=== PATIENT | female | born 1990 | race African-American/Black ===

== ENCOUNTER 2017-12-21 20:50 | Inpatient (IN) | payer OTHER ==
[~2017-12-21] VITALS: Ht 160 cm; Wt 80.7 kg
[~2017-12-21 20:50] MED LIST: AMITRIPTYLINE H50 MG PO; AMITRIPTYLINE50 MG PO; AUGMENTIN 875875 MG PO; AVONEX PEN30 MCG/0.5 IM; BUPROPION HCL150 M4 PO; CIPRO HC OTIC S10 ML NASB; CIPROFLOXACIN500 MG PO; COPAXONE40 MG/ML SC; ELIQUIS2.5 M1 PO; FERROUS SULFAT325 M1 PO; LIDOCAINE1 EACH TOP; LOVENOX 10100 MG/1 M SC; LOVENOX 3030 MG/0.1 SC; LUNESTA3 MG PO; METHOCARBAMOL750 MG PO; MOTRIN 400MG (400 MG PO; NEOMYCIN-POLYMY10 ML OTIC; OCREVUS300 MG/10 IV; OXYBUTYNIN CHLOR5 M2 PO; OXYBUTYNIN5 MG PO; PANTOPRAZOLE SO40 M1 PO; PREDNISONE10 MG PO; PREVACID 30MG30 MG PO; PROTONIX 40MG T40 MG PO; PROVERA5 M1 PO; RIVA15T PO; SOLU MEDROL; SOLU-MEDROL1000 MG IV; TECFIDERA240 MG PO; TIZANIDINE HCL2 M1 PO; TIZANIDINE HCL2 MG PO; TOPIRAMATE25 M1 PO; TOPIRAMATE50 M1 PO; TRAMADOL HCL50 M1 PO; TRAMADOL HCL50 MG PO; VERAPAMIL ER180 MG PO; VITAMIN B11000 MCG/M IM; VITAMIN D2000 UNI1 PO; VITAMIN D250000 UNIT PO; VITAMIN D50000 IU PO; XARELTO15 MG PO; XARELTO20 MG PO
--- NOTE | 2017-12-21 21:03 | ED GENERAL ADULT ---
History of Present Illness General Chief Complaint: General Adult Stated Complaint: HEADACHE AND SHOULDER PAIN Source: patient, old records Exam Limitations: no limitations Vital Signs & Intake/Output Vital Signs & Intake/Output Vital Signs Date Time Temp Pulse Resp B/P B/P Pulse O2 O2 Flow FiO2 Mean Ox Delivery Rate 12/21 2105 98.6 102 20 115/66 99 Room Air Allergies Coded Allergies: NO KNOWN ALLERGIES (09/18/15) Reconcile Medications Apixaban (Eliquis) 2.5 MG TABLET 1 TAB PO BID BLOOD THINNER (Reported) Bupropion HCl (Bupropion HCl Sr) 150 MG TABLET.ER 1 TAB PO DAILY MENTAL HEALTH (Reported) Cholecalciferol (Vitamin D3) (Vitamin D) 2,000 UNIT TABLET 1 TAB PO DAILY supplement Ciprofloxacin/Hydrocortisone (Cipro Hc Otic Suspension) 0.2 %-1 % DROPS.SUSP 2 SPRAY NASB AD PRN NASAL CONGESTION (Reported) Ergocalciferol (Vitamin D2) (Vitamin D2) 50,000 UNIT CAPSULE 1 CAP PO QSUN SUPPLEMENT (Reported) Lidocaine 5 % ADH..PATCH 1 PAT TOP AD PRN PAIN (Reported) Medroxyprogesterone Acetate (Provera) 5 MG TABLET 1 TAB PO AD PRN MESNTRUAL CYCLE (Reported) Methylprednisolone Sod Succ (Solu-Medrol) 1,000 MG VIAL 1,000 MG IV DAILY MS EXACERBATION Neomycin/Polymyxin B Sulf/Hc (Panfmamd-Anyflsmfc-Gj Ear Soln) 3.5 MG/ML-10,000 UNIT/ML-1 % SOLUTION 2-3 DROP OTIC AD PRN ITCHING (Reported) Ocrelizumab (Ocrevus) 300 MG/10 ML VIAL 300 MG IV Q6M MS (Reported) Oxybutynin Chloride 5 MG TABLET 2 TAB PO BID BLADDER (Reported) Pantoprazole Sodium 40 MG TABLET.DR 1 TAB PO DAILY GI (Reported) Tizanidine HCl 2 MG TABLET 1-2 TAB PO BID PRN MUSCLE SPASMS (Reported) Topiramate 50 MG TABLET 1 TAB PO DAILY MIGRAINES (Reported) Tramadol HCl 50 MG TABLET 2 TAB PO TID PAIN (Reported) Verapamil HCl (Verapamil ER) 180 MG CAP24H.PEL 1 CAP PO DAILY BP (Reported) Triage Note: PT BIBA FROM HOME WITH C/O HEADACHE, SHOULDER PAIN AND GENERAL MALAISE x 4 DAYS. EMS REPORTS THAT PT HAS RECENTLY STARTED A NEW COURSE OF STEROID TX FOR HER MS, AND WITH TX, PT HAS EXPERIENCED AN INCREASE IN OVERALL BODY PAIN. Triage Nurses Notes Reviewed? yes Onset: Abrupt Duration: week(s): (1), constant Timing: recent history Injury Environment: home Severity: moderate Severity Numbers: 10 No Modifying Factors: none Associated Symptoms: denies HPI: 27-year-old female with past medical history of multiple sclerosis followed by dr shafer, urinary incontinence, DVT/pulmonary embolism on elliquis, GERD, migraines, hypertension presents with family brought in by ambulance complaining of bilateral shoulder pain and generalized malaise weakness near falls and headache for the past 4 days. She just finished a course of home infusions of Solu-Medrol for her MS however she states this normally helps she states his most recent episode actually made her symptoms worse. She denies fever chills cough abdominal pain nausea vomiting diarrhea chest pain. (Jason Carmona) Past History Medical History Any Pertinent Medical History? 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 No (Jason Carmona) Review of Systems Review of Systems Constitutional: Reports: see HPI. Comments Review of systems: See HPI, All other systems negative. Constitutional, no chills no fever HEENT: no sore throat no congestion Cardiovascular: No chest pain , no palpitation Skin: no rashes, no change in skin Respiratory: No dyspnea no cough no sputum GI: No nausea no vomiting, no diarrhea : No dysuria No hematuria, no frequency Muscle skeletal: No joint pain, no back pain Neurologic: , no headache Heme/endocrine: No bruising Immunology: No lymphadenopathy (Jason Carmona) Physical Exam Physical Exam General Appearance: well developed/nourished, alert, awake Comments: Well-developed well-nourished person in no acute distress HEENT: Normal EENT exam; PERRL, EOMI, HEAD is atraumatic. moist mucous membranes. Neck: Supple, no lymphadenopathy, normal range of motion Back: Nontender, no CVA tenderness. Full range of motion Cardiovascular: Regular rate and rhythms no murmurs r Respiratory: Chest nontender.There were no bony deformities, no asymmetry. No respiratory distress. Patient speaking in full complete sentences. Breath sounds clear to auscultation bilaterally: NO W/R/R Abdomen: Soft, nontender nondistended, no appreciable organomegaly. Normal bowel sounds. No rebound/guarding, Extremity: No edema, full range of motion of extremities, normal and equal pulses bilaterally, 5 out of 5 strength noted to bilateral upper and lower extremities Neuro: Alert oriented x3, motor sensory normal, cranial nerves II through XII grossly intact. There were no obvious focal neurologic abnormalities. Skin: No appreciable rash on exposed skin, skin is warm and dry. Psych: Mood and affect is normal, memory and judgment is normal. Core Measures ACS in differential dx? No CVA/TIA Diagnosis: No Sepsis Present: No Sepsis Focused Exam Completed? No (Christiane RIGGINS,Jason) Progress Differential Diagnoses I considered the following diagnoses in my evaluation of the patient: [ms exacerbation, electrolyte abnormality, dehydration Plan of Care: Orders Procedure Date/time Status Regular Diet 12/22 B Active CBC WITHOUT DIFFERENTIAL 12/22 599 Active BASIC ELECTROLYTES PLUS BUN&CR 12/22 599 Active PT Evaluate & Treat 12/21 2341 Active Pathway - chart 12/21 2341 Active House Staff 12/21 234 Active Patient Data 12/21 224 Active OXYGEN SETUP (GEN) 12/21 2238 Active Saline Lock 12/21 2238 Active Admit to inpatient 12/21 2238 Active Vital Signs 12/21 2238 Active Activity/Ambulation 12/21 2238 Active Code Status 12/21 2238 Active URINALYSIS 12/21 2112 Complete COMPREHENSIVE METABOLIC PANEL 12/21 2112 Complete CBC WITHOUT DIFFERENTIAL 12/21 2112 Complete VTE Mechanical Prophylaxis 12/21 UNK Active Vital Signs 12/21 UNK Active Laboratory Tests 12/21/17 2202: Anion Gap 13, Estimated GFR > 60, BUN/Creatinine Ratio 15.0, Glucose 77, Calcium 9.1, Total Bilirubin 0.6, AST 6 L, ALT 30, Alkaline Phosphatase 37, Total Protein 6.3, Albumin 3.4 L, Globulin 2.9, Albumin/Globulin Ratio 1.2, CBC w Diff NO MAN DIFF REQ, RBC 4.20, MCV 80.6 L, MCH 25.9 L, MCHC 32.2 L, RDW 16.7 H, MPV 9.6, Gran % 78.1 H, Lymphocytes % 18.0 L, Monocytes % 3.1, Eosinophils % 0.7, Basophils % 0.1, Absolute Granulocytes 6.7 H, Absolute Lymphocytes 1.5, Absolute Monocytes 0.3, Absolute Eosinophils 0.1, Absolute Basophils 0 12/21/172124: Urine Color YEL, Urine Clarity CLEAR, Urine pH 6.0, Ur Specific [place] 1.020, Urine Protein NEG, Urine Ketones NEG, Urine Nitrite NEG, Urine Bilirubin NEG, Urine Urobilinogen 1.0, Ur Leukocyte Esterase NEG, Ur Microscopic EXAM NOT REQUIRED, Urine Hemoglobin NEG, Urine Glucose NEG Labs ordered old work. Patient medicated morphine IV fluids I spoke with over the phone he advised to hold the Solu-Medrol he will see the patient in the morning to get her pain under control fluids and admitted to medicine case d/w dr curtis agrees with plan Case discussed with Dr. goodwin - will admit 10 mEq potassium IV 40 mg potassium by mouth ordered 2319 on repeat evaluation patient resting in no acute distress she reports improvement in symptoms with morphine. Discussed with the patient and her family at length her results and admission plan which they're in agreement with Initial ED EKG: none (Jason Carmona) Departure Departure Time of Disposition: 2235 Disposition: STILL A PATIENT Condition: Stable Clinical Impression Primary Impression: Exacerbation of multiple sclerosis Referrals: Aldo Chery MD (PCP/Family) Departure Forms: Customer Survey General Discharge Information Admission Note Spoke With: Kai Goodwin MD Documentation of Exam: Documentation of any treatments & extenuating circumstances including Concerns Regarding Discharge (functional status, medication knowledge or non-compliance, living conditions, etc.) that warrant an admission rather than observation: Neurology consult TREND labs IV pain control IV fluids try to electrolytes premature discharge and he medically harmful she is a fall risk (Jason Carmona) PA/RADIO TESTER Co-Sign Statement Statement: ED Attending supervision documentation- x I saw and evaluated the patient. I have also reviewed all the pertinent lab results and diagnostic results. I agree with the findings and the plan of care as documented in the PA's/RADIO TESTER's documentation. Worsening MS symptoms and pain despite home solumedrol infusion [] I have reviewed the ED Record and agree with the PA's/RADIO TESTER's documentation. [] Additions or exceptions (if any) to the PAs/RADIO TESTER's note and plan are summarized below: [] (Pauline RODRIGUEZ,Ramin) Critical Care Note Critical Care Note Critical Care Time: non-applicable (Christiane RIGGINS,Jsaon)
[2017-12-21 22:08] LABS: ABSOLUTE BASOPHIL COUNT 0 /CUMM (0.0-0.2); ABSOLUTE EOSINOPHIL COUNT 0.1 /CUMM (0.0-0.7); ABSOLUTE GRANULOCYTE CT 6.7 /CUMM (1.4-6.5); ABSOLUTE LYMPH COUNT 1.5 /CUMM (1.2-3.4); ABSOLUTE MONOCYTE COUNT 0.3 /CUMM (0.10-0.60); BASOPHIL % 0.1 % (0.0-2.0); EOSINOPHIL % 0.7 % (0-5); GRANULOCYTE % 78.1 % (42.2-75.2); HEMATOCRIT 33.9 % (37-47); MEAN CORPUSCULAR HGB 25.9 PG (27.0-31.0); MEAN CORPUSCULAR HGB CONC 32.2 G/DL (33.0-37.0); MEAN CORPUSCULAR VOLUME 80.6 FL (81.0-99.0); MEAN PLATELET VOLUME 9.6 FL (7.4-10.4); PLATELET COUNT 255 /CUMM (130-400); RBC DISTRIBUTION WIDTH 16.7 % (11.5-14.5); WHITE BLOOD CELL COUNT 8.6 /CUMM (4.8-10.8)
--- NOTE | 2017-12-21 23:07 | History & Physical ---
Shakeel Briceno MD 12/21/17 8909: General Information and HPI MD Statement: I have seen and personally examined INNOCENTJUDY and documented this H&P. The patient is a 27 year old F who presented with a patient stated chief complaint of [recent MS exacerbation with presistent symptoms]. Source of Information: patient, old records Exam Limitations: no limitations History of Present Illness: Patient is a 25 patient is a 27-year-old female with a PMH significant for progressive MS, DVT/PE, migraines, hypertension, muscle spasms, GERD, urinary incontinence who was recently treated outpatient for MS exacerbation from with IV steroids injections, who presents to [facility] complaining of persistent bilateral shoulder pain, bilateral knee pain, back pain, she denies any eye pain, visual changes, lower extremity weakness. Patient reports that her MS exacerbations usually present with joint pain and weakness. She reports no improvement of her symptoms with the IV steroids, and over the past 2 days since her last infusion her symptoms have been getting worse. Secondary to her her lower extremity weakness she suffered a fall 2 days prior to admission she denied any associated dizziness, lightheadedness, chest pain, shortness of breath or loss of consciousness with this fall. Since the onset of her most recent exacerbation on 12/14/17 she has had poor by mouth intake and reported an episode of nausea and vomiting with her first food intake in the ED. She also complained of some chest tightness and a burning sensation of her substernal chest associated with food intake. Prior to this exacerbation she reported being able to walk with a walker however now she has been essentially bed bound due to lower extremity weakness. She endorses a mild frontal headache. She has urinary incontinence at baseline, however today she also experienced fecal incontinence for the first time. She denies any visual changes, eye pain, numbness or tingling. Patient follows closely with Dr. Tillman for MS. Allergies/Medications Allergies: Coded Allergies: NO KNOWN ALLERGIES (09/18/15) Home Med list Apixaban (Eliquis) 2.5 MG TABLET 1 TAB PO BID BLOOD THINNER (Reported) Bupropion HCl (Bupropion HCl Sr) 150 MG TABLET.ER 1 TAB PO DAILY MENTAL HEALTH (Reported) Cholecalciferol (Vitamin D3) (Vitamin D) 2,000 UNIT TABLET 1 TAB PO DAILY supplement Ciprofloxacin/Hydrocortisone (Cipro Hc Otic Suspension) 0.2 %-1 % DROPS.SUSP 2 SPRAY NASB AD PRN NASAL CONGESTION (Reported) Ergocalciferol (Vitamin D2) (Vitamin D2) 50,000 UNIT CAPSULE 1 CAP PO QSUN SUPPLEMENT (Reported) Lidocaine 5 % ADH..PATCH 1 PAT TOP AD PRN PAIN (Reported) Medroxyprogesterone Acetate (Provera) 5 MG TABLET 1 TAB PO AD PRN MESNTRUAL CYCLE (Reported) Methylprednisolone Sod Succ (Solu-Medrol) 1,000 MG VIAL 1,000 MG IV DAILY MS EXACERBATION Neomycin/Polymyxin B Sulf/Hc (Tygousrf-Nxibkdjcg-Lk Ear Soln) 3.5 MG/ML-10,000 UNIT/ML-1 % SOLUTION 2-3 DROP OTIC AD PRN ITCHING (Reported) Ocrelizumab (Ocrevus) 300 MG/10 ML VIAL 300 MG IV Q6M MS (Reported) Oxybutynin Chloride 5 MG TABLET 2 TAB PO BID BLADDER (Reported) Pantoprazole Sodium 40 MG TABLET.DR 1 TAB PO DAILY GI (Reported) Tizanidine HCl 2 MG TABLET 1-2 TAB PO BID PRN MUSCLE SPASMS (Reported) Topiramate 50 MG TABLET 1 TAB PO DAILY MIGRAINES (Reported) Tramadol HCl 50 MG TABLET 2 TAB PO TID PAIN (Reported) Verapamil HCl (Verapamil ER) 180 MG CAP24H.PEL 1 CAP PO DAILY BP (Reported) Past History Medical History Neurological: migraine, multiple sclerosis Cardiovascular: hypertension Respiratory: pulmonary embolism Gastrointestinal: GERD Hepatic: NONE Renal: urinary incontinence Musculoskeletal: muscle spasms Psychiatric: NONE Endocrine: NONE Blood Disorders: PE Cancer(s): NONE CONTINUING EDUCATION SPECIALIST/Reproductive: NONE History of MRSA: No History of VRE: No History of CDIFF: No Influenza Vaccine: 05/28/17 Surgical History Surgical History: appendectomy Past Family/Social History Family History Relations & Conditions if any Relation not specified for: FH: hypertension FH: lung cancer FHx: diabetes mellitus Psychosocial History Who Do You Live With? parent Services at Home: None Primary Language: Citizen Of [place] Smoking Status: Never Smoked ETOH Use: occasional use Illicit Drug Use: denies illicit drug use Functional Ability ADLs Independent: eating, toileting, bathing. Needs Assist: dressing. Ambulation: walker IADLs Needs Assist: transportation. Review of Systems Review of Systems Constitutional: Reports: no symptoms. EENTM: Reports: no symptoms. Cardiovascular: Reports: see HPI, chest pain (burning pain). Respiratory: Reports: no symptoms. GI: Reports: bowel incontinence, nausea, vomiting. Denies: melena, bloody stool. Genitourinary: Reports: see HPI (incontinence). Musculoskeletal: Reports: see HPI, back pain, joint pain (shoulders and knees). Skin: Reports: no symptoms. Neurological/Psychological: Reports: headache. Denies: numbness, paresthesia, tingling. Exam & Diagnostic Data Last 24 Hrs of Vital Signs/I&O Vital Signs Date Time Temp Pulse Resp B/P B/P Pulse O2 O2 Flow FiO2 Mean Ox Delivery Rate 12/22 0220 98.8 94 20 104/58 97 Room Air 12/22 0028 98.1 103 20 143/82 100 Room Air 12/21 2340 97 Room Air Room Air 12/21 2105 98.6 102 20 115/66 99 Room Air Intake & Output 12/22 0800 12/22 0000 12/21 1600 Intake Total 1240 Output Total 200 Balance 1040 Intake, IV 1000 Intake, Oral 240 Output, Urine 200 Patient 178 lb Weight Physical Exam General Appearance Alert, Oriented X3, Cooperative, No Acute Distress Skin acanthosis nigricans of the neck Skin Temp/Moisture Exam: Warm/Dry Sepsis Skin Exam (color): Normal for Ethnicity HEENT Atraumatic, PERRLA, EOMI, dry mucous membranes Cardiovascular Regular Rate, Normal S1, Normal S2, portacath in place of the L chest Lungs Clear to Auscultation, Normal Air Movement Abdomen Normal Bowel Sounds, Soft, No Tenderness Neurological Normal Speech, Normal Tone, Sensation Intact, Strength RLE 2/5, LLE 1/5, dysmetria of the L hand on finger to nose test Extremities No Clubbing, No Cyanosis, No Edema Vascular Normal Pulses, Pulses Symmetrical Last 24 Hrs of Labs/Dani: Laboratory Tests 12/21/17 2202: Anion Gap 13, Estimated GFR > 60, BUN/Creatinine Ratio 15.0, Glucose 77, Calcium 9.1, Total Bilirubin 0.6, AST 6 L, ALT 30, Alkaline Phosphatase 37, Total Protein 6.3, Albumin 3.4 L, Globulin 2.9, Albumin/Globulin Ratio 1.2, CBC w Diff NO MAN DIFF REQ, RBC 4.20, MCV 80.6 L, MCH 25.9 L, MCHC 32.2 L, RDW 16.7 H, MPV 9.6, Gran % 78.1 H, Lymphocytes % 18.0 L, Monocytes % 3.1, Eosinophils % 0.7, Basophils % 0.1, Absolute Granulocytes 6.7 H, Absolute Lymphocytes 1.5, Absolute Monocytes 0.3, Absolute Eosinophils 0.1, Absolute Basophils 0 12/21/175: Urine Color YEL, Urine Clarity CLEAR, Urine pH 6.0, Ur Specific [place] 1.020, Urine Protein NEG, Urine Ketones NEG, Urine Nitrite NEG, Urine Bilirubin NEG, Urine Urobilinogen 1.0, Ur Leukocyte Esterase NEG, Ur Microscopic EXAM NOT REQUIRED, Urine Hemoglobin NEG, Urine Glucose NEG Assessment/Plan Assessment: Patient is a 25 patient is a 27-year-old female with a PMH significant for progressive MS, DVT/PE, migraines, hypertension, muscle spasms, GERD, urinary incontinence who was recently treated outpatient for MS exacerbation from with IV steroids injections, who presents to [facility] complaining of persistent bilateral shoulder pain, bilateral knee pain, back pain, she denies any eye pain, visual changes, lower extremity weakness. Vital signs on admission: T 98.6, pulse 102, RR 20, BP 115/66, pulse ox 99% on room air Labs: WBC 8.6, H/H 10.9/33.9, sodium 143, potassium 3.0, chloride 110, CO2 20, UA unremarkable. Problem list #Recent MS exacerbation with persistent neurologic symptoms #Hypokalemia #Chronic medical problems Plan -Admit to general medicine -Blood cultures to Workup for possible infection as cause for prolongation of symptoms of MS exacerbation -Hypokalemia, repleted orally and intravenously in ED, continue to monitor electrolytes, replete as needed - Dr. Tillman informed by ED, place formal consult in a.m. -adequate pain control -Continue home medications -Serial neuro checks -IV hydration with NS Diet: Heart healthy DVT prophylaxis: Arianne Camarena CODE STATUS: Full code As Ranked By This Provider Problem List: 1. Lower extremity weakness 2. Joint pain Core Measures/Misc (06/04) Acute Coronary Syndrome ACS Diagnosis: No Congestive Heart Failure Congestive Heart Failure Diagnosis No Cerebrovascular Accident CVA/TIA Diagnosis: No VTE (View Protocol) VTE Risk Factors VTE (Previous) No Mechanical VTE Prophylaxis d/t N/A MechProphylax Ordered No VTE Pharm Prophylaxis d/t NA PharmProphylax ordered Sepsis (View protocol) Sepsis Present: No Harjinder Reyes 12/22/17 0244: Resident Review Statement Resident Statement: examined this patient, discussed with biology internship, agreed with biology internship, reviewed images Other Findings: 27-year-old woman with past medical history of progressive multiple sclerosis, urinary incontinence, DVT/pulmonary embolism on eliquis, GERD, migraines, hypertension and muscle spasm came to [facility] for evaluation of worsening bilateral shoulder and knee pain and worsening left lower extremity weakness. States she saw Ronan Tillman MD about a week ago for these symptoms and was treated with a 5 day course of IV steroids. She noticed no improvement with the treatment continue to experience bilateral shoulder, knee and mid back pain. Her weakness worsened to a point where 2 days ago she fell down on her right knee, denies loss of consciousness headache, dizziness. Endorses some mild nausea, and 2 episodes of vomiting which contain and digested food. Has had decreased by mouth intake these past few days, and some chills. Yesterday she also had bowel incontinence which was new for her. On interview she also had some chest tightness which describes as burning nonradiating and mid epigastric and after she had a sandwich. Denies fevers, rash, numbness, tingling, neck stiffness, dysuria, abdominal pain or worsening severe headache. Vitals temperature 96.6, heart rate 102, blood pressure 1:15/66, 99% on room air Examination as above Labs significant for microcytic anemia and hypokalemia rest of labs and UA unremarkable Assessment and plan: MS exacerbation possible triggered by possible underlying infection given her chills,malaise Dr. Tillman informed by ED will come and see the patient tomorrow She apparently had an MRI done about 2 months ago. f/up blood cultures Continue tizanidine, tramadol and lidoderm patch for pain control with when necessary morphine for severe pain. Hold for sedation Continue oxybutinin for urinary incontinence. PT/OT Gentle IV fluids Hypokalemic repleted, follow up labs in am could contribute to her weakness H/o DVT/PE. continue eliquis Migraine headaches. Continue topamax HTN. Continue verapamil. DVT ppx eliquis regular diet when able Full code. Kai Goodwin 12/22/17 0603: Attending MD Review Statement Attending Statement Attending MD Statement: examined this patient, discuss w/resident/PA/LANDSCAPE NURSERYMAN, agreed w/resident/PA/LANDSCAPE NURSERYMAN, reviewed EMR data (avail), reviewed images, amended to note Attending Assessment/Plan: CC: Shoulder pain, headache, lethargy PMH: MS, DVT/PE, migraine, HTN, urinary incontinence Patient came to ER for several complaints. She states that since last 8-10 days she has been feeling malaise, neurological weakness mostly in lower extremities, lethargy, bilateral shoulder pain, leg pain, mid back pain, chills, decreased by mouth intake, nausea and dry heaving, one episode of bowel incontinence for all this complaints she called her neurologist considering MS exacerbation, was prescribed five-day course of IV methylprednisolone infusion. She usually feels better after such treatment but this time was not improving so she was suggested to go to ER. Patient says that she has bilateral lower extremity weakness itches chronic to her, usually walks with walker. She fell down 2 days back when left leg gave out on her. She denies any double vision, blurry vision, swallowing difficulty, sensitivity deficits. LMP was December 12. She has a Port-A-Cath on right side. Denies any urinary burning, irritation, pelvic pain, vaginal discharge, vomiting, diarrhea, skin lesions or inflammation, syncope. Vitals: Afebrile, pulse 102, RR 20, blood pressure 115/66, saturating 97% on room air On exam: A O 3, cooperative, no acute distress, neck supple, JVD normal, no lymphadenopathy, mucosa moist, no dependent edema, no obvious skin rashes or inflammation CVS: S1-S2, RRR. RS: Clear to auscultate bilaterally. Abdomen: Soft , NT, ND, bowel sounds present. PERRLA, EOMI, no nystagmus, no APD, right upper extremity strength 5/5, left up for extremity strength 4/5, right lower extremity strength 4/5, left lower extremity strength 5/5, increased tone, reflexes could not be elicited, cerebellar signs sign normal. Peripheral perfusion and pulses normal Assessment and plan 27 year old female with history of multiple sclerosis presented in ER for worsening of symptoms with shoulder pain, knee pain, malaise, weakness, lethargy , lower extremity neurological weakness. Patient completed 5 day course of IV methylprednisolone at home for suspected MS exacerbation. Patient has decreased strength on left upper and lower extremity as compared to right side more so on lower extremity but patient states that that is chronic for her, she walks with walker. According to previous notes, she gets worsening of lower extremity weakness with MS exacerbation. As she has already completed 5 day IV methylprednisolone short course, neurologist was called from ER who suggested to continue pain control, IV hydration and he will reassess in a.m. for high-dose steroids. Any infection source can worsen symptoms of existing MS so we will rule out any such causes. + Suspected MS exacerbation + History of DVT/PE, migraine, HTN, urinary incontinence - Admit to general medicine - Serial neuro checks - Adequate pain control - Blood culture, urine culture - Neuro consult - Continue gentle hydration - Continue all her home medications - Continue Eliquis for DVT prophylaxis - Replete potassium, repeat labs in a.m. - Check urine test - Consider checking sickle cell trait patient has pain symptoms and chronic anemia
[2017-12-22 02:20] VITALS: BP 104/58
--- NOTE | 2017-12-22 06:05 | Admission Certification ---
Admission Certification Certification Statement - As attending physician, I certify that at the time of - admission, based on clinical presentation, severity of - symptoms, need for further diagnostic testing and - therapeutic interventions, and risk of adverse outcomes - without in-hospital treatment, in my clinical assessment, - this patient requires an acute hospital stay for a minimum - of two nights or longer. I have also considered psychsocial - factors such as support system, advanced age, financial - issues, cognitive issues, and failed out-patient treatments, - past re-admission history, safety of patient, and lack of - compliance as applicable. Specific rationale supporting this admission is: Suspected MS exacerbation
[2017-12-22 07:02] VITALS: BP 106/60
--- NOTE | 2017-12-22 07:40 | PN- Housestaff ---
Viral Valle 12/22/17 0740: Subjective Follow-up For: MS exacerbation Subjective: Patient reports diffused joint and substernal pain 8/10 in severity, nonreproducible. She also reports LLE weakness and unable to ambulate. Father at bedside reports her pain has not been this severe. Review of Systems Constitutional: Reports: see HPI. Objective Last 24 Hrs of Vital Signs/I&O Vital Signs Date Time Temp Pulse Resp B/P B/P Pulse O2 O2 Flow FiO2 Mean Ox Delivery Rate 12/22 0702 98.5 94 20 106/60 96 Room Air 12/22 0220 98.8 94 20 104/58 97 Room Air 12/22 0028 98.1 103 20 143/82 100 Room Air 12/21 2340 97 Room Air Room Air 12/21 2105 98.6 102 20 115/66 99 Room Air Intake & Output 12/22 1600 12/22 0800 12/22 0000 Intake Total 1880 Output Total 500 Balance 1380 Intake, IV 1400 Intake, Oral 480 Output, Urine 500 Patient 178 lb Weight Physical Exam General Appearance: Oriented X3, Lethargic Skin: R chest cath port Cardiovascular: Regular Rate, Normal S1, Normal S2 Lungs: Clear to Auscultation, Normal Air Movement Abdomen: Normal Bowel Sounds, Soft, No Tenderness Extremities: Able to raise RLE against gravity. Unable to raise LLE due to decreased motor strength Current Medications: Current Medications Sig/Angélica Start time Last Medication Dose Route Stop Time Status Admin Apixaban 2.5 MG BID 12/22 1000 AC PO Bupropion HCl 150 MG DAILY 12/22 1000 AC PO Cholecalciferol 2,000 IU DAILY 12/22 1000 AC PO Lidocaine 1 PAT DAILY PRN 12/22 0315 AC EXT Melatonin 5 MG ONCE ONE 12/22 0300 DC 12/22 PO 12/22 0301 0310 Morphine Sulfate 4 MG Q6P PRN 12/22 0230 AC 12/22 IV 0311 Morphine Sulfate 0 .STK-MED ONE 12/22 2127 DC .ROUTE Morphine Sulfate 4 MG ONCE ONE 12/21 2114 DC 12/21 IV 12/21 Omeprazole 40 MG DAILY AC 12/22 0700 AC PO Oxybutynin Chloride 10 MG BID 12/22 1000 AC PO Potassium Chloride 40 MEQ ONCE ONE 12/22 09 DC PO 04/06 0901 Potassium Chloride 0 .STK-MED ONE 12/21 2325 DC PO Potassium Chloride 10 MEQ ONCE ONE 12/21 2244 DC 12/21 IV 12/21 Potassium Chloride 40 MEQ ONCE ONE 12/21 2244 DC 12/21 PO 12/21 Sodium Chloride 1,000 ML Q10H 12/22 0230 AC 12/22 IV 12/22 2228 031 Sodium Chloride 1,000 ML BOLUS ONE 12/21 2114 DC 12/21 IV 12/21 221 214 Tizanidine HCl 4 MG BID PRN 12/22 0415 AC PO Tizanidine HCl 4 MG BID PRN 12/22 0315 DC PO Topiramate 50 MG DAILY 12/22 1000 AC PO Tramadol HCl 100 MG TID 12/22 1000 AC PO Verapamil HCl 180 MG DAILY 12/22 1000 AC PO Last 24 Hrs of Lab/Dani Results Last 24 Hrs of Labs/Mics: Laboratory Tests 12/22/17 0655: Anion Gap 9, Estimated GFR > 60, BUN/Creatinine Ratio 13.3, Total Beta HCG NEGATIVE, CBC w Diff NO MAN DIFF REQ, RBC 3.69 L, MCV 80.2 L, MCH 26.7 L, MCHC 33.3, RDW 17.0 H, MPV 10.2, Gran % 72.7, Lymphocytes % 18.6 L, Monocytes % 7.5, Eosinophils % 1.0, Basophils % 0.2, Absolute Granulocytes 6.2, Absolute Lymphocytes 1.6, Absolute Monocytes 0.6, Absolute Eosinophils 0.1, Absolute Basophils 0 12/22/17 0632: Urine Test NEGATIVE 12/22/17 0600: Total Beta HCG Cancelled 12/21/17 2202: Anion Gap 13, Estimated GFR > 60, BUN/Creatinine Ratio 15.0, Glucose 77, Calcium 9.1, Total Bilirubin 0.6, AST 6 L, ALT 30, Alkaline Phosphatase 37, Total Protein 6.3, Albumin 3.4 L, Globulin 2.9, Albumin/Globulin Ratio 1.2, CBC w Diff NO MAN DIFF REQ, RBC 4.20, MCV 80.6 L, MCH 25.9 L, MCHC 32.2 L, RDW 16.7 H, MPV 9.6, Gran % 78.1 H, Lymphocytes % 18.0 L, Monocytes % 3.1, Eosinophils % 0.7, Basophils % 0.1, Absolute Granulocytes 6.7 H, Absolute Lymphocytes 1.5, Absolute Monocytes 0.3, Absolute Eosinophils 0.1, Absolute Basophils 0 12/21/175: Urine Color YEL, Urine Clarity CLEAR, Urine pH 6.0, Ur Specific [place] 1.020, Urine Protein NEG, Urine Ketones NEG, Urine Nitrite NEG, Urine Bilirubin NEG, Urine Urobilinogen 1.0, Ur Leukocyte Esterase NEG, Ur Microscopic EXAM NOT REQUIRED, Urine Hemoglobin NEG, Urine Glucose NEG Microbiology 12/22 0755 BLOOD: Blood Culture - RECD 12/22 07 BLOOD: Blood Culture - RECD Assessment/Plan Assessment: Ms. Smith is a 27-year-old female with a PMH significant for progressive MS, DVT/PE, migraines, hypertension, muscle spasms, GERD, urinary incontinence who was recently treated outpatient for MS exacerbation from with IV steroids injections, who presents LLE weakness and diffused joint pain. At baseline patient walks with a walker. She has a cath port for plasmapheresis Problem list: MS exacerbation Plan: Nystatin suspension for esophageal discomfort for possible Candidiasis Start Fioricet for migraines Random cortisol Neurology recommendations-Dr. Tillman appreciated Endo consult Diet: Heart healthy DVT ppx: Code: Full Problem List: 1. Multiple sclerosis exacerbation Pain Ratin Pain Location: Diffused Pain Goal: Pain 7 or less Pain Plan: Tramadol, Morphine Tomorrow's Labs & Rationales: CBC, BEP Felisa RODRIGUEZ,Dino 12/22/17 1423: Attending MD Review Statement Attending Statement Attending MD Statement: examined this patient, discuss w/resident/PA/QUALITY HEAD, agreed w/resident/PA/QUALITY HEAD, reviewed EMR data (avail), discussed with nursing, discussed with case mgmt, amended to note Attending Assessment/Plan: Patient seen and examined. Records reviewed. Lying in bed complaining of lethargy. Denies any focal weakness. Complains of diffuse pain in the upper chest bilaterally neck and knees. Admits to chronic left shoulder pain for which she is on tramadol at home. On examination pain is not reproducible in the chest wall. She has normal range of motion of the shoulders. She does complain of pain with passive movement of the lower extremities. She moves her lower extremities and upper extremities very weakly to command. She reports that at baseline she is able to ambulate with a walker. Random cortisol level was checked and was found to be markedly low. She received steroid therapy for her MS exacerbation. Last night she received steroids was about a week ago. Prior to that was about 4 months ago. Patient also complains of burning sensation when swallowing. On examination she has no evidence of oral candidiasis. She reports migraine symptoms. She states that she gets this frequently. She reports no relief on current therapy. Problems: 1. Physical deconditioning 2. Adrenal insufficiency 3. Odynophagia Plan: -Patient's deconditioning is likely secondary to adrenal insufficiency. Begin patient on stress dose of hydrocortisone. Obtain endocrinology consult. Check TSH level per -Physical therapy consultation. -Her odynophagia is likely secondary to esophagitis. Probably due to Camelia due to her chronic steroid use and immunosuppressed status from therapy for her multiple sclerosis. Begin patient on lidocaine oral solution. Will begin empiric therapy with fluconazole 400 mg 1 today and then 200 mg daily. If no improvement in 72 hours recommend GI consultation for possible EGD. -Begin patient on Fioricet for her migraines.
[2017-12-22 08:08] LABS: ABSOLUTE BASOPHIL COUNT 0 /CUMM (0.0-0.2); ABSOLUTE EOSINOPHIL COUNT 0.1 /CUMM (0.0-0.7); ABSOLUTE GRANULOCYTE CT 6.2 /CUMM (1.4-6.5); ABSOLUTE LYMPH COUNT 1.6 /CUMM (1.2-3.4); ABSOLUTE MONOCYTE COUNT 0.6 /CUMM (0.10-0.60); BASOPHIL % 0.2 % (0.0-2.0); GRANULOCYTE % 72.7 % (42.2-75.2); HEMATOCRIT 29.6 % (37-47); MEAN CORPUSCULAR HGB 26.7 PG (27.0-31.0); MEAN CORPUSCULAR HGB CONC 33.3 G/DL (33.0-37.0); MEAN CORPUSCULAR VOLUME 80.2 FL (81.0-99.0); MEAN PLATELET VOLUME 10.2 FL (7.4-10.4); PLATELET COUNT 222 /CUMM (130-400); RED BLOOD CELL CT 3.69 /CUMM (4.20-5.40); WHITE BLOOD CELL COUNT 8.5 /CUMM (4.8-10.8)
[2017-12-22 14:35] VITALS: BP 110/72
--- NOTE | 2017-12-22 17:57 | Cons- Endocrinology ---
General Information and HPI Consulting Request Date of Consult: 12/22/17 Requested By: Dr Roberto Reason for Consult: hypocortisolism Source of Information: patient, old records Exam Limitations: no limitations History of Present Illness: This 27-year-old woman came to the emergency room because of generalized weakness and difficulty eating. She had received a 5 day course of high-dose steroid therapy for treatment of her MS. She felt she was having an MS exacerbation prior to getting the steroid therapy. However the steroids seem to make her feel worse rather than better. When she presented to the ER she was found to have hypokalemia. In addition the patient complains of burning in her esophagus when she tries to swallow food. Since coming to the hospital she has been hydrated with IV fluids and been given some potassium supplementation. The patient states her MS is treated with plasma exchange at [place] once a month. She is also on muscle relaxants. She takes tramadol for pain but is not using on narcotic pain medication. She has incontinence of urine. Allergies/Medications Allergies: Coded Allergies: NO KNOWN ALLERGIES (09/18/15) Home Med List: Apixaban (Eliquis) 2.5 MG TABLET 1 TAB PO BID BLOOD THINNER (Reported) Bupropion HCl (Bupropion HCl Sr) 150 MG TABLET.ER 1 TAB PO DAILY MENTAL HEALTH (Reported) Cholecalciferol (Vitamin D3) (Vitamin D) 2,000 UNIT TABLET 1 TAB PO DAILY supplement Ciprofloxacin/Hydrocortisone (Cipro Hc Otic Suspension) 0.2 %-1 % DROPS.SUSP 2 SPRAY NASB AD PRN NASAL CONGESTION (Reported) Ergocalciferol (Vitamin D2) (Vitamin D2) 50,000 UNIT CAPSULE 1 CAP PO QSUN SUPPLEMENT (Reported) Lidocaine 5 % ADH..PATCH 1 PAT TOP AD PRN PAIN (Reported) Medroxyprogesterone Acetate (Provera) 5 MG TABLET 1 TAB PO AD PRN MESNTRUAL CYCLE (Reported) Methylprednisolone Sod Succ (Solu-Medrol) 1,000 MG VIAL 1,000 MG IV DAILY MS EXACERBATION Neomycin/Polymyxin B Sulf/Hc (Ecxbducd-Fwxgszlwz-Em Ear Soln) 3.5 MG/ML-10,000 UNIT/ML-1 % SOLUTION 2-3 DROP OTIC AD PRN ITCHING (Reported) Ocrelizumab (Ocrevus) 300 MG/10 ML VIAL 300 MG IV Q6M MS (Reported) Oxybutynin Chloride 5 MG TABLET 2 TAB PO BID BLADDER (Reported) Pantoprazole Sodium 40 MG TABLET.DR 1 TAB PO DAILY GI (Reported) Tizanidine HCl 2 MG TABLET 1-2 TAB PO BID PRN MUSCLE SPASMS (Reported) Topiramate 50 MG TABLET 1 TAB PO DAILY MIGRAINES (Reported) Tramadol HCl 50 MG TABLET 2 TAB PO TID PAIN (Reported) Verapamil HCl (Verapamil ER) 180 MG CAP24H.PEL 1 CAP PO DAILY BP (Reported) Current Medications: Current Medications Sig/Angélica Start time Last Medication Dose Route Stop Time Status Admin Acetaminophen/ 1 TAB Q4P PRN 12/22 1045 AC 12/22 Butalbital/Caffeine PO 1251 Apixaban 2.5 MG BID 12/22 1000 AC 12/22 PO 1002 Bupropion HCl 150 MG DAILY 12/22 1000 AC 12/22 PO 1002 Cholecalciferol 2,000 IU DAILY 12/22 1000 AC 12/22 PO 1002 Fluconazole 200 MG DAILY 12/23 1000 AC PO Fluconazole 400 MG ONCE ONE 12/22 1515 DC PO 12/22 1516 Hydrocortisone 100 MG ONCE ONE 12/22 1630 UNVr PO 12/22 1631 Lidocaine 15 ML BID 12/22 1514 AC PO Lidocaine 1 PAT DAILY PRN 12/22 0315 AC EXT Melatonin 5 MG ONCE ONE 12/22 0300 DC 12/22 PO 12/22 0301 0310 Morphine Sulfate 1 MG Q4 HRS NEEDED PRN 12/22 1045 AC 12/22 IV 1157 Morphine Sulfate 4 MG Q6P PRN 12/22 0230 AC 12/22 IV 0311 Morphine Sulfate 0 .STK-MED ONE 12/218 DC .ROUTE Morphine Sulfate 4 MG ONCE ONE 12/21 2114 DC 12/21 IV 12/22 2115 2145 Nystatin 5 ML 4 TIMES/DAY 12/22 1035 DC 12/22 PO 1251 Omeprazole 40 MG DAILY AC 12/22 0700 AC 12/22 PO 1003 Oxybutynin Chloride 10 MG BID 12/22 1000 AC 12/22 PO 1002 Patient Medication 1 ED ONE ONE 12/22 1330 DC Teaching ED 12/22 1331 Potassium Chloride 40 MEQ ONCE ONE 12/22 0900 DC 12/22 PO 12/22 0901 1002 Potassium Chloride 0 .STK-MED ONE 12/21 2326 DC PO Potassium Chloride 10 MEQ ONCE ONE 12/21 2244 DC / IV 12/21 2245 232 Potassium Chloride 40 MEQ ONCE ONE 12/21 2244 DC / PO 12/21 2245 232 Sodium Chloride 1,000 ML Q10H 12/22 0230 AC / IV 12/22 2229 1250 Sodium Chloride 1,000 ML BOLUS ONE 12/21 2114 DC / IV 12/21 2214 2145 Tizanidine HCl 4 MG BID PRN 12/22 0415 AC PO Tizanidine HCl 4 MG BID PRN 12/22 0315 DC PO Topiramate 50 MG DAILY 12/22 1000 AC 12/22 PO 1002 Tramadol HCl 100 MG TID 12/22 1000 AC 12/22 PO 1548 Verapamil HCl 180 MG DAILY 12/22 1000 AC 12/22 PO 1003 Review of Systems Review of Systems Constitutional: Denies: chills, fever. Cardiovascular: Denies: chest pain. Respiratory: Denies: short of breath. Skin: Reports: dryness. Neurological/Psychological: Reports: paresthesia, tingling, weakness. Past History Travel History Traveled to [place] past 21 day No Medical History Blood Transfusion Hx: No Neurological: migraine, multiple sclerosis Cardiovascular: hypertension Respiratory: pulmonary embolism Gastrointestinal: GERD Hepatic: NONE Renal: urinary incontinence Musculoskeletal: muscle spasms Psychiatric: NONE Endocrine: NONE Blood Disorders: PE Cancer(s): NONE INTAKE COORDINATOR/Reproductive: NONE Surgical History Surgical History: appendectomy Family History Relations & Conditions If Any: Relation not specified for: FH: hypertension FH: lung cancer FHx: diabetes mellitus Psychosocial History Who Do You Live With? parent Services at Home: None Primary Language: Palestinian Smoking Status: Never Smoked ETOH Use: occasional use Illicit Drug Use: denies illicit drug use Functional Ability ADLs Independent: eating, toileting, bathing. Needs Assist: dressing. Ambulation: walker IADLs Needs Assist: transportation. Exam & Diagnostic Data Last 24 Hrs of Vital Signs/I&O Vital Signs Date Time Temp Pulse Resp B/P B/P Pulse O2 O2 Flow FiO2 Mean Ox Delivery Rate 12/22 1435 98.9 107 18 110/72 91 Room Air 12/22 1003 118/80 12/22 0702 98.5 94 20 106/60 96 Room Air 12/22 0220 98.8 94 20 104/58 97 Room Air 12/22 0028 98.1 103 20 143/82 100 Room Air / 2340 97 Room Air Room Air / 2105 98.6 102 20 115/66 99 Room Air Intake & Output 12/22 1600 12/22 0800 04/ 0000 Intake Total 1550 1880 Output Total 250 500 Balance 1300 1380 Intake, IV 800 1400 Intake, Oral 750 480 Output, Urine 250 500 Patient 178 lb Weight Vital Signs Date Time Temp Pulse Resp B/P B/P Pulse O2 O2 Flow FiO2 Mean Ox Delivery Rate 12/22 143 98.9 107 18 110/72 91 Room Air 12/22 1003 118/80 12/22 0702 98.5 94 20 106/60 96 Room Air 12/22 0220 98.8 94 20 104/58 97 Room Air 12/22 0028 98.1 103 20 143/82 100 Room Air 12/21 2340 97 Room Air Room Air 12/21 2105 98.6 102 20 115/66 99 Room Air Intake & Output 12/22 1600 12/22 0800 04/ 0000 Intake Total 1550 1880 Output Total 250 500 Balance 1300 1380 Intake, IV 800 1400 Intake, Oral 750 480 Output, Urine 250 500 Patient 178 lb Weight Physical Exam General Appearance: alert, awake, comfortable Head: normal appearance Eyes: Bilateral: normal appearance. Neck: normal inspection Respiratory: normal breath sounds Cardiovascular: tachycardia Gastrointestinal: normal bowel sounds, soft Extremities: normal inspection Skin: warm/dry Labs/Dani Results: Laboratory Tests 12/22 12/22 04/ 0655 0632 0600 Chemistry Sodium (137 - 145 mmol/L) 144 Potassium (3.5 - 5.1 mmol/L) 3.2 L Chloride (98 - 107 mmol/L) 113 H Carbon Dioxide (22 - 30 mmol/L) 21 L Anion Gap (5 - 16) 9 BUN (7 - 17 mg/dL) 12 Creatinine (0.5 - 1.0 mg/dL) 0.9 Estimated GFR (>60 ml/min) > 60 BUN/Creatinine Ratio (7 - 25 %) 13.3 TSH (0.270 - 4.200 uIU/mL) 1.500 Thyroxine (T4) (4.5 - 10.9 ug/dL) 8.8 Total Beta HCG (NEGATIVE) NEGATIVE Cancelled Cortisol AM Sample (4.46 - 22.7 ug/dL) 2.8 L Hematology CBC w Diff NO MAN DIFF REQ WBC (4.8 - 10.8 /CUMM) 8.5 RBC (4.20 - 5.40 /CUMM) 3.69 L Hgb (12.0 - 16.0 G/DL) 9.9 L Hct (37 - 47 %) 29.6 L MCV (81.0 - 99.0 FL) 80.2 L MCH (27.0 - 31.0 PG) 26.7 L MCHC (33.0 - 37.0 G/DL) 33.3 RDW (11.5 - 14.5 %) 17.0 H Plt Count (130 - 400 /CUMM) 222 MPV (7.4 - 10.4 FL) 10.2 Gran % (42.2 - 75.2 %) 72.7 Lymphocytes % (20.5 - 51.1 %) 18.6 L Monocytes % (1.7 - 9.3 %) 7.5 Eosinophils % (0 - 5 %) 1.0 Basophils % (0.0 - 2.0 %) 0.2 Absolute Granulocytes (1.4 - 6.5 /CUMM) 6.2 Absolute Lymphocytes (1.2 - 3.4 /CUMM) 1.6 Absolute Monocytes (0.10 - 0.60 /CUMM) 0.6 Absolute Eosinophils (0.0 - 0.7 /CUMM) 0.1 Absolute Basophils (0.0 - 0.2 /CUMM) 0 Urines Urine Test NEGATIVE 12/21 12/21 2202 2125 Chemistry Sodium (137 - 145 mmol/L) 143 Potassium (3.5 - 5.1 mmol/L) 3.0 L Chloride (98 - 107 mmol/L) 110 H Carbon Dioxide (22 - 30 mmol/L) 20 L Anion Gap (5 - 16) 13 BUN (7 - 17 mg/dL) 15 Creatinine (0.5 - 1.0 mg/dL) 1.0 Estimated GFR (>60 ml/min) > 60 BUN/Creatinine Ratio (7 - 25 %) 15.0 Glucose (65 - 99 mg/dL) 77 Calcium (8.4 - 10.2 mg/dL) 9.1 Total Bilirubin (0.2 - 1.3 mg/dL) 0.6 AST (14 - 36 U/L) 6 L ALT (9 - 52 U/L) 30 Alkaline Phosphatase (<127 U/L) 37 Total Protein (6.3 - 8.2 g/dL) 6.3 Albumin (3.5 - 5.0 g/dL) 3.4 L Globulin (1.9 - 4.2 gm/dL) 2.9 Albumin/Globulin Ratio (1.1 - 2.2 %) 1.2 Hematology CBC w Diff NO MAN DIFF REQ WBC (4.8 - 10.8 /CUMM) 8.6 RBC (4.20 - 5.40 /CUMM) 4.20 Hgb (12.0 - 16.0 G/DL) 10.9 L Hct (37 - 47 %) 33.9 L MCV (81.0 - 99.0 FL) 80.6 L MCH (27.0 - 31.0 PG) 25.9 L MCHC (33.0 - 37.0 G/DL) 32.2 L RDW (11.5 - 14.5 %) 16.7 H Plt Count (130 - 400 /CUMM) 255 MPV (7.4 - 10.4 FL) 9.6 Gran % (42.2 - 75.2 %) 78.1 H Lymphocytes % (20.5 - 51.1 %) 18.0 L Monocytes % (1.7 - 9.3 %) 3.1 Eosinophils % (0 - 5 %) 0.7 Basophils % (0.0 - 2.0 %) 0.1 Absolute Granulocytes (1.4 - 6.5 /CUMM) 6.7 H Absolute Lymphocytes (1.2 - 3.4 /CUMM) 1.5 Absolute Monocytes (0.10 - 0.60 /CUMM) 0.3 Absolute Eosinophils (0.0 - 0.7 /CUMM) 0.1 Absolute Basophils (0.0 - 0.2 /CUMM) 0 Urines Urine Color (YEL,AMB,STR) YEL Urine Clarity (CLEAR) CLEAR Urine pH (5.0 - 8.0) 6.0 Ur Specific [place] (1.001 - 1.035) 1.020 Urine Protein (NEG,<30 MG/DL) NEG Urine Ketones (NEG) NEG Urine Nitrite (NEG) NEG Urine Bilirubin (NEG) NEG Urine Urobilinogen (0.1 - 1.0 EU/dl) 1.0 Ur Leukocyte Esterase (NEG) NEG Ur Microscopic EXAM NOT REQUIRED Urine Hemoglobin (NEG) NEG Urine Glucose (N MG/DL) NEG Assessment/Plan Assessment/Plan This 27-year-old woman with a history of MS treated with high-dose steroids for 5 days with her last dose on on 12/18/2017 which is a few days prior to admission. A cortisol level done in the morning has returned at 2.8. The low cortisol could be the result of high-dose steroids suppressing the pituitary adrenal axis. The patient's thyroid tests are normal. In addition, the patient presents with hypokalemia also probably due to high-dose steroids. The hypokalemia could be contributing to her generalized weakness and her feeling even more poorly prior to admission than she did before the steroids. Her blood pressure at this time is normal. I would not give the patient hydrocortisone at this point. We could give the patient dexamethasone 1 mg daily starting this evening. Tomorrow a.m. we should do a Cortrosyn stimulation test. We should give 1 amp of Cortrosyn IV bolus and flush it in. One hour later we should draw a cortisol level. In addition I would obtain an aldosterone level tomorrow a.m.. Along with BUN/creatinine electrolytes. We need to continue to replete her potassium. The patient also has symptoms of dysphagia. She could be placed on a proton pump inhibitor. If her symptoms do not resolve a GI consult should be done and panendoscopy considered. Consult Acknowledgment - Thank you for your consult request.
[2017-12-22 22:31] VITALS: BP 110/80
[2017-12-23 06:59] VITALS: BP 134/82
[2017-12-23 08:56] LABS: ABSOLUTE BASOPHIL COUNT 0 /CUMM (0.0-0.2); ABSOLUTE EOSINOPHIL COUNT 0.1 /CUMM (0.0-0.7); ABSOLUTE GRANULOCYTE CT 7.7 /CUMM (1.4-6.5); ABSOLUTE LYMPH COUNT 0.9 /CUMM (1.2-3.4); ABSOLUTE MONOCYTE COUNT 0.4 /CUMM (0.10-0.60); BASOPHIL % 0.1 % (0.0-2.0); EOSINOPHIL % 1.6 % (0-5); GRANULOCYTE % 84.7 % (42.2-75.2); HEMATOCRIT 30.5 % (37-47); MEAN CORPUSCULAR HGB 26.4 PG (27.0-31.0); MEAN CORPUSCULAR HGB CONC 32.9 G/DL (33.0-37.0); MEAN CORPUSCULAR VOLUME 80.4 FL (81.0-99.0); MEAN PLATELET VOLUME 10.5 FL (7.4-10.4); PLATELET COUNT 238 /CUMM (130-400); RBC DISTRIBUTION WIDTH 17.3 % (11.5-14.5); RED BLOOD CELL CT 3.79 /CUMM (4.20-5.40); WHITE BLOOD CELL COUNT 9.1 /CUMM (4.8-10.8)
--- NOTE | 2017-12-23 10:08 | PN- Housestaff ---
See Addendum Subjective Follow-up For: MS exacerbation Subjective: Patient seen and examined. Reported diarrhea and diffuse joint pain. Especially in the back. Continues to complain of left lower extremity weakness and is unable to ambulate. States feeling better than yesterday Review of Systems Constitutional: Reports: see HPI. Objective Last 24 Hrs of Vital Signs/I&O Vital Signs Date Time Temp Pulse Resp B/P B/P Pulse O2 O2 Flow FiO2 Mean Ox Delivery Rate 12/23 1448 98.9 102 20 118/72 98 12/23 0917 80 128/80 12/23 0659 98.1 78 18 134/82 99 Room Air 12/23 0000 98 Room Air 12/22 2231 98.7 90 20 110/80 98 Intake & Output 12/23 1600 12/23 0800 12/23 0000 Intake Total 400 1600 Output Total 450 Balance -50 1600 Intake, IV 0 800 Intake, Oral 400 800 Number 0 Bowel Movements Output, Urine 450 Physical Exam General Appearance: Alert, Oriented X3, Cooperative Other Physical Findings: Skin: R chest cath port Cardiovascular: Regular Rate, Normal S1, Normal S2 Lungs: Clear to Auscultation, Normal Air Movement Abdomen: Normal Bowel Sounds, Soft, No Tenderness Extremities: Able to raise RLE against gravity. Unable to raise LLE due to decreased motor Current Medications: Current Medications Sig/Angélica Start time Last Medication Dose Route Stop Time Status Admin Acetaminophen/ 1 TAB Q4P PRN 12/22 1045 AC 12/23 Butalbital/Caffeine PO 1116 Al Hydroxide/Mg 30 ML Q4-6 PRN PRN 12/23 0415 AC Hydroxide PO Apixaban 2.5 MG BID 12/22 1000 AC 12/23 PO 0920 Bupropion HCl 150 MG DAILY 12/22 1000 AC 12/23 PO 0917 Cholecalciferol 2,000 IU DAILY 12/22 1000 AC 12/23 PO 0920 Cosyntropin 0.25 MG ONCE ONE 12/23 0800 DC 12/23 IV 12/23 0801 0856 Dexamethasone 1 MG DAILY 12/22 1845 AC 12/23 PO 0925 Fluconazole 200 MG DAILY 12/23 1000 AC 12/23 PO 0919 Fluconazole 400 MG ONCE ONE 12/22 1515 DC 04 PO 12/22 1516 1905 Hydrocortisone 15 MG DAILY 12/24 1000 AC PO Hydrocortisone 5 MG 1600 12/23 1600 AC PO Hydrocortisone 100 MG ONCE ONE 12/22 1630 CAN PO 12/22 1631 Lidocaine 15 ML BID 12/22 1514 AC 12/22 PO 2155 Lidocaine 1 PAT DAILY PRN 12/22 0315 AC 12/23 EXT 0608 Morphine Sulfate 1 MG Q4 HRS NEEDED PRN 12/22 1045 AC 12/23 IV 0607 Morphine Sulfate 4 MG Q6P PRN 12/22 0230 AC 12/23 IV 1131 Nystatin 5 ML 4 TIMES/DAY 12/22 1035 DC 12/22 PO 1251 Omeprazole 40 MG DAILY AC 12/22 0700 AC 12/23 PO 0608 Oxybutynin Chloride 10 MG BID 12/22 1000 AC 12/23 PO 0918 Sodium Chloride 1,000 ML Q10H 12/22 0230 DC 12/22 IV 12/22 2229 1250 Tizanidine HCl 4 MG BID PRN 12/22 0415 AC PO Topiramate 50 MG DAILY 12/22 1000 AC 12/23 PO 0917 Tramadol HCl 100 MG TID 12/22 1000 AC 12/23 PO 1457 Verapamil HCl 180 MG DAILY 12/22 1000 AC 12/23 PO 0917 Last 24 Hrs of Lab/Dani Results Last 24 Hrs of Labs/Mics: Laboratory Tests 12/23/17 1010: Cortisol AM Sample 17.8 12/23/17 0900: Cortisol AM Sample Cancelled 12/23/17 0625: Anion Gap 9, Estimated GFR > 60, BUN/Creatinine Ratio 11.3, Cortisol AM Sample 1.8 L 12/23/17 0625: Aldosterone Pending, CBC w Diff NO MAN DIFF REQ, RBC 3.79 L, MCV 80.4 L, MCH 26.4 L, MCHC 32.9 L, RDW 17.3 H, MPV 10.5 H, Gran % 84.7 H, Lymphocytes % 9.5 L, Monocytes % 4.1, Eosinophils % 1.6, Basophils % 0.1, Absolute Granulocytes 7.7 H, Absolute Lymphocytes 0.9 L, Absolute Monocytes 0.4, Absolute Eosinophils 0.1, Absolute Basophils 0 Assessment/Plan Assessment: Ms. Smith is a 27-year-old female with a PMH significant for progressive MS, DVT/PE, migraines, hypertension, muscle spasms, GERD, urinary incontinence who was recently treated outpatient for MS exacerbation from with IV steroids injections, who presents LLE weakness and diffused joint pain. At baseline patient walks with a walker. She has a cath port for plasmapheresis Problem list: -MS exacerbation -Low cortisol / high-dose steroids Plan: -Nystatin suspension for esophageal discomfort for possible Candidiasis -Start Fioricet for migraines -Adequate analgesia -Random cortisol was low likely secondary to suppression of posterior cruciate adrenal access due to high dose of steroids. -Cortrosyn stimulation test was done, poststimulation cortisol level is 17.8 at this point I believe he should hold the hydrocortisone supplementation. Neurology recommendations-Dr. Tillman appreciated Endo recommendations appreciated Diet: Heart healthy DVT ppx: Code: Full Problem List: 1. MULTIPLE SCLEROSIS Pain Ratin Pain Location: diffuse Pain Goal: Pain 4 or less Pain Plan: prn Tomorrow's Labs & Rationales: am cortisol
--- NOTE | 2017-12-23 10:10 | PN- Endocrinology ---
Assessment/Plan Endoscopy Assessment: The patient feels a little better this morning. She still has some back pain however. Her potassium has been repleted. She did receive 1 ampule of cortrosyn at 9 AM and we plan to draw a cortisol at 10 AM to further check her adrenal function. The patient did receive dexamethasone 1 mg last night and has been hydrated. Her blood pressure seems improved. Plan: Suggest await the results of the Cortrosyn stimulation test. If the poststimulation cortisol is above 18 that would be considered a normal test. If it is not we could begin hydrocortisone 15 mg in the a.m. and 5 mg at 4 PM. Subjective Subjective: Still has back pain Review of Systems Constitutional: Denies: chills, fever. Cardiovascular: Denies: chest pain. Respiratory: Denies: cough, short of breath. Musculoskeletal: Reports: back pain. Objective Last 24 Hrs of Vital Signs/I&O Vital Signs Date Time Temp Pulse Resp B/P B/P Pulse O2 O2 Flow FiO2 Mean Ox Delivery Rate 12/23 916 80 128/80 12/23 0559 98.1 78 18 134/82 99 Room Air 12/23 0000 98 Room Air 12/22 2231 98.7 90 20 110/80 98 / 1435 98.9 107 18 110/72 91 Room Air Intake & Output 12/23 1600 12/23 0000 Intake Total 400 1600 Output Total 450 Balance -50 1600 Intake, IV 0 800 Intake, Oral 400 800 Number 0 Bowel Movements Output, Urine 450 Vital Signs Date Time Temp Pulse Resp B/P B/P Pulse O2 O2 Flow FiO2 Mean Ox Delivery Rate 12/23 916 80 128/80 12/23 0559 98.1 78 18 134/82 99 Room Air 04 0000 98 Room Air 12/22 2231 98.7 90 20 110/80 98 04/06 1435 98.9 107 18 110/72 91 Room Air Intake & Output 12/23 1600 12/23 0800 04 0000 Intake Total 400 1600 Output Total 450 Balance -50 1600 Intake, IV 0 800 Intake, Oral 400 800 Number 0 Bowel Movements Output, Urine 450 Physical Exam General Appearance: alert, awake, anxious Head: normal appearance Neck: normal inspection Cardiovascular: regular rate/rhythm Abdomen: normal bowel sounds Extremities: normal inspection Current Medications: Current Medications Sig/Angélica Start time Last Medication Dose Route Stop Time Status Admin Acetaminophen/ 1 TAB Q4P PRN 12/22 1045 AC 12/23 Butalbital/Caffeine PO 0149 Al Hydroxide/Mg 30 ML Q4-6 PRN PRN 12/23 0415 AC Hydroxide PO Apixaban 2.5 MG BID 12/22 1000 AC 12/23 PO 0920 Bupropion HCl 150 MG DAILY 12/22 1000 AC 12/23 PO 0917 Cholecalciferol 2,000 IU DAILY 12/22 1000 AC 12/23 PO 0920 Cosyntropin 0.25 MG ONCE ONE 12/23 0800 DC 12/23 IV 12/23 0801 0856 Dexamethasone 1 MG DAILY 12/22 1845 AC 12/23 PO 0925 Fluconazole 200 MG DAILY 12/23 1000 AC 12/23 PO 0919 Fluconazole 400 MG ONCE ONE 12/22 1515 DC 12/22 PO 12/22 1516 1905 Hydrocortisone 100 MG ONCE ONE 12/22 1630 CAN PO 12/22 1631 Lidocaine 15 ML BID 12/22 1514 AC 12/22 PO 2155 Lidocaine 1 PAT DAILY PRN 12/22 0315 AC 12/23 EXT 0608 Morphine Sulfate 1 MG Q4 HRS NEEDED PRN 12/22 1045 AC 12/23 IV 0607 Morphine Sulfate 4 MG Q6P PRN 12/22 0230 AC 12/23 IV 0150 Nystatin 5 ML 4 TIMES/DAY 12/22 1035 DC 12/22 PO 1251 Omeprazole 40 MG DAILY AC 12/22 0700 AC 12/23 PO 0608 Oxybutynin Chloride 10 MG BID 12/22 1000 AC 12/23 PO 0918 Patient Medication 1 ED ONE ONE 12/22 1330 DC 12/23 Teaching ED 12/22 1331 0150 Sodium Chloride 1,000 ML Q10H 12/22 0230 DC 04 IV 12/22 2229 1250 Tizanidine HCl 4 MG BID PRN 12/22 0415 AC PO Topiramate 50 MG DAILY 12/22 1000 AC 12/23 PO 0917 Tramadol HCl 100 MG TID 12/22 1000 AC 12/23 PO 0911 Verapamil HCl 180 MG DAILY 12/22 1000 AC 12/23 PO 0917 Results Pertinent Lab/Dani Results: Laboratory Tests 12/23 12/23 12/23 0900 0625 0625 Chemistry Sodium (137 - 145 mmol/L) 140 Potassium (3.5 - 5.1 mmol/L) 3.8 Chloride (98 - 107 mmol/L) 109 H Carbon Dioxide (22 - 30 mmol/L) 22 Anion Gap (5 - 16) 9 BUN (7 - 17 mg/dL) 9 Creatinine (0.5 - 1.0 mg/dL) 0.8 Estimated GFR (>60 ml/min) > 60 BUN/Creatinine Ratio (7 - 25 %) 11.3 Aldosterone Pending Cortisol AM Sample (4.46 - 22.7 ug/dL) Cancelled 1.8 L Hematology CBC w Diff Pending WBC Pending RBC Pending Hgb Pending Hct Pending MCV Pending MCH Pending MCHC Pending RDW Pending Plt Count Pending MPV Pending 12/22 12/22 12/22 0655 0632 0600 Chemistry Sodium (137 - 145 mmol/L) 144 Potassium (3.5 - 5.1 mmol/L) 3.2 L Chloride (98 - 107 mmol/L) 113 H Carbon Dioxide (22 - 30 mmol/L) 21 L Anion Gap (5 - 16) 9 BUN (7 - 17 mg/dL) 12 Creatinine (0.5 - 1.0 mg/dL) 0.9 Estimated GFR (>60 ml/min) > 60 BUN/Creatinine Ratio (7 - 25 %) 13.3 TSH (0.270 - 4.200 uIU/mL) 1.500 Thyroxine (T4) (4.5 - 10.9 ug/dL) 8.8 Total Beta HCG (NEGATIVE) NEGATIVE Cancelled Cortisol AM Sample (4.46 - 22.7 ug/dL) 2.8 L Hematology CBC w Diff NO MAN DIFF REQ WBC (4.8 - 10.8 /CUMM) 8.5 RBC (4.20 - 5.40 /CUMM) 3.69 L Hgb (12.0 - 16.0 G/DL) 9.9 L Hct (37 - 47 %) 29.6 L MCV (81.0 - 99.0 FL) 80.2 L MCH (27.0 - 31.0 PG) 26.7 L MCHC (33.0 - 37.0 G/DL) 33.3 RDW (11.5 - 14.5 %) 17.0 H Plt Count (130 - 400 /CUMM) 222 MPV (7.4 - 10.4 FL) 10.2 Gran % (42.2 - 75.2 %) 72.7 Lymphocytes % (20.5 - 51.1 %) 18.6 L Monocytes % (1.7 - 9.3 %) 7.5 Eosinophils % (0 - 5 %) 1.0 Basophils % (0.0 - 2.0 %) 0.2 Absolute Granulocytes (1.4 - 6.5 /CUMM) 6.2 Absolute Lymphocytes (1.2 - 3.4 /CUMM) 1.6 Absolute Monocytes (0.10 - 0.60 /CUMM) 0.6 Absolute Eosinophils (0.0 - 0.7 /CUMM) 0.1 Absolute Basophils (0.0 - 0.2 /CUMM) 0 Urines Urine Test NEGATIVE 12/21 Chemistry Sodium (137 - 145 mmol/L) 143 Potassium (3.5 - 5.1 mmol/L) 3.0 L Chloride (98 - 107 mmol/L) 110 H Carbon Dioxide (22 - 30 mmol/L) 20 L Anion Gap (5 - 16) 13 BUN (7 - 17 mg/dL) 15 Creatinine (0.5 - 1.0 mg/dL) 1.0 Estimated GFR (>60 ml/min) > 60 BUN/Creatinine Ratio (7 - 25 %) 15.0 Glucose (65 - 99 mg/dL) 77 Calcium (8.4 - 10.2 mg/dL) 9.1 Total Bilirubin (0.2 - 1.3 mg/dL) 0.6 AST (14 - 36 U/L) 6 L ALT (9 - 52 U/L) 30 Alkaline Phosphatase (<127 U/L) 37 Total Protein (6.3 - 8.2 g/dL) 6.3 Albumin (3.5 - 5.0 g/dL) 3.4 L Globulin (1.9 - 4.2 gm/dL) 2.9 Albumin/Globulin Ratio (1.1 - 2.2 %) 1.2 Hematology CBC w Diff NO MAN DIFF REQ WBC (4.8 - 10.8 /CUMM) 8.6 RBC (4.20 - 5.40 /CUMM) 4.20 Hgb (12.0 - 16.0 G/DL) 10.9 L Hct (37 - 47 %) 33.9 L MCV (81.0 - 99.0 FL) 80.6 L MCH (27.0 - 31.0 PG) 25.9 L MCHC (33.0 - 37.0 G/DL) 32.2 L RDW (11.5 - 14.5 %) 16.7 H Plt Count (130 - 400 /CUMM) 255 MPV (7.4 - 10.4 FL) 9.6 Gran % (42.2 - 75.2 %) 78.1 H Lymphocytes % (20.5 - 51.1 %) 18.0 L Monocytes % (1.7 - 9.3 %) 3.1 Eosinophils % (0 - 5 %) 0.7 Basophils % (0.0 - 2.0 %) 0.1 Absolute Granulocytes (1.4 - 6.5 /CUMM) 6.7 H Absolute Lymphocytes (1.2 - 3.4 /CUMM) 1.5 Absolute Monocytes (0.10 - 0.60 /CUMM) 0.3 Absolute Eosinophils (0.0 - 0.7 /CUMM) 0.1 Absolute Basophils (0.0 - 0.2 /CUMM) 0 Urines Urine Color (YEL,AMB,STR) YEL Urine Clarity (CLEAR) CLEAR Urine pH (5.0 - 8.0) 6.0 Ur Specific Moore (1.001 - 1.035) 1.020 Urine Protein (NEG,<30 MG/DL) NEG Urine Ketones (NEG) NEG Urine Nitrite (NEG) NEG Urine Bilirubin (NEG) NEG Urine Urobilinogen (0.1 - 1.0 EU/dl) 1.0 Ur Leukocyte Esterase (NEG) NEG Ur Microscopic EXAM NOT REQUIRED Urine Hemoglobin (NEG) NEG Urine Glucose (N MG/DL) NEG
[2017-12-23 14:48] VITALS: BP 118/72
[2017-12-23 22:11] VITALS: BP 120/80
[2017-12-24 06:33] VITALS: BP 120/80
[2017-12-24 08:26] LABS: ABSOLUTE BASOPHIL COUNT 0 /CUMM (0.0-0.2); ABSOLUTE EOSINOPHIL COUNT 0.1 /CUMM (0.0-0.7); ABSOLUTE GRANULOCYTE CT 8.4 /CUMM (1.4-6.5); ABSOLUTE LYMPH COUNT 1.2 /CUMM (1.2-3.4); ABSOLUTE MONOCYTE COUNT 0.6 /CUMM (0.10-0.60); BASOPHIL % 0.1 % (0.0-2.0); EOSINOPHIL % 0.8 % (0-5); GRANULOCYTE % 82.1 % (42.2-75.2); MEAN CORPUSCULAR HGB 26.6 PG (27.0-31.0); MEAN CORPUSCULAR HGB CONC 32.8 G/DL (33.0-37.0); MEAN CORPUSCULAR VOLUME 81.1 FL (81.0-99.0); MEAN PLATELET VOLUME 10.8 FL (7.4-10.4); PLATELET COUNT 240 /CUMM (130-400); RBC DISTRIBUTION WIDTH 17.3 % (11.5-14.5); WHITE BLOOD CELL COUNT 10.3 /CUMM (4.8-10.8)
--- NOTE | 2017-12-24 08:31 | PN- Housestaff ---
See Addendum Subjective Follow-up For: MS exacerbation Subjective: Patient seen and examined. Sitting in chair having breakfast. Reports of having extreme pain in the back and migraine requesting a lidocaine patch. Review of Systems Constitutional: Reports: see HPI. Objective Last 24 Hrs of Vital Signs/I&O Vital Signs Date Time Temp Pulse Resp B/P B/P Pulse O2 O2 Flow FiO2 Mean Ox Delivery Rate 12/25 919 104 116/70 12/24 0633 98.2 78 16 120/80 97 12/23 2211 100.4 71 20 120/80 98 Room Air 12/23 1448 98.9 102 20 118/72 98 Intake & Output 12/24 1600 12/24 0800 12/24 0000 Intake Total 300 300 Output Total 400 200 Balance -100 100 Intake, Oral 300 300 Output, Urine 400 200 Physical Exam General Appearance: Alert, Oriented X3, Cooperative Cardiovascular: Normal S1, Normal S2 Lungs: Clear to Auscultation Abdomen: Soft Neurological: Normal Speech Current Medications: Current Medications Sig/Angélica Start time Last Medication Dose Route Stop Time Status Admin Acetaminophen/ 1 TAB Q4P PRN 12/22 1045 AC 12/23 Butalbital/Caffeine PO 1116 Al Hydroxide/Mg 30 ML Q4-6 PRN PRN 12/23 0415 AC Hydroxide PO Apixaban 2.5 MG BID 12/22 1000 AC 12/24 PO 0923 Bupropion HCl 150 MG DAILY 12/22 1000 AC 12/24 PO 0924 Cholecalciferol 2,000 IU DAILY 12/22 1000 AC 12/24 PO 0924 Dexamethasone 1 MG DAILY 12/22 1845 AC 12/24 PO 0922 Fluconazole 200 MG DAILY 12/23 1000 AC 12/24 PO 0923 Hydrocortisone 15 MG DAILY 12/24 1000 CAN PO Hydrocortisone 5 MG 1600 12/23 1600 DC PO Lidocaine 15 ML BID 12/22 1514 AC 12/24 PO 0924 Lidocaine 1 PAT DAILY PRN 12/22 0315 AC 12/24 EXT 0929 Morphine Sulfate 1 MG Q4 HRS NEEDED PRN 12/22 1045 AC 12/23 IV 0607 Morphine Sulfate 4 MG Q6P PRN 12/22 0230 AC 12/24 IV 0545 Omeprazole 40 MG DAILY AC 12/22 0700 AC 12/24 PO 0528 Oxybutynin Chloride 10 MG BID 12/22 1000 AC 12/24 PO 0923 Tizanidine HCl 4 MG BID PRN 12/22 0415 AC PO Topiramate 50 MG DAILY 12/22 1000 AC 12/24 PO 09 Tramadol HCl 100 MG TID 12/22 1000 AC 12/24 PO 0925 Verapamil HCl 180 MG DAILY 12/22 999 AC 12/24 PO 0920 Last 24 Hrs of Lab/Dani Results Last 24 Hrs of Labs/Mics: Laboratory Tests 12/24/17 0550: Anion Gap 13, Estimated GFR > 60, BUN/Creatinine Ratio 12.5, Cortisol AM Sample 1.6 L, CBC w Diff NO MAN DIFF REQ, RBC 3.70 L, MCV 81.1, MCH 26.6 L, MCHC 32.8 L, RDW 17.3 H, MPV 10.8 H, Gran % 82.1 H, Lymphocytes % 11.4 L, Monocytes % 5.6, Eosinophils % 0.8, Basophils % 0.1, Absolute Granulocytes 8.4 H, Absolute Lymphocytes 1.2, Absolute Monocytes 0.6, Absolute Eosinophils 0.1, Absolute Basophils 0 12/23/17 1010: Cortisol AM Sample 17.8 Assessment/Plan Assessment: Ms. Smith is a 27-year-old female with a PMH significant for progressive MS, DVT/PE, migraines, hypertension, muscle spasms, GERD, urinary incontinence who was recently treated outpatient for MS exacerbation from with IV steroids injections, who presents LLE weakness and diffused joint pain. At baseline patient walks with a walker. She has a cath port for plasmapheresis Problem list: -MS exacerbation -Low cortisol 10/20 high-dose steroids Plan: -Nystatin suspension for esophageal discomfort for possible Candidiasis -Fioricet for migraines -Adequate analgesia -Random cortisol was low likely secondary to suppression of pituatary axis due to high dose of steroids. -Cortrosyn stimulation test was done, poststimulation cortisol level is 17.8 we held the hydrocortisone supplementation. -A.m. cortisol is 1.6 patient received dexamethasone 1 mg yesterday and today morning, discussed with Dr. Felix we are going to discontinue all steroids and repeat AM cortisol tomorrow and the day after , expect cortisol level to low tomorrow as well. should be ok on monday am -Neurology recommendations-Dr. Tillman appreciated -Endo recommendations appreciated -All labs are stable, with only order Cortisol level for tomorrow Diet: Heart healthy/DVT ppx:/Code: Full Problem List: 1. MULTIPLE SCLEROSIS Pain Ratin Pain Location: back Pain Goal: Pain 4 or less Pain Plan: prn Tomorrow's Labs & Rationales: cbc
--- NOTE | 2017-12-24 10:09 | PN- Endocrinology ---
Assessment/Plan Endoscopy Assessment: The patient still has pain all over. She feels very tired. Her cortisol level was only 1.6 this morning. However it turns out that she did get a dose of dexamethasone yesterday morning and also this morning. Thus this is a suppressed cortisol due to exogenous steroid therapy. Plan: Suggest stop dexamethasone. Keep the patient off all steroid therapy for now. We will check her cortisol level tomorrow but it we expect that the be suppressed due to the dexamethasone she had today which lasted at least 24 hours. I would repeat her cortisol in the a.m. on a daily basis. By Monday is should be in the normal range. Subjective Subjective: Has pain all over and feels tired Review of Systems Constitutional: Denies: chills, fever. Cardiovascular: Denies: chest pain. Respiratory: Denies: cough, short of breath. Gastrointestinal: Denies: abdominal pain, nausea, vomiting. Objective Last 24 Hrs of Vital Signs/I&O Vital Signs Date Time Temp Pulse Resp B/P B/P Pulse O2 O2 Flow FiO2 Mean Ox Delivery Rate 12/25 919 104 /12/2433 98.2 78 16 120/80 97 12/23 2211 100.4 71 20 120/80 98 Room Air 12/23 1448 98.9 102 20 118/72 98 Intake & Output 12/24 1600 12/24 0000 Intake Total 300 300 Output Total 400 200 Balance -100 100 Intake, Oral 300 300 Output, Urine 400 200 Vital Signs Date Time Temp Pulse Resp B/P B/P Pulse O2 O2 Flow FiO2 Mean Ox Delivery Rate 12/25 919 104 116/70 12/24 0533 98.2 78 16 120/80 97 12/23 2211 100.4 71 20 120/80 98 Room Air 12/23 1448 98.9 102 20 118/72 98 Intake & Output 12/24 1600 12/24 0000 Intake Total 300 300 Output Total 400 200 Balance -100 100 Intake, Oral 300 300 Output, Urine 400 200 Physical Exam General Appearance: alert, awake, anxious Head: normal appearance Neck: normal inspection Respiratory: normal breath sounds Cardiovascular: regular rate/rhythm Abdomen: normal bowel sounds Current Medications: Current Medications Sig/Angélica Start time Last Medication Dose Route Stop Time Status Admin Acetaminophen/ 1 TAB Q4P PRN 12/22 1045 AC 12/23 Butalbital/Caffeine PO 1116 Al Hydroxide/Mg 30 ML Q4-6 PRN PRN 12/23 0415 AC Hydroxide PO Apixaban 2.5 MG BID 12/22 1000 AC 12/24 PO 0923 Bupropion HCl 150 MG DAILY 12/22 1000 AC 12/24 PO 0924 Cholecalciferol 2,000 IU DAILY 12/22 1000 AC 12/24 PO 0924 Dexamethasone 1 MG DAILY 12/22 1845 DC 12/24 PO 0922 Fluconazole 200 MG DAILY 12/23 1000 AC 12/24 PO 0923 Hydrocortisone 15 MG DAILY 12/24 1000 CAN PO Hydrocortisone 5 MG 1600 12/23 1600 DC PO Lidocaine 15 ML BID 12/22 1514 AC 12/24 PO 0924 Lidocaine 1 PAT DAILY PRN 12/22 0315 AC 12/24 EXT 0929 Morphine Sulfate 1 MG Q4 HRS NEEDED PRN 12/22 1045 AC 12/23 IV 0607 Morphine Sulfate 4 MG Q6P PRN 12/22 0230 AC 12/24 IV 0545 Omeprazole 40 MG DAILY AC 12/22 0700 AC 12/24 PO 0528 Oxybutynin Chloride 10 MG BID 12/22 1000 AC 12/24 PO 0923 Tizanidine HCl 4 MG BID PRN 12/22 0415 AC PO Topiramate 50 MG DAILY 12/22 1000 AC 12/24 PO 0923 Tramadol HCl 100 MG TID 12/22 1000 AC 12/24 PO 0925 Verapamil HCl 180 MG DAILY 12/22 1000 AC 12/24 PO 0920 Results Pertinent Lab/Dani Results: Laboratory Tests 12/24 12/23 04 0550 1010 0900 Chemistry Sodium (137 - 145 mmol/L) 141 Potassium (3.5 - 5.1 mmol/L) 3.9 Chloride (98 - 107 mmol/L) 107 Carbon Dioxide (22 - 30 mmol/L) 21 L Anion Gap (5 - 16) 13 BUN (7 - 17 mg/dL) 10 Creatinine (0.5 - 1.0 mg/dL) 0.8 Estimated GFR (>60 ml/min) > 60 BUN/Creatinine Ratio (7 - 25 %) 12.5 Cortisol AM Sample (4.46 - 22.7 ug/dL) 1.6 L 17.8 Cancelled Hematology CBC w Diff NO MAN DIFF REQ WBC (4.8 - 10.8 /CUMM) 10.3 RBC (4.20 - 5.40 /CUMM) 3.70 L Hgb (12.0 - 16.0 G/DL) 9.8 L Hct (37 - 47 %) 30.0 L MCV (81.0 - 99.0 FL) 81.1 MCH (27.0 - 31.0 PG) 26.6 L MCHC (33.0 - 37.0 G/DL) 32.8 L RDW (11.5 - 14.5 %) 17.3 H Plt Count (130 - 400 /CUMM) 240 MPV (7.4 - 10.4 FL) 10.8 H Gran % (42.2 - 75.2 %) 82.1 H Lymphocytes % (20.5 - 51.1 %) 11.4 L Monocytes % (1.7 - 9.3 %) 5.6 Eosinophils % (0 - 5 %) 0.8 Basophils % (0.0 - 2.0 %) 0.1 Absolute Granulocytes (1.4 - 6.5 /CUMM) 8.4 H Absolute Lymphocytes (1.2 - 3.4 /CUMM) 1.2 Absolute Monocytes (0.10 - 0.60 /CUMM) 0.6 Absolute Eosinophils (0.0 - 0.7 /CUMM) 0.1 Absolute Basophils (0.0 - 0.2 /CUMM) 0 /03 21/ 0625 0625 Chemistry Sodium (137 - 145 mmol/L) 140 Potassium (3.5 - 5.1 mmol/L) 3.8 Chloride (98 - 107 mmol/L) 109 H Carbon Dioxide (22 - 30 mmol/L) 22 Anion Gap (5 - 16) 9 BUN (7 - 17 mg/dL) 9 Creatinine (0.5 - 1.0 mg/dL) 0.8 Estimated GFR (>60 ml/min) > 60 BUN/Creatinine Ratio (7 - 25 %) 11.3 Aldosterone Pending Cortisol AM Sample (4.46 - 22.7 ug/dL) 1.8 L Hematology CBC w Diff NO MAN DIFF REQ WBC (4.8 - 10.8 /CUMM) 9.1 RBC (4.20 - 5.40 /CUMM) 3.79 L Hgb (12.0 - 16.0 G/DL) 10.0 L Hct (37 - 47 %) 30.5 L MCV (81.0 - 99.0 FL) 80.4 L MCH (27.0 - 31.0 PG) 26.4 L MCHC (33.0 - 37.0 G/DL) 32.9 L RDW (11.5 - 14.5 %) 17.3 H Plt Count (130 - 400 /CUMM) 238 MPV (7.4 - 10.4 FL) 10.5 H Gran % (42.2 - 75.2 %) 84.7 H Lymphocytes % (20.5 - 51.1 %) 9.5 L Monocytes % (1.7 - 9.3 %) 4.1 Eosinophils % (0 - 5 %) 1.6 Basophils % (0.0 - 2.0 %) 0.1 Absolute Granulocytes (1.4 - 6.5 /CUMM) 7.7 H Absolute Lymphocytes (1.2 - 3.4 /CUMM) 0.9 L Absolute Monocytes (0.10 - 0.60 /CUMM) 0.4 Absolute Eosinophils (0.0 - 0.7 /CUMM) 0.1 Absolute Basophils (0.0 - 0.2 /CUMM) 0
[2017-12-24 13:59] VITALS: BP 122/68
[2017-12-24 22:29] VITALS: BP 112/80
[2017-12-25 05:53] VITALS: BP 110/60
--- NOTE | 2017-12-25 07:17 | PN- Housestaff ---
Viral Valle 12/25/17 0717: Subjective Follow-up For: MS exacerbation Odynophagia Hypocortisolism Subjective: Patient reports energy and pain improving, her odynophagia has resolved and well controlled with current regimen. She still reports persistent shoulder pain. She also reports she worked with PT today and was able to climb stairs Review of Systems Constitutional: Reports: no symptoms, see HPI. Objective Last 24 Hrs of Vital Signs/I&O Vital Signs Date Time Temp Pulse Resp B/P B/P Pulse O2 O2 Flow FiO2 Mean Ox Delivery Rate 12/26 0730 98.0 85 20 110/60 12/25 0553 98.0 85 20 110/60 98 Room Air 12/24 2229 98.8 90 20 112/80 98 Room Air 12/24 1359 98.1 110 20 122/68 98 Intake & Output 12/25 1600 12/25 0800 12/25 0000 Intake Total 280 Output Total 100 Balance 280 -100 Intake, IV 40 Intake, Oral 240 Output, Urine 100 Patient 178 lb Weight Physical Exam General Appearance: Alert, Oriented X3, Cooperative, No Acute Distress Skin: R cath port Cardiovascular: Normal S1, Normal S2, No Murmurs Lungs: Clear to Auscultation, Normal Air Movement Abdomen: Normal Bowel Sounds, Soft, No Tenderness Current Medications: Current Medications Sig/Angélica Start time Last Medication Dose Route Stop Time Status Admin Acetaminophen/ 1 TAB Q4P PRN 12/22 1045 AC 12/25 Butalbital/Caffeine PO 0833 Al Hydroxide/Mg 30 ML Q4-6 PRN PRN 12/23 0415 AC Hydroxide PO Apixaban 2.5 MG BID 12/22 1000 AC 12/25 PO 0831 Bupropion HCl 150 MG DAILY 12/22 1000 AC 12/25 PO 0832 Cholecalciferol 2,000 IU DAILY 12/22 1000 AC 12/25 PO 0832 Fluconazole 200 MG DAILY 12/23 1000 AC 12/25 PO 0831 Lidocaine 15 ML BID 12/22 1514 AC 12/25 PO 0833 Lidocaine 1 PAT DAILY PRN 12/22 0315 AC 12/25 EXT 1056 Morphine Sulfate 1 MG Q4 HRS NEEDED PRN 12/22 1045 DC 12/23 IV 0607 Morphine Sulfate 4 MG Q6P PRN 12/22 0230 DC 12/25 IV 0436 Omeprazole 40 MG DAILY AC 12/22 0700 AC 12/25 PO 0631 Oxybutynin Chloride 10 MG BID 12/22 1000 AC 12/25 PO 0831 Oxycodone HCl 5 MG Q8P PRN 12/25 1045 AC 12/25 PO 1058 Tizanidine HCl 4 MG BID PRN 12/22 0415 AC 12/24 PO 2350 Topiramate 50 MG DAILY 12/22 1000 AC 12/25 PO 0832 Tramadol HCl 100 MG TID 12/22 1000 AC 12/25 PO 0836 Verapamil HCl 180 MG DAILY 12/22 1000 AC 12/25 PO 0830 Last 24 Hrs of Lab/Dani Results Last 24 Hrs of Labs/Mics: Laboratory Tests 12/25/17 0630: Cortisol AM Sample 1.1 L Assessment/Plan Assessment: Ms. Smith is a 27-year-old female with a PMH significant for progressive MS, DVT/PE, migraines, hypertension, muscle spasms, GERD, urinary incontinence who was recently treated outpatient for MS exacerbation from with IV steroids injections, who presents LLE weakness and diffused joint pain. At baseline patient walks with a walker. She has a cath port for plasmapheresis Problem list: MS exacerbation Hypocortisolism Odynophagia Plan: Continu Nystatin suspension for esophageal discomfort for possible Candidiasis Continue Fioricet for migraines Start Oxycodone Discontinue IV Morphine Continue Tramadol Neurology recommendations-Dr. Tillman appreciated Endo recommendations appreciated Keep off steroids as per Endo AM cortisol to recheck if cortisol suppressed due to endogenous steroids or if central adrenal insufficiency Diet: Heart healthy DVT ppx: Code: Full Problem List: 1. Lower extremity weakness 2. Exacerbation of multiple sclerosis 3. Left shoulder pain 4. Migraine Pain Ratin Pain Location: Shoulder Pain Goal: Pain 7 or less Pain Plan: Oxycodone, Tramadol Tomorrow's Labs & Rationales: am cortisol Dino Roberto MD 12/25/17 1429: Attending MD Review Statement Attending Statement Attending Statement: examined this patient, discuss w/resident/PA/YARD JACKER, agreed w/resident/PA/YARD JACKER, reviewed EMR data (avail), discussed with nursing, discussed with case mgmt, amended to note Attending Assessment/Plan: Patient seen and examined. Resting comfortably. She reports improvement in her strength. She is ambulating with the physical therapy service. She continues to complain of diffuse body pain. She reports some improvement with use of tramadol. She has been requiring morphine on and off for breakthrough pain. Recommend addition of oxycodone for breakthrough pain. We will follow-up cortisol level tomorrow as recommended by the endocrinology service and anticipate discharging patient after evaluating the results.No need to repeat her laboratory data tomorrow other than cortisol level
--- NOTE | 2017-12-25 08:12 | PN- Endocrinology ---
Assessment/Plan Endoscopy Assessment: The patient feels better this morning. She states she does have a headache however. Her pain in her back and in the rest of her body seems to be less. She is presently off all steroids. Plan: Suggest continue to keep off all steroids. We should check her a.m. cortisol on a daily basis. Tomorrow will be the first time that we can get an accurate assessment of what her cortisol level is in the morning without interference from exogenous steroids. Objective Last 24 Hrs of Vital Signs/I&O Vital Signs Date Time Temp Pulse Resp B/P B/P Pulse O2 O2 Flow FiO2 Mean Ox Delivery Rate 12/25 0453 98.0 85 20 110/60 98 Room Air 12/24 2228 98.8 90 20 112/80 98 Room Air 12/24 1359 98.1 110 20 122/68 98 12/24 0920 104 116/70 Intake & Output 12/25 1600 12/25 0000 Intake Total 280 Output Total 100 Balance 280 -100 Intake, IV 40 Intake, Oral 240 Output, Urine 100 Vital Signs Date Time Temp Pulse Resp B/P B/P Pulse O2 O2 Flow FiO2 Mean Ox Delivery Rate 12/25 0453 98.0 85 20 110/60 98 Room Air 12/249 98.8 90 20 112/80 98 Room Air 12/24 1359 98.1 110 20 122/68 98 12/24 0920 104 116/70 Intake & Output 12/25 1600 12/25 0000 Intake Total 280 Output Total 100 Balance 280 -100 Intake, IV 40 Intake, Oral 240 Output, Urine 100 Physical Exam General Appearance: alert, awake, comfortable Head: normal appearance Neck: normal inspection Respiratory: normal breath sounds Abdomen: normal bowel sounds Current Medications: Current Medications Sig/Angélica Start time Last Medication Dose Route Stop Time Status Admin Acetaminophen/ 1 TAB Q4P PRN 12/22 1045 AC 12/24 Butalbital/Caffeine PO 220 Al Hydroxide/Mg 30 ML Q4-6 PRN PRN 12/23 0415 AC Hydroxide PO Apixaban 2.5 MG BID 12/22 1000 AC 12/24 PO 220 Bupropion HCl 150 MG DAILY 12/22 1000 AC 12/24 PO 923 Cholecalciferol 2,000 IU DAILY 12/22 1000 AC 12/24 PO 923 Dexamethasone 1 MG DAILY 12/22 1845 DC 12/24 PO 0922 Fluconazole 200 MG DAILY 12/23 1000 AC 12/24 PO 0923 Lidocaine 15 ML BID 12/22 1514 AC 12/24 PO 2205 Lidocaine 1 PAT DAILY PRN 12/22 0315 AC 12/24 EXT 0929 Morphine Sulfate 1 MG Q4 HRS NEEDED PRN 12/22 1045 AC 12/23 IV 0607 Morphine Sulfate 4 MG Q6P PRN 12/22 0230 AC 12/25 IV 0436 Omeprazole 40 MG DAILY AC 12/22 0700 AC 12/25 PO 0631 Oxybutynin Chloride 10 MG BID 12/22 1000 AC 12/24 PO 2206 Tizanidine HCl 4 MG BID PRN 12/22 0415 AC 12/24 PO 2350 Topiramate 50 MG DAILY 12/22 1000 AC 12/24 PO 0923 Tramadol HCl 100 MG TID 12/22 1000 AC 12/24 PO 2204 Verapamil HCl 180 MG DAILY 12/22 1000 AC 12/24 PO 0920 Results Pertinent Lab/Dani Results: Laboratory Tests 12/25/17 0630: Cortisol AM Sample Pending
[2017-12-25 14:56] VITALS: BP 118/68
[2017-12-25 22:31] VITALS: BP 100/60
[2017-12-26 06:38] VITALS: BP 118/62
--- NOTE | 2017-12-26 07:01 | PN- Housestaff ---
Tamanna Betancourt MD,[facility] 12/26/17 0701: Subjective Follow-up For: MS exacerbation Rule out adrenal insufficiency Subjective: Patient visited today, was lying in bed comfortably in no acute distress, was alert and oriented. reported improve overall weakness, improve odynophagia No fever or chills, no shortness of breathing, no chest pain, no other events. Had conversation with Dr Villafana regarding continuation of fluconazole. reviewed case with attending and decided to complete a 7 day course of fluconazole. Review of Systems Constitutional: Reports: see HPI. Objective Last 24 Hrs of Vital Signs/I&O Vital Signs Date Time Temp Pulse Resp B/P B/P Pulse O2 O2 Flow FiO2 Mean Ox Delivery Rate 12/27 0648 98.0 99 20 110/76 97 Room Air 12/26 2147 98.0 102 20 110/80 97 Room Air 12/26 1455 98.0 102 20 110/68 99 Room Air 12/26 1054 98.2 86 18 118/62 Intake & Output 12/27 0800 12/27 0000 12/26 1600 Intake Total 320 Output Total 200 500 Balance -200 320 -500 Intake, IV 40 Intake, Oral 280 Output, Urine 200 500 Physical Exam General Appearance: Alert, Oriented X3, Cooperative, No Acute Distress Skin Temp/Moisture Exam: Warm/Dry Sepsis Skin Exam (color): Normal for Ethnicity HEENT: Atraumatic, EOMI, Mucous Membr. moist/pink Cardiovascular: Regular Rate, Normal S1, Normal S2 Lungs: Clear to Auscultation Abdomen: Soft, No Tenderness Neurological: grossly no change compared to yesterday Extremities: No Edema Current Medications: Current Medications Sig/Angélica Start time Last Medication Dose Route Stop Time Status Admin Acetaminophen/ 1 TAB Q4P PRN 12/22 1045 AC 12/26 Butalbital/Caffeine PO 2133 Al Hydroxide/Mg 30 ML Q4-6 PRN PRN 12/23 0415 AC Hydroxide PO Apixaban 2.5 MG BID 12/22 1000 AC 12/26 PO 2133 Bupropion HCl 150 MG DAILY 12/22 1000 AC 12/26 PO 1052 Cholecalciferol 2,000 IU DAILY 12/22 1000 AC 12/26 PO 1051 Fluconazole 200 MG DAILY 12/23 1000 AC 12/26 PO 1052 Lidocaine 15 ML BID 12/22 1514 AC 12/26 PO 1053 Lidocaine 1 PAT DAILY PRN 12/22 0315 AC 12/26 EXT 1552 Omeprazole 40 MG DAILY AC 12/22 0700 AC 12/26 PO 0531 Oxybutynin Chloride 10 MG BID 12/22 1000 AC 12/26 PO 2133 Oxycodone HCl 10 MG Q4P PRN 12/26 1009 AC 12/27 PO 0415 Oxycodone HCl 5 MG Q8P PRN 12/25 1045 DC 12/26 PO 0531 Patient Medication 1 ED ONE ONE 12/26 1415 DC Teaching ED 12/26 1416 Tizanidine HCl 4 MG BID PRN 12/22 0415 AC 12/24 PO 2350 Topiramate 50 MG DAILY 12/22 1000 AC 12/26 PO 1052 Tramadol HCl 100 MG TID 12/22 1000 AC 12/26 PO 2134 Verapamil HCl 180 MG DAILY 12/22 1000 AC 12/26 PO 1054 Assessment/Plan Assessment: 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 She has a cath port for plasmapheresis PMH: progressive MS, DVT/PE, migraines, hypertension, muscle spasms, GERD, urinary incontinence who was recently treated outpatient for MS exacerbation from with IV steroids injections, who . Problem list: MS exacerbation r/o Hypocortisolism Odynophagia Plan: Continu fluconazole for possible Candidiasis Continue Fioricet for migraines Continue Oxycodone Continue Tramadol Neurology recommendations-Dr. Tillman Follow Endo recommendations Keep off steroids as per Endo Diet: Heart healthy DVT ppx:ALPS and on Eliquise Code: Full Problem List: 1. MULTIPLE SCLEROSIS Pain Ratin Pain Location: Tramadol, Oxy Pain Goal: Pain 4 or less Pain Plan: Continue current plan pain management referral Tomorrow's Labs & Rationales: none Dino Roberto MD 12/26/17 1616: Attending MD Review Statement Attending Statement Attending MD Statement: examined this patient, discuss w/resident/PA/SHEET ROLLER OPERATOR, agreed w/resident/PA/SHEET ROLLER OPERATOR, reviewed EMR data (avail), discussed with nursing, discussed with case mgmt, amended to note Attending Assessment/Plan: Patient seen and examined. She continues to walk with physical therapy service. Patient feels very uncomfortable being discharged home but she continues to require assistance. She will be discharged to care home facility for short-term rehabilitation. She will continue to work with physical therapy here in the hospital while awaiting the bed. She continues to complain of ongoing pain. Symptoms of weakness requiring assistance to have been aggravated more by her worsening generalized pain. She reports her current regimen of Ultram and oxycodone is suboptimal in controlling her pain adequately. Will increase the dose of her Oxycodone to 10 mg orally every 4 hours for breakthrough pain. We will continue Ultram. If pain is adequately controlled tomorrow and a bed is available she will be discharged to care home facility for short-term rehabilitation.
--- NOTE | 2017-12-26 09:52 | PN- Endocrinology ---
Assessment/Plan Endoscopy Assessment: Patient complains of pain in her back. Her blood pressure has been in a good range. Now that she is no longer on steroids for serum cortisol this morning is 7.5 which is adequate. Plan: Suggest that the patient does not need to be on replacement therapy for her adrenal. Her hypocortisolism was most likely due to exogenous steroids and her pituitary adrenal axis seems to be returning to normal function. Subjective Subjective: Complains of back pain Review of Systems Constitutional: Reports: malaise. Cardiovascular: Denies: chest pain. Respiratory: Denies: cough, short of breath. Gastrointestinal: Denies: abdominal pain. Skin: Reports: no symptoms. Objective Last 24 Hrs of Vital Signs/I&O Vital Signs Date Time Temp Pulse Resp B/P B/P Pulse O2 O2 Flow FiO2 Mean Ox Delivery Rate 12/26 0538 98.2 86 18 118/62 100 12/25 2231 98.0 90 20 100/60 93 12/25 1456 98.8 98 20 118 99 Intake & Output 12/26 1600 12/26 0812/26 0000 Intake Total 400 300 Output Total 100 300 Balance 300 0 Intake, Oral 400 300 Output, Urine 100 300 Vital Signs Date Time Temp Pulse Resp B/P B/P Pulse O2 O2 Flow FiO2 Mean Ox Delivery Rate 12/26 0538 98.2 86 18 118/62 100 12/25 2231 98.0 90 20 100/60 93 12/25 1456 98.8 98 20 118/68 99 Intake & Output 12/26 1600 12/26 0800 12/26 0000 Intake Total 400 300 Output Total 100 300 Balance 300 0 Intake, Oral 400 300 Output, Urine 100 300 Physical Exam General Appearance: alert, awake Neck: normal inspection Cardiovascular: regular rate/rhythm Abdomen: normal bowel sounds, soft Current Medications: Current Medications Sig/Angélica Start time Last Medication Dose Route Stop Time Status Admin Acetaminophen/ 1 TAB Q4P PRN 12/22 1045 AC 12/26 Butalbital/Caffeine PO 0534 Al Hydroxide/Mg 30 ML Q4-6 PRN PRN 12/23 0415 AC Hydroxide PO Apixaban 2.5 MG BID 12/22 1000 AC 12/25 PO 2118 Bupropion HCl 150 MG DAILY 12/22 1000 AC 12/25 PO 0832 Cholecalciferol 2,000 IU DAILY 12/22 1000 AC 12/25 PO 0832 Fluconazole 200 MG DAILY 12/23 1000 AC 12/25 PO 0831 Lidocaine 15 ML BID 12/22 1514 AC 12/25 PO 0833 Lidocaine 1 PAT DAILY PRN 12/22 0315 AC 12/25 EXT 1056 Morphine Sulfate 1 MG Q4 HRS NEEDED PRN 12/22 1045 DC 12/23 IV 0607 Morphine Sulfate 4 MG Q6P PRN 12/22 0230 DC 12/25 IV 0436 Omeprazole 40 MG DAILY AC 12/22 0700 AC 12/26 PO 0531 Oxybutynin Chloride 10 MG BID 12/22 1000 AC 12/25 PO 2121 Oxycodone HCl 5 MG ONCE ONE 12/25 1515 DC 12/25 PO 12/25 1516 1521 Oxycodone HCl 5 MG Q8P PRN 12/25 1045 AC 12/26 PO 0531 Tizanidine HCl 4 MG BID PRN 12/22 0415 AC 12/24 PO 2350 Topiramate 50 MG DAILY 12/22 1000 AC 12/25 PO 0832 Tramadol HCl 100 MG TID 12/22 1000 AC 12/25 PO 2120 Verapamil HCl 180 MG DAILY 12/22 1000 AC 12/25 PO 0830 Results Pertinent Lab/Dani Results: Laboratory Tests 12/26 0539 Chemistry Cortisol AM Sample (4.46 - 22.7 ug/dL) 7.5
[2017-12-26] MEDS ORDERED: DIFLUCAN100 M1 PO (13:12)
[2017-12-26] MEDS ORDERED: OXYCODONE HCL10 M2 PO (13:12)
--- NOTE | 2017-12-26 13:23 | Patient Discharge Instructions ---
Discharge Instructions General Discharge Information You were seen/treated for: Multiple sclerosis Rule out adrenal insufficiency Oropharyngeal thrush Watch for these problems: Severe weakness, shortness of breathing, chest pain, dizziness, nausea vomiting, worsening of any other symptoms Special Instructions: Please follow with your neurologist within 1 week of discharge. Please follow with powder coat painter within 1 week of discharge. Please follow with toll testboard worker within 1-2 weeks of discharge. Diet Continue normal diet: No Recommended Diet: Heart Healthy Activity Full Activity/No Limits: No (as tolerated) Activity Self Limited: Yes Acute Coronary Syndrome Inclusion Criteria At DC or during hospital stay patient has or had the following: ACS DIAGNOSIS No Discharge Core Measures Meds if any: Prescribed or Continued at Discharge Meds if any: NOT Prescribed or Continued at Discharge Congestive Heart Failure Inclusion Criteria At DC or during hospital stay patient has or had the following: CHF DIAGNOSIS No Discharge Core Measures Meds if any: Prescribed or Continued at Discharge Meds if any: NOT Prescribed or Continued at Discharge Cerebrovascular accident Inclusion Criteria At DC or during hospital stay patient has or had the following: CVA/TIA Diagnosis No Discharge Core Measures Meds if any: Prescribed or Continued at Discharge Meds if any: NOT Prescribed or Continued at Discharge Venous thromboembolism Inclusion Criteria VTE Diagnosis No VTE Type NONE VTE Confirmed by (Test) NONE Discharge Core Measures - Per Current guidelines, there needs to be overlap - treatment for the first 5 days of Warfarin therapy. - If discharged on Warfarin prior to 5 days of - overlap therapy, the patient will need to be - assessed for post discharge needs including - *Post discharge parental anticoagulation - *Warfarin and/or parental anticoagulation education - *Follow up date to check INR post discharge At least 5 days overlap therapy as Inpatient No Meds if any: Prescribed or Continued at Discharge Note: Overlap Therapy is Warfarin and Anticoagulant Meds if any: NOT Prescribed or Continued at Discharge
[2017-12-26] MEDS ORDERED: BUTALB-ACETAMI1 EACH PO (13:26)
--- NOTE | 2017-12-26 13:31 | Discharge Summary ---
Visit Information Visit Dates Admission Date: 12/21/17 Discharge Date: 12/30/17 Hospital Course Course Attending Physician: Dino Roberto MD Primary Care Physician: Aldo Chery MD Hospital Course: 27-year-old woman with past medical history of progressive multiple sclerosis, urinary incontinence, DVT/pulmonary embolism on eliquis, GERD, migraines, hypertension and muscle spasm came to [place] ED for evaluation of worsening bilateral shoulder and knee pain and worsening left lower extremity weakness likely secondary to MS exacerbation. Patient was treated with IV steroids 2 days prior to this admission with no improvement in her symptoms. Problem list MS exacerbation Odynophagia Hospital course: Patient was admitted to the general medicine floor for MS exacerbation. She was treated IV steroids a few days prior to admission with a course of which did not result in significant improvement in her symptoms. On the floor, Neuro Checks were conducted frequently. Pain control was achieved through Oxycodone, Lidoderm patches and Fioricet was used for headaches. Patient's physical deconditioning was thought to be secondary to adenoid insufficiency. Therefore Endocrinology was consulted. Patient's cortisol level was suppressed likely secondary to chronic steroid use and being on immunosuppressant. She did not receive any stress dose of steroids but he received 1 mg of dexamethasone as per endocrinology recommendations. Cosyntropin stimulation test was normal and patient mounted an appropiate response to exogenous ACTH. Patient's low cortisol was believed to be secondary to dexamethasone received in the hospital. Patient was kept off steroids for the next few days and the cortisol level came back normal. Patient had pain during swallowing which could have been due to thrush caused by candidiasis She was treated with viscus idocaine,nystatin swish and swallow and fluconazole course which resulted in improvement in her symptoms. Patient worked with physical therapy in the hospital. Her pain was not improved significantly. She was discharged to short-term rehabilitation( [facility]) for physical therapy to regain her strength and get back to baseline. She needs to follow up with Dr. Dr. Layne beltrán regarding the management of her MS. Allergies: Coded Allergies: NO KNOWN ALLERGIES (09/18/15) Disposition Summary Disposition Principal Diagnosis: MS exacerbation Additional Diagnosis: Odynophagia Discharge Disposition: SNF Discharge Instructions General Discharge Information Code Status: Full Code Patient's Diet: regular Patient's Activity: as tolerated Follow-Up Instructions/Appts: Please follow with your neurologist within 1 week of discharge. Please follow with heel painter within 1 week of discharge. Please follow with tractor trailer mechanic within 1-2 weeks of discharge. Patient will complete the course of fluconazole for presumed Camelia esophagitis. If she develops odynophagia n the future she will require endoscopic evaluation. Medications at Discharge Discharge Medications: Stop taking the following medications: Ciprofloxacin/Hydrocortisone (Cipro Hc Otic Suspension) 0.2 %-1 % DROPS.SUSP Both sides of nose As Directed as needed for NASAL CONGESTION Qty = 10 Methylprednisolone Sod Succ (Solu-Medrol) 1,000 MG VIAL INTRAVEN DAILY Qty = 2 Continue taking these medications: Ergocalciferol (Vitamin D2) (Vitamin D2) 50,000 UNIT CAPSULE 1 Capsule ORAL EVERY MONDAY Qty = 4 Comments: Last Taken:12/27/17 Time:10AM Oxybutynin Chloride (Oxybutynin Chloride) 5 MG TABLET 2 Tablet ORAL TWICE DAILY Qty = 360 Comments: Last Taken: 12/30/17 Time: 9:00 am Topiramate (Topiramate) 50 MG TABLET 1 Tablet ORAL DAILY Qty = 90 Comments: Last Taken: 12/30/17 Time: 9:00 am Tramadol HCl (Tramadol HCl) 50 MG TABLET 2 Tablet ORAL THREE TIMES DAILY Qty = 180 Comments: NOT GIVEN IN HOSPITAL Apixaban (Eliquis) 2.5 MG TABLET 1 Tablet ORAL TWICE DAILY Qty = 60 Comments: Last Taken: 12/30/17 Time: 9:00 am Ocrelizumab (Ocrevus) 300 MG/10 ML VIAL 300 Milligram INTRAVEN Q6M Qty = 20 Comments: NOT GIVEN Pantoprazole Sodium (Pantoprazole Sodium) 40 MG TABLET.DR 1 Tablet ORAL DAILY Qty = 90 Comments: Last Taken: 12/30/17 Time: 6:00 am po prilosec given while in hospital Bupropion HCl (Bupropion HCl Sr) 150 MG TABLET.ER 1 Tablet ORAL DAILY Qty = 90 Comments: Last Taken: 12/30/17 Time: 9:00 am Lidocaine (Lidocaine) 5 % ADH..PATCH 1 Patch On the skin As Directed as needed for PAIN Qty = 90 Comments: Last Taken: 12/26/17 Time: 4PM Medroxyprogesterone Acetate (Provera) 5 MG TABLET 1 Tablet ORAL As Directed as needed for MESNTRUAL CYCLE Qty = 90 Comments: NOT GIVEN Verapamil HCl (Verapamil ER) 180 MG CAP24H.PEL 1 Capsule ORAL DAILY Qty = 90 Comments: Last Taken: 12/30/17 Time: 9:00 am Tizanidine HCl (Tizanidine HCl) 2 MG TABLET 1-2 Tablet ORAL TWICE DAILY as needed for MUSCLE SPASMS Qty = 120 Comments: Last Taken: 12/30/17 Time: 9:00 am Neomycin/Polymyxin B Sulf/Hc (Fjisluyw-Sqpxxlwnq-Cl Ear Soln) 3.5 MG/ML-10,000 UNIT/ML-1 % SOLUTION 2-3 DROP OTIC As Directed as needed for ITCHING Comments: NOT GIVEN IN HOSPITAL Cholecalciferol (Vitamin D3) (Vitamin D) 2,000 UNIT TABLET 1 Tablet ORAL DAILY Qty = 30 Comments: Last Taken: 12/30/17 Time: 9:00 am, Start taking the following new medications: Oxycodone HCl (Oxycodone HCl) 10 MG TABLET 10 Milligram ORAL EVERY 4 HOURS NEEDED as needed for PAIN SCALE 4-6 ( MODERATE) Qty = 30 No Refills Comments: Last Taken: 12/30/17 Time: 10:50 am Butalb/Acetaminophen/Caffeine (Fdqwad-Tkzmxcue-Bztk 50-325-40) 50 MG-325 MG-40 MG TABLET 1 Tablet ORAL EVERY 8 HOURS NEEDED as needed for HEADACHE Qty = 30 No Refills Comments: Last Taken: 12/30/17 Time: 10:30 am Copies To: Miri RODRIGUEZ,Aldo Hernandez; Layne RODRIGUEZ,Ronan Oshea Attending MD Review Statement Documenting Attending: Dino Roberto MD Other Findings: Patient is medically stable to be discharged today. Was discharged 12/30/17.
[2017-12-26 14:55] VITALS: BP 110/68
[2017-12-26 21:47] VITALS: BP 110/80
[2017-12-27 06:48] VITALS: BP 110/76
--- NOTE | 2017-12-27 06:52 | PN- Housestaff ---
Tamanna Betancourt MD,[facility] 12/27/17 0652: Subjective Follow-up For: MS exacerbation Rule out adrenal insufficiency Subjective: Patient visited today, was lying in bed comfortably in no acute distress, was alert and oriented. reported improve overall weakness, improve odynophagia No fever or chills, no shortness of breathing, no chest pain, no other events. patient was stable to be discharged today. Review of Systems Constitutional: Reports: see HPI. Objective Last 24 Hrs of Vital Signs/I&O Vital Signs Date Time Temp Pulse Resp B/P B/P Pulse O2 O2 Flow FiO2 Mean Ox Delivery Rate 12/27 1448 98.0 102 20 110/90 100 Room Air 12/27 0951 99 100/70 12/27 0648 98.0 99 20 110/76 97 Room Air 12/26 2147 98.0 102 20 110/80 97 Room Air Intake & Output 12/27 1600 12/27 0800 12/27 0000 Intake Total 600 200 320 Output Total 200 500 Balance 400 -300 320 Intake, IV 0 40 Intake, Oral 600 200 280 Number 0 0 Bowel Movements Output, Urine 200 500 Physical Exam General Appearance: Alert, Oriented X3, Cooperative, No Acute Distress Skin Temp/Moisture Exam: Warm/Dry Sepsis Skin Exam (color): Normal for Ethnicity HEENT: Atraumatic, EOMI, Mucous Membr. moist/pink Cardiovascular: Normal S1, Normal S2 Lungs: Clear to Auscultation Abdomen: Soft, No Tenderness Neurological: grossly no change compared to yesterday Current Medications: Current Medications Sig/Angélica Start time Last Medication Dose Route Stop Time Status Admin Acetaminophen/ 1 TAB Q4P PRN 12/22 1045 AC 12/26 Butalbital/Caffeine PO 2133 Al Hydroxide/Mg 30 ML Q4-6 PRN PRN 12/23 0415 AC Hydroxide PO Apixaban 2.5 MG BID 12/22 1000 AC 12/27 PO 0951 Bupropion HCl 150 MG DAILY 12/22 1000 AC 12/27 PO 0950 Cholecalciferol 2,000 IU DAILY 12/22 1000 AC 12/27 PO 0950 Fluconazole 200 MG DAILY 12/23 1000 AC 12/27 PO 0951 Lidocaine 15 ML BID 12/22 1514 AC 12/27 PO 0951 Lidocaine 1 PAT DAILY PRN 12/22 0315 AC 12/26 EXT 1552 Omeprazole 40 MG DAILY AC 12/22 0700 AC 12/27 PO 0646 Oxybutynin Chloride 10 MG BID 12/22 1000 AC 12/27 PO 0951 Oxycodone HCl 10 MG Q4P PRN 12/26 1009 AC 12/27 PO 1434 Tizanidine HCl 4 MG BID PRN 12/22 0415 AC 12/24 PO 2350 Topiramate 50 MG DAILY 12/22 1000 AC 12/27 PO 0951 Tramadol HCl 100 MG TID 12/22 1000 AC 12/27 PO 1604 Verapamil HCl 180 MG DAILY 12/22 1000 AC 12/27 PO 0951 Assessment/Plan Assessment: 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 She has a cath port for plasmapheresis PMH: progressive MS, DVT/PE, migraines, hypertension, muscle spasms, GERD, urinary incontinence who was recently treated outpatient for MS exacerbation from with IV steroids injections, who . Problem list: MS exacerbation r/o Hypocortisolism Odynophagia Plan: patient stable to be discahrged to STR today Complete fluconazole for possible Candidiasis of total 7 days Continue Fioricet for migraines Continue Oxycodone Continue Tramadol Neurology recommendations-Dr. Tillman Keep off steroids as per Endo follow bobbin painter for pain Diet: Heart healthy DVT ppx:ALPS and on Eliquise Code: Full Patient was discharged with recommendations to follow in outpatient. Problem List: 1. MULTIPLE SCLEROSIS Pain Ratin Pain Location: generalized Pain Goal: Pain 4 or less Pain Plan: Continue current plan Tomorrow's Labs & Rationales: NONE Dino Roberto MD 12/27/17 1201: Attending MD Review Statement Attending Statement Attending MD Statement: examined this patient, discuss w/resident/PA/PLATINUMSMITH, agreed w/resident/PA/PLATINUMSMITH, reviewed EMR data (avail), discussed with nursing, discussed with case mgmt, amended to note Attending Assessment/Plan: Patient seen and examined. Resting comfortably not in any acute distress. No issues overnight reported by nursing staff. She continues to report generalized pain but admits the pain is better controlled on her current regimen. She has been accepted for rehabilitation at [facility]. Patient is in agreement with going to this facility. She is medically stable to be discharged today. She will be discharged on the current pain regimen. She will continue on Fioricet for her migraines. She reports that her odynophagia has improved following initiation of fluconazole. We will continue this empirically for esophageal candidiasis. If she develops odynophagia again she will require endoscopic evaluation. She is to follow-up with her neurology service in the outpatient setting.
[2017-12-27] MEDS ORDERED: DIFLUCAN100 M1 PO (11:29)
[2017-12-27 14:48] VITALS: BP 110/90
[2017-12-27 22:17] VITALS: BP 118/60
[2017-12-28 06:39] VITALS: BP 140/80
--- NOTE | 2017-12-28 06:42 | PN- Housestaff ---
Tamanna Betancourt MD,[facility] 12/28/17 0642: Subjective Follow-up For: MS exacerbation Rule out adrenal insufficiency Subjective: Patient visited today, was lying in bed comfortably in no acute distress, was alert and oriented. reported improve overall weakness, no odynophagia reported improved pain to level of 5 No fever or chills, no shortness of breathing, no chest pain, no other events. Pending insurance approval Patient was stable to be discharged today to [facility]. Review of Systems Constitutional: Reports: no symptoms. Objective Last 24 Hrs of Vital Signs/I&O Vital Signs Date Time Temp Pulse Resp B/P B/P Pulse O2 O2 Flow FiO2 Mean Ox Delivery Rate 12/28 0836 105 140/80 12/28 0800 97 Room Air 12/28 0639 98.2 105 20 140/80 97 Room Air 12/27 2217 98.9 97 20 118/60 100 Room Air 12/27 1448 98.0 102 20 110/90 100 Room Air Intake & Output 12/28 1600 12/28 0800 12/28 0000 Intake Total 500 300 Output Total 300 150 Balance 200 150 Intake, Oral 500 300 Output, Urine 300 150 Physical Exam General Appearance: Alert, Oriented X3, Cooperative, No Acute Distress Skin: No Significant Lesion Skin Temp/Moisture Exam: Warm/Dry Sepsis Skin Exam (color): Normal for Ethnicity HEENT: Atraumatic, EOMI Cardiovascular: Normal S1, Normal S2 Lungs: Normal Air Movement Abdomen: Soft, No Tenderness Neurological: grossly no change compared to yesterday Extremities: No Edema Current Medications: Current Medications Sig/Angélica Start time Last Medication Dose Route Stop Time Status Admin Acetaminophen/ 1 TAB Q4P PRN 12/22 1045 AC 12/27 Butalbital/Caffeine PO 2048 Al Hydroxide/Mg 30 ML Q4-6 PRN PRN 12/23 0415 AC Hydroxide PO Apixaban 2.5 MG BID 12/22 1000 AC 12/28 PO 0835 Bisacodyl 10 MG DAILY PRN 12/28 1100 AC [place] Bupropion HCl 150 MG DAILY 12/22 1000 AC 12/28 PO 0837 Cholecalciferol 2,000 IU DAILY 12/22 1000 AC 12/28 PO 0837 Fluconazole 200 MG DAILY 12/23 1000 AC 12/28 PO 0837 Lidocaine 15 ML BID 12/22 1514 AC 12/27 PO 0951 Lidocaine 1 PAT DAILY PRN 12/22 0315 AC 12/27 EXT 1654 Omeprazole 40 MG DAILY AC 12/22 0700 AC 12/28 PO 0522 Oxybutynin Chloride 10 MG BID 12/22 1000 AC 12/28 PO 0835 Oxycodone HCl 10 MG Q4P PRN 12/26 1009 AC 12/28 PO 1000 Polyethylene Glycol 17 GM DAILY 12/27 1655 AC 12/28 PO 0837 Senna 187 MG AT BEDTIME 12/27 2200 AC 12/27 PO 2114 Senna/Docusate Sodium 2 TAB DAILY 12/28 1115 AC PO Tizanidine HCl 4 MG BID PRN 12/22 0415 AC 12/24 PO 2350 Topiramate 50 MG DAILY 12/22 1000 AC 12/28 PO 0837 Tramadol HCl 100 MG TID 12/22 1000 AC 12/28 PO 0838 Verapamil HCl 180 MG DAILY 12/22 1000 AC 12/28 PO 0836 Assessment/Plan Assessment: 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 She has a cath port for plasmapheresis PMH: progressive MS, DVT/PE, migraines, hypertension, muscle spasms, GERD, urinary incontinence who was recently treated outpatient for MS exacerbation from with IV steroids injections, who . Problem list: MS exacerbation r/o Hypocortisolism Odynophagia Plan: patient stable to be discahrged to STR today Complete fluconazole for possible Candidiasis of total 7 days Continue Fioricet for migraines Continue Oxycodone Continue Tramadol Neurology recommendations-Dr. 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 MULTIPLE SCLEROSIS Pain Ratin Pain Location: generalized Pain Goal: Pain 4 or less Pain Plan: Continue current plan Tomorrow's Labs & Rationales: None Dino Roberto MD 12/28/17 1326: Attending MD Review Statement Attending Statement Attending MD Statement: examined this patient, discuss w/resident/PA/MEDICAL OFFICE TECHNOLOGY INSTRUCTOR, agreed w/resident/PA/MEDICAL OFFICE TECHNOLOGY INSTRUCTOR, reviewed EMR data (avail), discussed with nursing, discussed with case mgmt, amended to note Attending Assessment/Plan: Patient seen and examined. Resting comfortably not in any acute distress. No issues overnight. No new complaints this morning. Scheduled for discharge today however her insurance company has denied payment for an acute rehab facility. I have called for appear to be reviewed and I am yet to receive a callback number. Physical therapy service is recommending acute rehab for the patient upon discharge. Will follow up with the case management service regarding consideration of SNF placement if the denial of payment by her insurance agency is upheld.
[2017-12-28 16:56] VITALS: BP 110/76
[2017-12-28 21:10] VITALS: BP 130/90
--- NOTE | 2017-12-29 06:59 | PN- Housestaff ---
Tamanna Betancourt MD,[facility] 12/29/17 0659: Subjective Follow-up For: MS exacerbation Rule out adrenal insufficiency Subjective: Patient visited today, was lying in bed comfortably in no acute distress, was alert and oriented. relatively more drowsy, but arousable, increased weakness of bilateral LE. No fever or chills, no shortness of breathing, no chest pain, no other events. Review of Systems Constitutional: Reports: see HPI. Objective Last 24 Hrs of Vital Signs/I&O Vital Signs Date Time Temp Pulse Resp B/P B/P Pulse O2 O2 Flow FiO2 Mean Ox Delivery Rate 12/29 1526 98.6 96 20 134/92 98 12/29 1056 Room Air Room Air 12/29 0801 130/80 12/29 0713 97.9 96 20 126/80 96 Room Air 12/28 2110 98.4 100 18 130/90 97 12/28 1656 98.9 97 18 110/76 97 Intake & Output 12/29 1600 12/29 0800 12/29 0000 Intake Total 150 450 960 Output Total 500 400 Balance 150 -50 560 Intake, Oral 150 450 960 Number 1 Bowel Movements Output, Urine 500 400 Physical Exam General Appearance: Cooperative, No Acute Distress, drowsy. arousable Skin: No Significant Lesion Skin Temp/Moisture Exam: Warm/Dry Sepsis Skin Exam (color): Normal for Ethnicity HEENT: Atraumatic, EOMI Cardiovascular: Normal S1, Normal S2 Lungs: Clear to Auscultation Abdomen: Soft, No Tenderness Neurological: Normal Speech, slowed, drowsy Extremities: No Edema Current Medications: Current Medications Sig/Angélica Start time Last Medication Dose Route Stop Time Status Admin Acetaminophen/ 1 TAB Q4P PRN 12/22 1045 AC 12/29 Butalbital/Caffeine PO 1422 Al Hydroxide/Mg 30 ML Q4-6 PRN PRN 12/23 0415 AC Hydroxide PO Apixaban 2.5 MG BID 12/22 1000 AC 12/29 PO 0753 Bisacodyl 10 MG DAILY PRN 12/28 1100 AC 12/28 [place] 1353 Bupropion HCl 150 MG DAILY 12/22 1000 AC 12/29 PO 0802 Cholecalciferol 2,000 IU DAILY 12/22 1000 AC 12/29 PO 0801 Fluconazole 200 MG DAILY 12/23 1000 AC 12/29 PO 0801 Lidocaine 15 ML BID 12/22 1514 AC 12/29 PO 0753 Lidocaine 1 PAT DAILY PRN 12/22 0315 AC 12/28 EXT 1740 Omeprazole 40 MG DAILY AC 12/22 0700 AC 12/29 PO 0637 Oxybutynin Chloride 10 MG BID 12/22 1000 AC 12/29 PO 0753 Oxycodone HCl 10 MG Q4P PRN 12/29 1445 AC 12/29 PO 1444 Oxycodone HCl 10 MG Q4P PRN 12/26 1009 DC 12/29 PO 0910 Patient Medication 1 ED ONE ONE 12/29 1500 DC Teaching ED 12/29 1501 Polyethylene Glycol 17 GM DAILY 12/27 1655 AC 12/28 PO 0837 Senna 187 MG AT BEDTIME 12/27 2200 AC 12/28 PO 2127 Senna/Docusate Sodium 2 TAB DAILY 12/28 1115 AC 12/28 PO 1353 Tizanidine HCl 4 MG BID PRN 12/22 0415 AC 12/28 PO 1216 Topiramate 50 MG DAILY 12/22 1000 AC 12/29 PO 0801 Tramadol HCl 100 MG TID 12/22 1000 DC 12/29 PO 0756 Verapamil HCl 180 MG DAILY 12/22 1000 AC 12/29 PO 0801 Assessment/Plan Assessment: 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 She has a cath port for plasmapheresis PMH: progressive MS, DVT/PE, migraines, hypertension, muscle spasms, GERD, urinary incontinence who was recently treated outpatient for MS exacerbation from with IV steroids injections, who . Problem list: MS exacerbation r/o Hypocortisolism Odynophagia Plan: patient stable to be discahrged to STR today Complete fluconazole for possible Candidiasis of total 7 days Continue Fioricet for migraines Continue Oxycodone Continue Tramadol Neurology recommendations-Dr. 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 Lower extremity weakness 2. MULTIPLE SCLEROSIS Pain Ratin Pain Location: generalized Pain Goal: Pain 4 or less Pain Plan: Continue current plan Tomorrow's Labs & Rationales: none Felisa RODRIGUEZ,Dino 12/29/17 1216: Attending MD Review Statement Attending Statement Attending MD Statement: examined this patient, discuss w/resident/PA/LEDGE MAN, agreed w/resident/PA/LEDGE MAN, reviewed EMR data (avail), discussed with nursing, discussed with case mgmt, amended to note Attending Assessment/Plan: Patient seen and examined. She has been waiting approval by her insurance company for placement in an acute rehab facility. During the course of the week the physical therapy and occupational therapy service have both recommended that patient should be discharged to an acute rehabilitation facility. Physical therapy service did say that patient is able to tolerate 3 hours of rehab daily. Her insurance company however did not approve this. I had a peer to peer review today. It appears the documentation from the physical therapy service did not support their recommendations. Unfortunately today patient is performing significantly below her status during the course of the week. She required significant help getting to the commode today. After what she required assistance from up to 4 people before she could get back in bed. She continues complain of generalized pain but states that this is controlled on her current regimen. Pain is no worse than usual. Patient also admits that on a monthly basis she would occasionally get this week but states that spontaneously resolved. On examination she was sleepy when we first approached the but became more awake. She is oriented 3. Power is 4/5 bilateral upper extremities. Power is 1/5 bilateral lower extremities. Problems: 1. Severe deconditioning 2. Multiple sclerosis 3. Pain syndrome Plan: -Hold off discharge today. She is to the condition to be safely discharged to a rehab facility today. -Patient reports that this happens on a monthly basis at home and actually improved spontaneously. Will reassess patient. If of profound weakness persists recommend MRI imaging of the lumbar spine -Continue current pain regimen. Avoid intravenous steroids to prevent oversedation. -Physical therapy to continue to follow patient while she remains in the hospital.
[2017-12-29 07:13] VITALS: BP 126/80
[2017-12-29 15:26] VITALS: BP 134/92
[2017-12-29 22:40] VITALS: BP 100/56
[2017-12-30 06:28] VITALS: BP 120/82
--- NOTE | 2017-12-30 08:26 | PN- Housestaff ---
See Addendum Subjective Follow-up For: MS exacerbation Rule out adrenal insufficiency Subjective: Patient visited today, was lying in bed comfortably in no acute distress, was alert and oriented. No fever or chills, no shortness of breathing, no chest pain, no other events. Improved weakness and mental status. Neurology consult recommended continuation of current treatment. Discharge planning pending placement. Review of Systems Constitutional: Reports: see HPI. Objective Last 24 Hrs of Vital Signs/I&O Vital Signs Date Time Temp Pulse Resp B/P B/P Pulse O2 O2 Flow FiO2 Mean Ox Delivery Rate 12/30 0901 122/88 12/30 0628 98.6 93 20 120/82 100 Room Air 12/29 2240 98.0 87 20 100/56 99 Room Air 12/29 1526 98.6 96 20 134/92 98 12/29 1056 Room Air Room Air Intake & Output 12/30 1600 12/30 0800 12/30 0000 Intake Total 480 400 Output Total 250 1400 Balance 230 -1000 Intake, Oral 480 400 Output, Urine 250 1400 Physical Exam General Appearance: Alert, Oriented X3, Cooperative, No Acute Distress Skin: No Significant Lesion HEENT: Atraumatic, EOMI Cardiovascular: Normal S1, Normal S2 Lungs: Normal Air Movement Abdomen: Soft, No Tenderness Neurological: strength 4-5/5 UE 2-3/5 in LE Extremities: No Edema Current Medications: Current Medications Sig/Angélica Start time Last Medication Dose Route Stop Time Status Admin Acetaminophen/ 1 TAB Q4P PRN 12/22 1045 AC 12/29 Butalbital/Caffeine PO 1422 Al Hydroxide/Mg 30 ML Q4-6 PRN PRN 12/23 0415 AC Hydroxide PO Apixaban 2.5 MG BID 12/22 1000 AC 12/30 PO 0901 Bisacodyl 10 MG DAILY PRN 12/28 1100 AC 12/28 [place] 1353 Bupropion HCl 150 MG DAILY 12/22 1000 AC 12/30 PO 0901 Cholecalciferol 2,000 IU DAILY 12/22 1000 AC 12/30 PO 0901 Fluconazole 200 MG DAILY 12/23 1000 AC 12/30 PO 0900 Lidocaine 15 ML BID 12/22 1514 AC 12/29 PO 0753 Lidocaine 1 PAT DAILY PRN 12/22 0315 AC 12/28 EXT 1740 Omeprazole 40 MG DAILY AC 12/22 0700 AC 12/30 PO 0611 Oxybutynin Chloride 10 MG BID 12/22 1000 AC 12/30 PO 0902 Oxycodone HCl 10 MG Q4P PRN 12/29 1445 AC 12/30 PO 0611 Oxycodone HCl 10 MG Q4P PRN 12/26 1009 DC 12/29 PO 0910 Patient Medication 1 ED ONE ONE 12/29 1500 DC Teaching ED 12/29 1501 Polyethylene Glycol 17 GM DAILY 12/27 1655 AC 12/28 PO 0837 Senna 187 MG AT BEDTIME 12/27 2200 AC 12/29 PO 2037 Senna/Docusate Sodium 2 TAB DAILY 12/28 1115 AC 12/28 PO 1353 Tizanidine HCl 4 MG BID PRN 12/22 0415 AC 12/30 PO 0900 Topiramate 50 MG DAILY 12/22 1000 AC 12/30 PO 0900 Tramadol HCl 100 MG TID 12/22 1000 DC 12/29 PO 0756 Verapamil HCl 180 MG DAILY 12/22 1000 AC 12/30 PO 0901 Assessment/Plan Assessment: 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 She has a cath port for plasmapheresis PMH: progressive MS, DVT/PE, migraines, hypertension, muscle spasms, GERD, urinary incontinence who was recently treated outpatient for MS exacerbation from with IV steroids injections, who . Problem list: MS exacerbation r/o Hypocortisolism Odynophagia Plan: patient stable to be discahrged to STR, pending insurance approval Completed 7day fluconazole Continue Fioricet for migraines Continue Oxycodone Continue Tramadol Follow Neurology recommendations-Dr. 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 MULTIPLE SCLEROSIS 2. Lower extremity weakness Pain Ratin Pain Location: generalized Pain Goal: Pain 4 or less Pain Plan: Continue current plan Tomorrow's Labs & Rationales: none
[2017-12-30 14:49] VITALS: BP 110/80
[2017-12-30 16:00] VITALS: BP 110/80
[2017-12-30 16:13] VITALS: BP 110/80
== END 2017-12-30 18:15 | DRG 59 ==
LOC: DELPENDDIS → ERH 20:50 → 2NA 22:39 → ERHI 22:39 → ENRESERV 12-22 00:15 → 2NA 12-22 02:10 → ENPENDDIS 12-27 12:12 → 2NA 12-30 18:15
PROVIDERS: Internal Medicine; Physician Assistant Medical; Student in an Organized Health Care Education/Training Program
DX: G35 Multiple sclerosis (principal); B37.89 Other sites of candidiasis; E27.40 Unspecified adrenocortical insufficiency; R15.9 Full incontinence of feces; R13.10 Dysphagia, unspecified; E87.6 Hypokalemia; I10 Essential (primary) hypertension; K21.9 Gastro-esophageal reflux disease without esophagitis; R32 Unspecified urinary incontinence; D50.9 Iron deficiency anemia, unspecified; G43.909 Migraine, unspecified, not intractable, without status migrainosus; Z90.49 Acquired absence of other specified parts of digestive tract; Z79.52 Long term (current) use of systemic steroids; Z86.718 Personal history of other venous thrombosis and embolism; Z86.711 Personal history of pulmonary embolism
CPT/HCPCS: 2NAP; ERO; 36415; 36592; 81003; 81025; 82436; 87040; 96374; 97110-GO; 97112-GO; 97116-GO; 97161-GP; 97166-GO; 97530-GO; J0834; J1642; J3490

== ENCOUNTER 2018-02-02 19:01 | Inpatient (IN) | payer OTHER ==
[~2018-02-02] VITALS: Ht 160 cm; Wt 86.7 kg
[~2018-02-02 19:01] MED LIST changes: +BUTALB-ACETAMI1 EACH PO; +DIFLUCAN100 M1 PO; -ELIQUIS2.5 M1 PO; +ELIQUIS5 M1 PO; +OXYCODONE HCL10 M2 PO; +TOPAMAX25 M3 PO; -TOPIRAMATE50 M1 PO
--- NOTE | 2018-02-02 19:42 | ED NECK/BACK PAIN COMPLAINT ---
History of Present Illness General Chief Complaint: General Adult Stated Complaint: FEVER,"CHRONIC PAIN FROM MS",SORE THROAT Source: patient, family, old records Exam Limitations: no limitations Vital Signs & Intake/Output Vital Signs & Intake/Output Vital Signs Date Time Temp Pulse Resp B/P B/P Pulse O2 O2 Flow FiO2 Mean Ox Delivery Rate 02/03 0816 80 128/80 02/03 0626 99.9 80 18 128/80 96 Room Air 02/03 0200 99.6 122 18 134/78 100 Room Air 02/03 0125 101.7 100 22 128/80 98 02/02 2142 100.6 118 130/82 100 Room Air 02/02 2034 131/84 02/02 1919 98.1 120 22 136/88 97 ED Intake and Output 02/03 0000 02/02 1200 Intake Total 250 Output Total Balance 250 Intake, IV 250 Patient 99.79 kg Weight Allergies Coded Allergies: NO KNOWN ALLERGIES (09/18/15) Reconcile Medications Amitriptyline HCl 25 MG TABLET 1 TAB PO Q12P headache (Reported) Apixaban (Eliquis) 5 MG TABLET 1 TAB PO BID DVT/PE (Reported) Bupropion HCl (Bupropion HCl Sr) 150 MG TABLET.ER 1 TAB PO DAILY MENTAL HEALTH (Reported) Butalb/Acetaminophen/Caffeine (Ephmdb-Bqbtjqrl-Slly 50-325-40) 50 MG-325 MG-40 MG TABLET 1 TAB PO Q8P PRN HEADACHE Cholecalciferol (Vitamin D3) (Vitamin D) 2,000 UNIT TABLET 1 TAB PO DAILY supplement Ergocalciferol (Vitamin D2) (Vitamin D2) 50,000 UNIT CAPSULE 1 CAP PO QSUN SUPPLEMENT (Reported) Eszopiclone 3 MG TABLET 1 TAB PO QPM PRN insomnia (Reported) Ibuprofen 800 MG TABLET 1 TAB PO Q8 pain (Reported) Lidocaine 5 % ADH..PATCH 1 PAT TOP AD PRN PAIN (Reported) Medroxyprogesterone Acetate (Provera) 5 MG TABLET 1 TAB PO AD PRN MESNTRUAL CYCLE (Reported) Methocarbamol (Robaxin-750) 750 MG TABLET 1 TAB PO BID PRN back pain ( Reported) Neomycin/Polymyxin B Sulf/Hc (Uacgwdsm-Vpecfulru-Ye Ear Soln) 3.5 MG/ML-10,000 UNIT/ML-1 % SOLUTION 2-3 DROP OTIC AD PRN ITCHING (Reported) Ocrelizumab (Ocrevus) 300 MG/10 ML VIAL 300 MG IV Q6M MS (Reported) Oxybutynin Chloride 5 MG TABLET 2 TAB PO BID BLADDER (Reported) Oxycodone HCl 10 MG TABLET 10 MG PO Q4P PRN PAIN SCALE 4-6 (MODERATE) Pantoprazole Sodium 40 MG TABLET.DR 1 TAB PO DAILY GI (Reported) Pregabalin (Lyrica) 150 MG CAPSULE 1 CAP PO BID PRN back pain (Reported) Tizanidine HCl 2 MG TABLET 1-2 TAB PO BID PRN MUSCLE SPASMS (Reported) Topiramate (Topamax) 25 MG TABLET 1 TAB PO TID migraine (Reported) Tramadol HCl 50 MG TABLET 1 TAB PO TID PAIN (Reported) Verapamil HCl (Verapamil ER) 180 MG CAP24H.PEL 1 CAP PO DAILY BP (Reported) Triage Note: PER PT PAIN FROM MS, PT VERY RIGID IN TRIAGE UNABLE TO MOVE INDEPENDENTLY ASSISTED GREATLY BY FAMILY Triage Nurses Notes Reviewed? yes : No Patient currently breastfeeds: No HPI: 27F PMH multiple sclerosis, urinary incontinence, DVT/pulmonary embolism on eliquis, GERD, recently diagnosed with streptococcal pharyngitis and placed on Azithromycin, presents with diffuse pain, worst in left shoulder, right hip, lower back, both knees, with weakness and inability to ambulate. At baseline walks with walker, but was unable to walk due to pain and weakness. Sent by her neurologist for symptomatic management. Patient's mother and sister also have pharyngitis. She denies fever, chills, chest pain, SOB, diarrhea, dysuria. Past History Travel History Traveled to [place] past 21 day No Medical History Any Pertinent Medical History? 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 No Review of Systems Review of Systems Constitutional: Reports: no symptoms. Eyes: Reports: no symptoms. Ears, Nose, Throat, Mouth: Reports: no symptoms. Respiratory: Reports: no symptoms. Cardiovascular: Reports: no symptoms. Gastrointestinal/Abdominal: Reports: no symptoms. Musculoskeletal: Reports: no symptoms. Skin: Reports: no symptoms. Neurological/Psychological: Reports: no symptoms. All Other Systems: Reviewed and Negative Physical Exam Physical Exam General Appearance: well developed/nourished, moderate distress Head: atraumatic, normal appearance Eyes: Bilateral: normal appearance. Ears, Nose, Throat, Mouth: hearing grossly normal, moist mucous membrane, pharyngeal erythema and swelling Neck: supple, full range of motion Respiratory: normal breath sounds, no respiratory distress Cardiovascular: regular rate/rhythm Gastrointestinal: soft, non-tender Back: normal inspection, normal range of motion Extremities: normal range of motion Neurologic/Psych: awake, alert, oriented x 3, normal mood/affect Skin: intact, normal color, warm/dry Core Measures CVA/TIA Diagnosis: No Progress Differential Diagnosis: AAA, aortic dissection, C spine injury, carotid dissection, cauda equina syn, herniated disc, myofascial strain, pyelo/UTI, sciatica, spinal cord inj, thoracic outlet syn, T/L spine injury, ureterolithiasis Plan of Care: Orders Procedure Date/time Status CBC WITHOUT DIFFERENTIAL 02/04 0600 Active BASIC ELECTROLYTES PLUS BUN&CR 02/04 0600 Active Regular Diet 02/03 B Active RAPID VIRAL INFLUENZA A 02/03 0800 Complete CBC WITHOUT DIFFERENTIAL 02/03 0600 Complete BASIC ELECTROLYTES PLUS BUN&CR 02/03 0600 Complete Weight 02/03 0142 Active Vital Signs 02/03 014 Active Teach/Educate 02/03 014 Active Pain Treatment and Response 02/03 014 Active Nutritional Intake, Monitor 02/03 014 Active Isolation 02/03 014 Active Intake & Output 02/03 014 Active Patient Care Conference 02/03 014 Active Activity/Ambulation 02/03 014 Active Add-on Test (ER Only) 02/03 0128 Active XRY-PORTABLE CHEST XRAY 02/03 0047 Active URINALYSIS 02/03 0047 Active CULTURE,URINE 02/03 0039 Active BLOOD CULTURE 02/03 0039 Active THROAT CULTURE W/QUICK STREP 02/03 0036 Active Pathway - chart 02/02 2356 Active House Staff 02/02 2356 Active Patient Data 02/02 2356 Active Code Status 02/02 2356 Active ED Holding Orders 02/02 2343 Active Admit to inpatient 02/02 2343 Active Vital Signs 02/02 2343 Active Code Status 02/02 2343 Complete LACTIC ACID 02/02 2235 Complete Intake & Output 02/02 215 Active HUMAN BETA HCG SCREEN 02/02 203 Complete LIPASE 02/02 193 Complete LACTIC ACID 02/02 193 Complete COMPREHENSIVE METABOLIC PANEL 02/02 1935 Complete CREATINE PHOSPHOKINASE 02/02 193 Complete CBC WITHOUT DIFFERENTIAL 02/02 1935 Complete VTE Mechanical Prophylaxis 02/02 UNK Active Current Medications Sig/Angélica Start time Last Medication Dose Stop Time Status Admin Ergocalciferol 50,000 IU QSUN 02/04 0900 AC (Drisdol) Amoxicillin 500 MG TID 02/03 0900 AC 02/03 (Amoxil) 0815 Apixaban 2.5 MG BID 02/03 0900 CAN (Eliquis) Apixaban 5 MG BID 02/03 0900 AC 02/03 (Eliquis) 0815 Bupropion HCl 150 MG DAILY 02/03 0900 AC 02/03 (Wellbutrin SR) 0815 Enoxaparin Sodium 40 MG DAILY 02/03 0900 CAN (Lovenox) Lidocaine 1 PAT Q24 02/03 0900 AC 02/03 (Lidoderm) 0813 Medroxyprogesterone 5 MG DAILY 02/03 0900 AC 02/03 Acetate 0816 (Provera 2.5 MG Tab) Oxybutynin Chloride 10 MG BID 02/03 0900 AC 02/03 (Ditropan) 0816 Pantoprazole Sodium 40 MG DAILY 02/03 0900 CAN (Protonix) Pantoprazole Sodium 40 MG DAILY 02/03 0900 CAN (Protonix) Topiramate 25 MG TID 02/03 0900 AC 02/03 (Topamax) 1420 Tramadol HCl 100 MG TID 02/03 0900 AC 02/03 (Ultram) 1421 Verapamil HCl 180 MG DAILY 02/03 0900 AC 02/03 (Isoptin [id number] Tab 0816 (Verapamil Sr)) Omeprazole 40 MG DAILY AC 02/03 0700 AC 02/03 (Prilosec) 0616 Ibuprofen 800 MG Q8 02/03 0600 AC 02/03 (Motrin) 1421 Acetaminophen/ 1 TAB Q8P PRN 02/03 021 AC Butalbital/Caffeine (Fioricet) Methocarbamol 750 MG BID PRN 02/03 215 AC (Robaxin) Pregabalin 150 MG BID PRN 02/03 021 AC 02/03 (Lyrica) 1219 Zolpidem Tartrate 5 MG AT BEDTIME NEED.. 02/03 215 (Ambien) Amitriptyline HCl 25 MG Q12P PRN 02/03 011 AC (Elavil 25 Mg. Tablet) Oxycodone/ 2 TAB Q4P PRN 02/03 011 AC 02/03 Acetaminophen 0957 (Percocet) Sodium Chloride 1,000 ML Q13H 02/03 011 CAN (Normal Saline 0.9%) Sodium Chloride 1,000 ML Q13H 02/03 0100 AC 02/03 (Normal Saline 0.9%) 1420 Tizanidine HCl 4 MG BID PRN 02/02 2345 (Zanaflex) Laboratory Tests 02/03/18 1045: RBC 3.77 L, MCV 77.1 L, MCH 25.1 L, MCHC 32.5 L, RDW 17.4 H, MPV 10.4, Gran % 85.9 H, Lymphocytes % 5.4 L, Monocytes % 5.6, Eosinophils % 2.8, Basophils % 0.3, Absolute Granulocytes 8.3 H, Absolute Lymphocytes 0.5 L, Absolute Monocytes 0.5, Absolute Eosinophils 0.3, Absolute Basophils 0 02/03/18 0610: Anion Gap 12, Estimated GFR > 60, BUN/Creatinine Ratio 10.0 02/03/18 0121: Total Beta HCG Cancelled 02/02/18 2235: Lactic Acid 1.1 02/02/182031: Anion Gap 13, Estimated GFR > 60, BUN/Creatinine Ratio 12.0, Glucose 94, Lactic Acid 0.5 L, Calcium 9.3, Total Bilirubin 0.3, AST 10 L, ALT 18, Alkaline Phosphatase 58, Creatine Kinase 128, Total Protein 6.9, Albumin 4.1, Globulin 2.8, Albumin/Globulin Ratio 1.5, Lipase 177, Total Beta HCG NEGATIVE, CBC w Diff MAN DIFF ORDERED, RBC 4.11 L, MCV 77.1 L, MCH 25.3 L, MCHC 32.8 L, RDW 17.9 H, MPV 9.3, Gran % 87.5 H, Lymphocytes % 4.5 L, Monocytes % 7.0, Eosinophils % 0.7, Basophils % 0.3, Absolute Granulocytes 8.1 H, Segmented Neutrophils 83 H, Band Neutrophils 2, Absolute Lymphocytes 0.4 L, Lymphocytes 6 L, Monocytes 8, Absolute Monocytes 0.6, Eosinophils 1, Absolute Eosinophils 0.1, Absolute Basophils 0, Platelet Estimate ADEQUATE, Hypochromic-Microcytic 2+, Anisocytosis 1+, Microcytic Cells 1+ Microbiology 02/03 1000 NASOPHARYN: Influenza Virus A & B Rapid Smear - COMP 02/03 115 BLOOD: Blood Culture - RECD 02/03 39 URINE ROUT: Urine Culture - COLB 02/03 39 BLOOD: Blood Culture - COLB Departure Departure Disposition: STILL A PATIENT Condition: Stable Clinical Impression Primary Impression: Streptococcal pharyngitis Secondary Impressions: Exacerbation of multiple sclerosis Lower back pain Qualifiers: Chronicity: acute Back pain laterality: bilateral Sciatica presence : without sciatica Qualified Code: M54.5 - Low back pain Referrals: Miri RODRIGUEZ,Aldo Hernandez (PCP/Family) Departure Forms: Customer Survey General Discharge Information Admission Note Spoke With: Kai Goodwin MD Documentation of Exam: Documentation of any treatments & extenuating circumstances including Concerns Regarding Discharge (functional status, medication knowledge or non-compliance, living conditions, etc.) that warrant an admission rather than observation: streptoccal pharyngitis in a severe MS patient with severe pain and weakness, unable to ambulate or transfer, painuncontrolled, cannot receive Solumedrol due to infection, will admit to medicine for pain control, IV antibiotics, neurology consult, symptom management, PT eval.
[2018-02-02 20:54] LABS: ABSOLUTE BASOPHIL COUNT 0 /CUMM (0.0-0.2); ABSOLUTE EOSINOPHIL COUNT 0.1 /CUMM (0.0-0.7); ABSOLUTE GRANULOCYTE CT 8.1 /CUMM (1.4-6.5); ABSOLUTE LYMPH COUNT 0.4 /CUMM (1.2-3.4); ABSOLUTE MONOCYTE COUNT 0.6 /CUMM (0.10-0.60); BASOPHIL % 0.3 % (0.0-2.0); EOSINOPHIL % 0.7 % (0-5); GRANULOCYTE % 87.5 % (42.2-75.2); HEMATOCRIT 31.7 % (37-47); MEAN CORPUSCULAR HGB 25.3 PG (27.0-31.0); MEAN CORPUSCULAR HGB CONC 32.8 G/DL (33.0-37.0); MEAN CORPUSCULAR VOLUME 77.1 FL (81.0-99.0); MEAN PLATELET VOLUME 9.3 FL (7.4-10.4); PLATELET COUNT 328 /CUMM (130-400); RBC DISTRIBUTION WIDTH 17.9 % (11.5-14.5); RED BLOOD CELL CT 4.11 /CUMM (4.20-5.40); WHITE BLOOD CELL COUNT 9.3 /CUMM (4.8-10.8)
--- NOTE | 2018-02-02 23:48 | History & Physical ---
Viral Valle 02/02/18 2346: General Information and HPI History of Present Illness: Ms. Alba is a 27-year-old woman with past medical history of progressive multiple sclerosis, urinary incontinence, DVT/pulmonary embolism on eliquis, GERD, migraines, hypertension and muscle spasm who presents to the ED with chills and generalized pain. Patient reports she has been getting progressively worsening weakness and pain for the past few days. She also reports worsening right eye visual loss and pain with swallowing. She also reports worsening right eye blurry vision. She visited an urgent clinic to evaluate for strep throat given the fact that her goddaughter and mother both have strep throat. She was told she may have a mild case of strep throat and was discharged with Azithromycin (ZPAK). She then went for her routine visit at Dr. Tillman's office. It took her approximately 45 minutes with the assistance of her dad to go from the house to the car which is in close proximity and only requires 3 steps. During her visit she was unable to get up from the chair to the exam table and was instead examined in the chair. While being examined she failed the finger to nose testing which she reports she normally is able to do. She was sent home with a trial of Lyrica 150 mg BID and a retry prescription for methocarbamol. She received her Ocrelizumab in October that made her more energized. She often gets migraines which is relieved with Coke soda. At baseline she walks with a walker or a Rollator. She denies SOB, CP, cough, nausea, vomiting, dysuria, urinary frequency or bowel symptoms. In the ED she had a Tmax of 100.6, tachypneic and tachycardic HR 120. She received 1 dose of IV Unasyn and 4 mg Morphine Allergies/Medications Allergies: Coded Allergies: NO KNOWN ALLERGIES (09/18/15) Home Med list Amitriptyline HCl 25 MG TABLET 1 TAB PO Q12P headache (Reported) Apixaban (Eliquis) 5 MG TABLET 1 TAB PO BID DVT/PE (Reported) Bupropion HCl (Bupropion HCl Sr) 150 MG TABLET.ER 1 TAB PO DAILY MENTAL HEALTH (Reported) Butalb/Acetaminophen/Caffeine (Jfnmyg-Rismaepc-Qyae 50-325-40) 50 MG-325 MG-40 MG TABLET 1 TAB PO Q8P PRN HEADACHE Cholecalciferol (Vitamin D3) (Vitamin D) 2,000 UNIT TABLET 1 TAB PO DAILY supplement Ergocalciferol (Vitamin D2) (Vitamin D2) 50,000 UNIT CAPSULE 1 CAP PO QSUN SUPPLEMENT (Reported) Eszopiclone 3 MG TABLET 1 TAB PO QPM PRN insomnia (Reported) Ibuprofen 800 MG TABLET 1 TAB PO Q8 pain (Reported) Lidocaine 5 % ADH..PATCH 1 PAT TOP AD PRN PAIN (Reported) Medroxyprogesterone Acetate (Provera) 5 MG TABLET 1 TAB PO AD PRN MESNTRUAL CYCLE (Reported) Methocarbamol (Robaxin-750) 750 MG TABLET 1 TAB PO BID PRN back pain ( Reported) Neomycin/Polymyxin B Sulf/Hc (Uzzodutm-Awlacekqg-Tv Ear Soln) 3.5 MG/ML-10,000 UNIT/ML-1 % SOLUTION 2-3 DROP OTIC AD PRN ITCHING (Reported) Ocrelizumab (Ocrevus) 300 MG/10 ML VIAL 300 MG IV Q6M MS (Reported) Oxybutynin Chloride 5 MG TABLET 2 TAB PO BID BLADDER (Reported) Oxycodone HCl 10 MG TABLET 10 MG PO Q4P PRN PAIN SCALE 4-6 (MODERATE) Pantoprazole Sodium 40 MG TABLET.DR 1 TAB PO DAILY GI (Reported) Pregabalin (Lyrica) 150 MG CAPSULE 1 CAP PO BID PRN back pain (Reported) Tizanidine HCl 2 MG TABLET 1-2 TAB PO BID PRN MUSCLE SPASMS (Reported) Topiramate (Topamax) 25 MG TABLET 1 TAB PO TID migraine (Reported) Tramadol HCl 50 MG TABLET 1 TAB PO TID PAIN (Reported) Verapamil HCl (Verapamil ER) 180 MG CAP24H.PEL 1 CAP PO DAILY BP (Reported) Past History Travel History Traveled to [place] past 21 day No Medical History Neurological: migraine, multiple sclerosis Cardiovascular: hypertension Respiratory: pulmonary embolism Gastrointestinal: GERD Hepatic: NONE Renal: urinary incontinence Musculoskeletal: muscle spasms Psychiatric: NONE Endocrine: NONE Blood Disorders: PE Cancer(s): NONE 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 parent Services at Home: None Primary Language: [place] Functional Ability ADLs Independent: eating, toileting, bathing. Needs Assist: dressing. Ambulation: walker IADLs Needs Assist: transportation. Review of Systems Review of Systems Constitutional: Reports: see HPI. Exam & Diagnostic Data Last 24 Hrs of Vital Signs/I&O Vital Signs Date Time Temp Pulse Resp B/P B/P Pulse O2 O2 Flow FiO2 Mean Ox Delivery Rate 02/02 2142 100.6 118 130/82 100 Room Air 02/02 2034 131/84 02/029 98.1 120 22 136/88 97 Intake & Output 02/03 0800 02/03 0000 02/02 1600 Intake Total 250 Output Total Balance 250 Intake, IV 250 Patient 220 lb Weight Physical Exam General Appearance Alert, Oriented X3, Cooperative, No Acute Distress, Obese Skin L chem port HEENT Nystagmus, mild soft palatal redness Neck Supple, No JVD, No thryomegaly Lymphatic Axillary nl, Cervical nl Cardiovascular Regular Rate, Normal S1, Normal S2 Lungs Clear to Auscultation, Normal Air Movement Abdomen Normal Bowel Sounds, Soft, No Tenderness Neurological 2/5 motor strength in upper and lower extremties. Extremities No Edema, No Tenderness/Swelling Assessment/Plan Assessment: Ms. Alba is a 27-year-old woman with past medical history of progressive multiple sclerosis, urinary incontinence, DVT/pulmonary embolism on eliquis, GERD, migraines, hypertension and muscle spasm who presents to the ED with fever and generalized pain. Problem list: #Generalized pain and weakness #MS exacerbation #Hyperchloremic acidosis #GAS - centor criteria: 2pts for fever > 100.4 and absent cough Plan: Admit to gen med floor for further evaluation and management Panculture Rapid strep and influenza test Chest x-ray to evaluate for possible pneumonia NS IVF at 50 mL per hour Start Amoxicillin 500 TID for strep Neuro consult-Guarnaccia Avoid steroids Resume home meds: Lyrica 150 twice a day, methocarbamol, bupropion, apixaban, lidocaine patch, oxybutynin, oxycodone, pantoprazole, tizanidine, topiramate, tramadol, verapamil, Fioricet, amitriptyline Diet: Heart healthy DVT ppx: Apixaban Code: Full As Ranked By This Provider Problem List: 1. Chronic pain 2. Exacerbation of multiple sclerosis Core Measures/Misc (06/04) Acute Coronary Syndrome ACS Diagnosis: No Congestive Heart Failure Congestive Heart Failure Diagnosis No Cerebrovascular Accident CVA/TIA Diagnosis: No VTE (View Protocol) VTE Risk Factors Obesity No Mechanical VTE Prophylaxis d/t N/A MechProphylax Ordered No VTE Pharm Prophylaxis d/t NA PharmProphylax ordered Sepsis (View protocol) Sepsis Present: No Danial Negron MD 02/03/18 0006: General Information and HPI MD Statement: I have seen and personally examined JUDY ALBA and documented this H&P. The patient is a 27 year old F who presented with a patient stated chief complaint of []. Resident Review Statement Resident Statement: examined this patient, discussed with sport internship, agreed with sport internship, discussed with family Other Findings: Patient is 27-year-old female with past medical history of progressive multiple sclerosis complicated by urinary incontinence, muscle spasm, migraines, history of DVT/PE on Eliquis, GERD, hypertension presented with chief complaints of unable to move independently. According to the patient her mother and her goddaughter was having strep infection. Yesterday she started having chills all over the day and was having difficulty in swallowing. She went to the urgent care and was told that she has probability of having strep test and may need antibiotic. She was also having her regular visit to .during that visit she was found to have low- grade fever and was not able to perform neurological test. She was told that she should go to [facility] ED., increase ibuprofen 800 mg 3 times daily, try methocarbamol, tramadol, MRI lumbosacral spine with and without contrast.He also advised to add tablet Lyrica 150 mg twice daily. At the time of examination she was complaining of generalized weakness and pain. She explained 10 out of 10. She was also complaining of a problem in the vision of right eye. She said that she was having it but not able to discuss it with Dr. pan. Vital signs at the time of admission-temperature 98.1, pulse 120, respiratory 22 , blood pressure 136/88, SPO2 97% on room air Blood workup showed WBC 9.3, RBC 4.11, hemoglobin 10.4, hematocrit 31.7, MCV 77.1, platelet count 328, serum sodium 133, potassium 3.9, chloride 111, carbon DEXA 19, anion gap 13, BUN 12, creatinine 1.0, glucose 94. Lactic acid 0.5, calcium 9.3, AST 10, ALT 18, alkaline phosphatase 58, creatinine kinase 198, total protein 6.9, albumin 4.1. On physical exam -she was conscious, cooperative, oral cavity-moist mucous membrane, congested throat, neck supple, no lymphadenopathy, chest bilateral clear, heart S1-S2 tachycardia, abdomen distended, bowel sounds positive, on neurological examination bilateral lower extremity 2/5 power, upper extremity 3/ 5. Cerebellar sign Positive, left eye nystagmus positive. Assessment and plan - Sore throat possibly secondary to strep * She is having fever and sore throat she admits to criteria for centor. * We will do throat swab followed by throat culture * Will do blood cultures * We will start patient on tablet amoxicillin 500 mg 3 times a day * Start patient on IV fluids normal saline 75 cc/h Multiple sclerosis -complicated by urinary incontinence, generalized muscle stiffness, * We will continue all her medication * We will take neurologist opinion. Nurses were not able to mingo Second set of blood cultures. Diet -Regular diet CODE STATUS-full code DVT prophylaxis - Kai Cosme 02/03/18 0257: Attending MD Review Statement Attending Statement Attending MD Statement: examined this patient, discuss w/resident/PA/EXPORT FREIGHT MANAGER, agreed w/resident/PA/EXPORT FREIGHT MANAGER, reviewed EMR data (avail), reviewed images, amended to note Attending Assessment/Plan: CC: Body aches, weakness, sore throat PMH: MS, DVT/PE, migraine, HTN, urinary incontinence According to patient her mother and her goddaughter is sick with strep throat. Patient started to notice throat pain last evening, had intermittent mild cough with phlegm production. Today she noticed chills, cold body aches. Followed by 8 she was very weak and could not even walk a few steps. Patient endorses difficulty swallowing secondary to throat pain. She went to urgent care where she was prescribed azithromycin, throat swab was not obtained at that time. Later she followed up with her neurologist who suggested her to go to ER for possible admission. She denies any fever, no nausea, vomiting, shortness of breath, chest pain, chest tightness, urinary burning but she has increased frequency in urination and has baseline incontinence. She also feels that her right eye has blurry vision. Vitals: MAXIMUM TEMPERATURE in ER 100.6, tachycardic 120, respiration 22, blood pressure 136/88, saturating 97% on room air. On exam: A O 3, cooperative, distress secondary to pain, neck supple, JVD normal, no lymphadenopathy, mucosa moist, pharynx is congested, no dependent edema, no obvious skin rashes or inflammation CVS: S1-S2, RRR. RS: Clear to auscultate bilaterally. Abdomen: Soft, NT, ND, bowel sounds present. PERRLA, EOMI, no nystagmus, no APD, right upper extremity strength 4/5, left up for extremity strength 4/5, right lower extremity strength 3/5, left lower extremity strength 3/5, increased tone, reflexes could not be elicited, cerebellar signs sign normal. Peripheral perfusion and pulses normal Assessment and plan 27 year old female with extensive past medical history as mentioned above presented in ER for worsening weakness, body aches, lethargy thinking that she may have MS exacerbation. She also endorses throat pain, chills and had fever while in ER. She has decreased strength in all extremities, more so on lower extremities, increased tone, appears in distress secondary to pain. All worsening of MS symptoms could be secondary to infection. Suspect she may have strep throat given exposure, throat pain, pharyngeal congestion and nonsignificant cough. Other infections should be ruled out as well. Abx. We will hold off the IV steroids for now pending improvement in infection, as suggested by the neurologist. + Suspected strep throat, rule out other infections + Pseudo-relapse of MS secondary to infection + History of MS, DVT/PE, migraine, HTN, urinary incontinence - Admit to general medicine - Blood culture - UA urine culture - Strep throat and culture - Chest x-ray - Flu test - Continue gentle hydration - Serial neuro checks - Continue IV Unasyn - Follow neurology recommendations - Neurologic consult - Adequate pain control with oxycodone, tramadol, when necessary morphine, lidocaine patch - Continue all her home medications - Continue Eliquis
[2018-02-03] MEDS ORDERED: AMITRIPTYLINE H25 M2 PO (01:07)
[2018-02-03 02:00] VITALS: BP 134/78
[2018-02-03] MEDS ORDERED: ESZOPICLONE3 M1 PO (02:02)
[2018-02-03] MEDS ORDERED: IBUPROFEN800 M1 PO (02:08)
[2018-02-03] MEDS ORDERED: LYRICA150 M1 PO (02:10)
[2018-02-03] MEDS ORDERED: ROBAXIN-750750 M1 PO (02:13)
--- NOTE | 2018-02-03 02:58 | Admission Certification ---
Admission Certification Certification Statement - As attending physician, I certify that at the time of - admission, based on clinical presentation, severity of - symptoms, need for further diagnostic testing and - therapeutic interventions, and risk of adverse outcomes - without in-hospital treatment, in my clinical assessment, - this patient requires an acute hospital stay for a minimum - of two nights or longer. I have also considered psychsocial - factors such as support system, advanced age, financial - issues, cognitive issues, and failed out-patient treatments, - past re-admission history, safety of patient, and lack of - compliance as applicable. 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
[2018-02-03 06:26] VITALS: BP 128/80
--- NOTE | 2018-02-03 06:53 | PN- Housestaff ---
See Addendum Subjective Follow-up For: #Generalized pain and weakness #MS exacerbation #Hyperchloremic acidosis #GAS Subjective: Patient reports weakness and joint pains temporarily relieved with pain med. She denies CP, SOB, nausea, vomiting Review of Systems Constitutional: Reports: see HPI. Objective Last 24 Hrs of Vital Signs/I&O Vital Signs Date Time Temp Pulse Resp B/P B/P Pulse O2 O2 Flow FiO2 Mean Ox Delivery Rate 02/03 06 99.9 80 18 128/80 96 Room Air 02/03 0200 99.6 122 18 134/78 100 Room Air 02/03 0125 101.7 100 22 128/80 98 02/02 2142 100.6 118 130/82 100 Room Air 02/02 2034 131/84 02/02 1919 98.1 120 22 136/88 97 Intake & Output 02/03 0800 02/03 0000 02/02 1600 Intake Total 250 Output Total Balance 250 Intake, IV 250 Patient 191 lb 220 lb Weight Weight Bed scale Measurement Method Physical Exam General Appearance: Alert, Oriented X3, Cooperative, No Acute Distress Cardiovascular: Regular Rate, Normal S1, Normal S2, No Murmurs Lungs: Clear to Auscultation, Normal Air Movement Abdomen: Normal Bowel Sounds, Soft, No Tenderness Neurological: Decreased motor strength throughout Current Medications: Current Medications Sig/Angélica Start time Last Medication Dose Route Stop Time Status Admin Acetaminophen/ 1 TAB Q8P PRN 02/03 0215 AC Butalbital/Caffeine PO Amitriptyline HCl 25 MG Q12P PRN 02/03 0115 AC PO Amoxicillin 500 MG TID 02/03 900 AC PO Ampicillin Sodium/ 0 .STK-MED ONE 02/02 2151 DC Sulbactam Sodium .ROUTE Ampicillin Sodium/ 3,000 MG ONCE ONE 02/02 2130 DC 02/02 Sulbactam Sodium IV 02/02 2159 2152 Sodium Chloride 100 ML Apixaban 2.5 MG BID 02/03 900 CAN PO Apixaban 5 MG BID 02/03 900 AC PO Bupropion HCl 150 MG DAILY 02/03 900 AC PO Enoxaparin Sodium 40 MG DAILY 02/03 900 CAN SC Ergocalciferol 50,000 IU QSUN 02/04 900 AC PO Ibuprofen 800 MG Q8 02/03 06 AC 02/03 PO 0616 Lidocaine 1 PAT Q24 02/03 900 AC EXT Medroxyprogesterone 5 MG DAILY 02/03 09 AC Acetate PO Methocarbamol 750 MG BID PRN 02/03 0215 AC PO Morphine Sulfate 0 .STK-MED ONE 02/02 2150 DC .ROUTE Morphine Sulfate 4 MG ONCE ONE 02/02 2130 DC 02/02 IV 02/02 Morphine Sulfate 0 .STK-MED ONE 02/02 2014 DC .ROUTE Morphine Sulfate 4 MG ONCE ONE 02/02 1945 DC 02/02 IV 02/02 Omeprazole 40 MG DAILY AC 02/03 0700 AC 02/03 PO 0616 Oxybutynin Chloride 10 MG BID 02/03 09 AC PO Oxycodone/ 2 TAB Q4P PRN 02/03 011 AC 02/03 Acetaminophen PO 0616 Pantoprazole Sodium 40 MG DAILY 02/03 09 CAN IV Pantoprazole Sodium 40 MG DAILY 02/03 09 CAN IV Pregabalin 150 MG BID PRN 02/03 0215 AC PO Sodium Chloride 1,000 ML Q13H 02/03 0115 CAN IV Sodium Chloride 1,000 ML Q13H 02/03 0100 AC 02/03 IV 0217 Tizanidine HCl 4 MG BID PRN 02/02 2345 AC PO Topiramate 25 MG TID 02/03 09 AC PO Tramadol HCl 100 MG TID 02/03 09 AC PO Tramadol HCl 0 .STK-MED ONE 02/03 0104 DC PO Tramadol HCl 100 MG ONCE ONE 02/03 0100 DC 02/03 PO 02/03 010 0126 Verapamil HCl 180 MG DAILY 02/03 0900 AC PO Zolpidem Tartrate 5 MG AT BEDTIME NEED.. 02/03 021 AC PO Last 24 Hrs of Lab/Dani Results Last 24 Hrs of Labs/Mics: Laboratory Tests 02/03/18 0610: Sodium Pending, Potassium Pending, Chloride Pending, Carbon Dioxide Pending, Anion Gap Pending, BUN Pending, Creatinine Pending, BUN/Creatinine Ratio Pending , CBC w Diff Pending, WBC Pending, RBC Pending, Hgb Pending, Hct Pending, MCV Pending, MCH Pending, MCHC Pending, RDW Pending, Plt Count Pending, MPV Pending 02/03/18 0121: Total Beta HCG Cancelled 02/02/182234: Lactic Acid 1.1 02/02/182031: Anion Gap 13, Estimated GFR > 60, BUN/Creatinine Ratio 12.0, Glucose 94, Lactic Acid 0.5 L, Calcium 9.3, Total Bilirubin 0.3, AST 10 L, ALT 18, Alkaline Phosphatase 58, Creatine Kinase 128, Total Protein 6.9, Albumin 4.1, Globulin 2.8, Albumin/Globulin Ratio 1.5, Lipase 177, Total Beta HCG NEGATIVE, CBC w Diff MAN DIFF ORDERED, RBC 4.11 L, MCV 77.1 L, MCH 25.3 L, MCHC 32.8 L, RDW 17.9 H, MPV 9.3, Gran % 87.5 H, Lymphocytes % 4.5 L, Monocytes % 7.0, Eosinophils % 0.7, Basophils % 0.3, Absolute Granulocytes 8.1 H, Segmented Neutrophils 83 H, Band Neutrophils 2, Absolute Lymphocytes 0.4 L, Lymphocytes 6 L, Monocytes 8, Absolute Monocytes 0.6, Eosinophils 1, Absolute Eosinophils 0.1, Absolute Basophils 0, Platelet Estimate ADEQUATE, Hypochromic-Microcytic 2+, Anisocytosis 1+, Microcytic Cells 1+ Microbiology 02/03 115 BLOOD: Blood Culture - RECD 02/03 39 URINE ROUT: Urine Culture - COLB 02/03 39 BLOOD: Blood Culture - COLB Assessment/Plan Assessment: Ms. Smith is a 27-year-old woman with past medical history of progressive multiple sclerosis, urinary incontinence, DVT/pulmonary embolism on eliquis, GERD, migraines, hypertension and muscle spasm who presents to the ED with fever and generalized pain. Problem list: #Generalized pain and weakness #MS exacerbation #Hyperchloremic acidosis #GAS Plan: Await blood, urine and throat cultures to r/o infectious causes Await influenza test Rapid strep was negative (confirmed with lab) Chest x-ray to evaluate for possible pneumonia NS IVF at 50 mL per hour Continue Amoxicillin 500 TID for strep Neuro consult-Guarnaccia Avoid steroids Continue home meds Lyrica 150 twice a day, methocarbamol, bupropion, apixaban, lidocaine patch, oxybutynin, oxycodone, pantoprazole, tizanidine, topiramate, tramadol, verapamil, Fioricet, amitriptyline Diet: Heart healthy DVT ppx: Apixaban Code: Full Problem List: 1. Multiple sclerosis exacerbation Pain Ratin Pain Location: Diffused Pain Goal: Pain 4 or less Pain Plan: Oxycodone Tomorrow's Labs & Rationales: CBC, BEP
[2018-02-03 11:55] LABS: ABSOLUTE BASOPHIL COUNT 0 /CUMM (0.0-0.2); ABSOLUTE EOSINOPHIL COUNT 0.3 /CUMM (0.0-0.7); ABSOLUTE GRANULOCYTE CT 8.3 /CUMM (1.4-6.5); ABSOLUTE LYMPH COUNT 0.5 /CUMM (1.2-3.4); ABSOLUTE MONOCYTE COUNT 0.5 /CUMM (0.10-0.60); BASOPHIL % 0.3 % (0.0-2.0); EOSINOPHIL % 2.8 % (0-5); GRANULOCYTE % 85.9 % (42.2-75.2); HEMATOCRIT 29.1 % (37-47); MEAN CORPUSCULAR HGB 25.1 PG (27.0-31.0); MEAN CORPUSCULAR HGB CONC 32.5 G/DL (33.0-37.0); MEAN CORPUSCULAR VOLUME 77.1 FL (81.0-99.0); MEAN PLATELET VOLUME 10.4 FL (7.4-10.4); PLATELET COUNT 276 /CUMM (130-400); RBC DISTRIBUTION WIDTH 17.4 % (11.5-14.5); RED BLOOD CELL CT 3.77 /CUMM (4.20-5.40); WHITE BLOOD CELL COUNT 9.6 /CUMM (4.8-10.8)
[2018-02-03 14:33] VITALS: BP 136/70
--- NOTE | 2018-02-03 15:50 | RADIOLOGY REPORT ---
EXAMINATION: XR PORTABLE CHEST CLINICAL INFORMATION: Fever and sore throat. COMPARISON: Chest CT from 09/18/2015. TECHNIQUE: Portable frontal view of the chest was obtained. FINDINGS: Bilateral chest ports are in place terminating in the SVC and at the cavoatrial junction. The cardiomediastinal silhouette is normal. No airspace opacities or pleural effusions are seen. No osseous abnormality is evident. IMPRESSION: Clear lungs. No acute process.
[2018-02-03 22:48] VITALS: BP 110/80
[2018-02-04 06:23] VITALS: BP 124/70
--- NOTE | 2018-02-04 08:17 | PN- Housestaff ---
Jayne RODRIGUEZ,Wen 02/04/18 0817: Subjective Follow-up For: #Generalized pain and weakness #MS exacerbation #Hyperchloremic acidosis #GAS Subjective: Patient seen and examined at bedside. No overnight events. Patient says she feels more strong today. Denies sore throat, fever, chills, weakness, decreased sensation. Patient would like to talk to case management regarding visiting health aide/nurse to help with her at home. Review of Systems Constitutional: Reports: no symptoms, see HPI. Objective Last 24 Hrs of Vital Signs/I&O Vital Signs Date Time Temp Pulse Resp B/P B/P Pulse O2 O2 Flow FiO2 Mean Ox Delivery Rate 02/04 0926 100 129/70 02/04 0623 98.6 100 18 124/70 98 Room Air 02/03 2248 98.6 92 16 110/80 97 Room Air 02/03 1433 98.4 100 20 136/70 99 Intake & Output 02/04 1600 02/04 0800 02/04 0000 Intake Total 1000 900 Output Total 400 250 Balance 600 650 Intake, IV 600 800 Intake, Oral 400 100 Output, Urine 400 250 Physical Exam General Appearance: Alert, Oriented X3, Cooperative, No Acute Distress Current Medications: Current Medications Sig/Angélica Start time Last Medication Dose Route Stop Time Status Admin Acetaminophen/ 1 TAB Q8P PRN 02/03 021 AC Butalbital/Caffeine PO Amitriptyline HCl 25 MG Q12P PRN 02/03 0115 AC PO Amoxicillin 500 MG TID 02/03 900 AC 02/04 PO 0926 Apixaban 5 MG BID 02/03 900 AC 02/04 PO 0926 Bupropion HCl 150 MG DAILY 02/03 900 AC 02/04 PO 0925 Ergocalciferol 50,000 IU QSUN 02/04 09 AC 02/04 PO 0927 Ibuprofen 800 MG Q8 02/03 06 AC 02/04 PO 0538 Lidocaine 1 PAT Q24 02/03 900 AC 02/04 EXT 0927 Medroxyprogesterone 5 MG DAILY 02/03 900 AC 02/04 Acetate PO 0923 Methocarbamol 750 MG BID PRN 02/03 0215 AC PO Omeprazole 40 MG DAILY AC 02/03 0700 AC 02/04 PO 0538 Oxybutynin Chloride 10 MG BID 02/03 900 AC 02/04 PO 0926 Oxycodone/ 2 TAB Q4P PRN 02/03 0115 AC 02/04 Acetaminophen PO 0314 Potassium Chloride 40 MEQ ONCE ONE 02/03 1545 CAN PO 02/03 1546 Potassium Chloride 10 MEQ Q1H 02/03 1545 DC 02/03 IV 02/03 1646 1813 Pregabalin 150 MG BID PRN 02/03 0215 AC 02/03 PO 1219 Sodium Chloride 1,000 ML Q13H 02/03 0100 DC 02/04 IV 0616 Tizanidine HCl 4 MG BID PRN 02/02 2345 AC PO Topiramate 25 MG TID 02/03 0900 AC 02/04 PO 0925 Tramadol HCl 100 MG TID 02/03 0900 AC 02/04 PO 0934 Verapamil HCl 180 MG DAILY 02/03 09 AC 02/04 PO 0926 Zolpidem Tartrate 5 MG AT BEDTIME NEED.. 02/03 0215 AC PO Last 24 Hrs of Lab/Dani Results Last 24 Hrs of Labs/Mics: Laboratory Tests 02/04/18 0540: Anion Gap 8, Estimated GFR > 60, BUN/Creatinine Ratio 10.0, CBC w Diff NO MAN DIFF REQ, RBC 3.47 L, MCV 77.4 L, MCH 25.1 L, MCHC 32.5 L, RDW 17.4 H, MPV 10.0, Gran % 76.3 H, Lymphocytes % 8.5 L, Monocytes % 7.4, Eosinophils % 7.5 H, Basophils % 0.3, Absolute Granulocytes 5.2, Absolute Lymphocytes 0.6 L, Absolute Monocytes 0.5, Absolute Eosinophils 0.5, Absolute Basophils 0 02/03/18 1345: Urinalysis LIGHT H, Urine Color YEL, Urine Clarity HAZY H, Urine pH 6.0, Ur Specific [place] 1.025, Urine Protein NEG, Urine Ketones NEG, Urine Nitrite NEG, Urine Bilirubin NEG, Urine Urobilinogen 0.2, Ur Leukocyte Esterase TRACE H, Ur Microscopic SEDIMENT EXAMINED, Urine RBC 1-3, Urine WBC 5-10 H, Ur Epithelial Cells MOD H, Urine Bacteria FEW H, Urine Mucus FEW, Urine Hemoglobin SMALL H, Urine Glucose NEG Microbiology 02/03 1345 URINE ROUT: Urine Culture - RES Assessment/Plan Assessment: Ms. Smith is a 27-year-old woman with past medical history of progressive multiple sclerosis, urinary incontinence, DVT/pulmonary embolism on eliquis, GERD, migraines, hypertension and muscle spasm who presents to the ED with fever and generalized pain. Problem list: #Generalized pain and weakness #MS exacerbation #Hyperchloremic acidosis #GAS Chest x-ray February 03 IMPRESSION: Clear lungs. No acute process. Assessment and Plan: influenza test negative Rapid strep was negative (confirmed with lab)-patient is on Amoxil and 3 times a day for suspected strep throat. NS IVF at 50 mL per hour-we will discontinue IV fluids as the patient is able to tolerate oral feeds. Neuro consult-Noahcia. Avoid steroids Continue home meds Lyrica 150 twice a day, methocarbamol, bupropion, apixaban, lidocaine patch, oxybutynin, oxycodone, pantoprazole, tizanidine, topiramate, tramadol, verapamil, Fioricet, amitriptyline Diet: Heart healthy DVT ppx: Apixaban Code: Full Problem List: 1. MULTIPLE SCLEROSIS Pain Ratin Pain Location: none Pain Goal: Remain pain free Pain Plan: tylenol Tomorrow's Labs & Rationales: ryan Amos MD,Amir 02/04/18 1213: Attending MD Review Statement Attending Statement Attending MD Statement: examined this patient, discuss w/resident/PA/COVERAGE ANALYST, agreed w/resident/PA/COVERAGE ANALYST, discussed with family, reviewed EMR data (avail), discussed with nursing Attending Assessment/Plan: Pt seen and examined. Remains afebrile. OK to d/c IVF as pt eating fine. Switch to PO anbx for a total of 5 day course. Likely d/c in am --pt advised to f/u with her Neurologist as outpt
[2018-02-04 08:24] LABS: ABSOLUTE BASOPHIL COUNT 0 /CUMM (0.0-0.2); ABSOLUTE EOSINOPHIL COUNT 0.5 /CUMM (0.0-0.7); ABSOLUTE GRANULOCYTE CT 5.2 /CUMM (1.4-6.5); ABSOLUTE LYMPH COUNT 0.6 /CUMM (1.2-3.4); ABSOLUTE MONOCYTE COUNT 0.5 /CUMM (0.10-0.60); BASOPHIL % 0.3 % (0.0-2.0); EOSINOPHIL % 7.5 % (0-5); GRANULOCYTE % 76.3 % (42.2-75.2); HEMATOCRIT 26.8 % (37-47); MEAN CORPUSCULAR HGB 25.1 PG (27.0-31.0); MEAN CORPUSCULAR HGB CONC 32.5 G/DL (33.0-37.0); MEAN CORPUSCULAR VOLUME 77.4 FL (81.0-99.0); PLATELET COUNT 284 /CUMM (130-400); RBC DISTRIBUTION WIDTH 17.4 % (11.5-14.5); RED BLOOD CELL CT 3.47 /CUMM (4.20-5.40); WHITE BLOOD CELL COUNT 6.8 /CUMM (4.8-10.8)
[2018-02-04 14:50] VITALS: BP 118/66
[2018-02-04 22:12] VITALS: BP 126/60
[2018-02-05 06:43] VITALS: BP 110/70; BP 120/64
--- NOTE | 2018-02-05 07:57 | PN- Housestaff ---
Viral Valle 02/05/18 0757: Subjective Follow-up For: #Generalized pain and weakness #Hyperchloremic acidosis #GAS Subjective: Patient reports generalized pain and weakness improving. She was able to take a shower and ambulate around the room without assistance. Review of Systems Constitutional: Reports: see HPI. Objective Last 24 Hrs of Vital Signs/I&O Vital Signs Date Time Temp Pulse Resp B/P B/P Pulse O2 O2 Flow FiO2 Mean Ox Delivery Rate 02/05 0643 98.3 98 16 120/64 97 Room Air 02/04 2212 98.6 100 20 126/60 96 Room Air 02/04 1450 98.7 100 20 118/66 100 02/04 0926 100 129/70 Intake & Output 02/05 1600 02/05 0800 02/05 0000 Intake Total 500 500 Output Total 800 Balance 500 -300 Intake, IV 20 20 Intake, Oral 480 480 Output, Urine 800 Physical Exam General Appearance: Alert, Oriented X3, Cooperative, No Acute Distress Cardiovascular: Regular Rate, Normal S1, Normal S2 Lungs: Clear to Auscultation, Normal Air Movement Abdomen: Normal Bowel Sounds, Soft, No Tenderness Extremities: No Edema Current Medications: Current Medications Sig/Angélica Start time Last Medication Dose Route Stop Time Status Admin Acetaminophen/ 1 TAB Q8P PRN 02/03 0215 AC Butalbital/Caffeine PO Amitriptyline HCl 25 MG Q12P PRN 02/03 0115 AC PO Amoxicillin 500 MG TID 02/03 900 AC 02/04 PO 2101 Apixaban 5 MG BID 02/03 900 AC 02/04 PO 210 Bupropion HCl 150 MG DAILY 02/03 900 AC 02/04 PO 0925 Ergocalciferol 50,000 IU QSUN 02/04 09 AC 02/04 PO 0927 Ibuprofen 800 MG Q8 02/03 06 AC 02/05 PO 0619 Lidocaine 1 PAT Q24 02/03 900 AC 02/04 EXT 0927 Medroxyprogesterone 5 MG DAILY 02/03 900 AC 02/04 Acetate PO 0923 Methocarbamol 750 MG BID PRN 02/03 0215 AC PO Omeprazole 40 MG DAILY AC 02/03 0700 AC 02/05 PO 0619 Oxybutynin Chloride 10 MG BID 02/03 09 AC 02/04 PO 210 Oxycodone/ 2 TAB Q4P PRN 02/03 0115 AC 02/04 Acetaminophen PO 210 Pregabalin 150 MG BID PRN 02/03 0215 AC 02/03 PO 1219 Sodium Chloride 1,000 ML Q13H 02/03 0100 DC 02/04 IV 0616 Tizanidine HCl 4 MG BID PRN 02/02 2345 AC PO Topiramate 25 MG TID 02/03 09 AC 02/04 PO 210 Tramadol HCl 100 MG TID 02/03 0900 AC 02/04 PO 210 Verapamil HCl 180 MG DAILY 02/03 09 AC 02/04 PO 09 Zolpidem Tartrate 5 MG AT BEDTIME NEED.. 02/03 0215 AC 02/04 PO 2100 Assessment/Plan Assessment: Ms. Smith is a 27-year-old woman with past medical history of progressive multiple sclerosis, urinary incontinence, DVT/pulmonary embolism on eliquis, GERD, migraines, hypertension and muscle spasm who presents to the ED with fever and generalized pain. Problem list: #Generalized pain and weakness #Hyperchloremic acidosis #GAS Plan: Rapid strep was negative (confirmed with lab) Continue Amoxicillin 500 mg BID We will increase the Verapamil to 240 mg due to persistent tachycardia Neuro consult-Guarnaccia Avoid steroids Continue home meds Lyrica 150 twice a day, methocarbamol, bupropion, apixaban, lidocaine patch, oxybutynin, oxycodone, pantoprazole, tizanidine, topiramate, tramadol, verapamil, Fioricet, amitriptyline Diet: Heart healthy DVT ppx: Apixaban Code: Full Problem List: 1. Streptococcal pharyngitis 2. Joint pain 3. Chronic pain Pain Ratin Pain Location: Diffused Pain Goal: Pain 4 or less Pain Plan: oxycodone Tomorrow's Labs & Rationales: NONE Mercedes Pat MD 02/05/18 1141: Attending MD Review Statement Attending Statement Attending MD Statement: examined this patient, discuss w/resident/PA/TAPER OPERATOR, agreed w/resident/PA/TAPER OPERATOR, reviewed EMR data (avail), discussed with nursing, discussed with case mgmt, reviewed images, amended to note Attending Assessment/Plan: Patient seen and examined, overall doing well. She said that it joyce in her throat when she took orange juice. Patient is afebrile. Percocet helps with her pain. Upon reviewing her medications be noted that patient already on 2 muscle relaxants that included Robaxin as well as tizanidine. Also noted that she was tachycardic. Patient does take verapamil which we can increase the dose. Patient is otherwise medically stable for discharge. Should follow with Dr. Cosby as outpatient as well as PCP. She will be given oral antibiotics rx to complete the course.
[2018-02-05 08:47] VITALS: BP 120/64
--- NOTE | 2018-02-05 09:08 | Patient Discharge Instructions ---
Discharge Instructions General Discharge Information You were seen/treated for: Generalized weakness and pain You had these procedures: none Special Instructions: Follow up with Dr. Tillman within 1 week of discharge Follow up with your PCP-Dr. Chery within 1-2weeks of discharge Your Verapamil was increased from 180 mg to 240 mg Diet Continue normal diet: Yes Activity Other activity limits: As tolerated Acute Coronary Syndrome Inclusion Criteria At DC or during hospital stay patient has or had the following: ACS DIAGNOSIS No Discharge Core Measures Meds if any: Prescribed or Continued at Discharge Meds if any: NOT Prescribed or Continued at Discharge Congestive Heart Failure Inclusion Criteria At DC or during hospital stay patient has or had the following: CHF DIAGNOSIS No Discharge Core Measures Meds if any: Prescribed or Continued at Discharge Meds if any: NOT Prescribed or Continued at Discharge Cerebrovascular accident Inclusion Criteria At DC or during hospital stay patient has or had the following: CVA/TIA Diagnosis No Discharge Core Measures Meds if any: Prescribed or Continued at Discharge Meds if any: NOT Prescribed or Continued at Discharge Venous thromboembolism Inclusion Criteria VTE Diagnosis No VTE Type NONE VTE Confirmed by (Test) NONE Discharge Core Measures - Per Current guidelines, there needs to be overlap - treatment for the first 5 days of Warfarin therapy. - If discharged on Warfarin prior to 5 days of - overlap therapy, the patient will need to be - assessed for post discharge needs including - *Post discharge parental anticoagulation - *Warfarin and/or parental anticoagulation education - *Follow up date to check INR post discharge At least 5 days overlap therapy as Inpatient No Meds if any: Prescribed or Continued at Discharge Note: Overlap Therapy is Warfarin and Anticoagulant Meds if any: NOT Prescribed or Continued at Discharge
[2018-02-05] MEDS ORDERED: VERAPAMIL ER240 M1 PO ×2 (09:13→11:04)
[2018-02-05] MEDS ORDERED: AMOXICILLIN500 M2 PO ×2 (09:26→11:04)
[2018-02-05] MEDS ORDERED: OXYCODONE HCL10 M2 PO ×2 (10:47→10:49)
--- NOTE | 2018-02-05 12:07 | Discharge Summary ---
Visit Information Visit Dates Admission Date: 02/02/18 Discharge Date: 02/05/18 Hospital Course Course Attending Physician: Mercedes Pat MD Primary Care Physician: Miri RODRIGUEZ,Aldo Hernandez Hospital Course: Ms. Smith is a 27-year-old woman with past medical history of progressive multiple sclerosis, urinary incontinence, DVT/pulmonary embolism on eliquis, GERD, migraines, hypertension and muscle spasm who presents to the ED with fever and generalized pain. #Generalized pain and weakness It was suspected that her weakness was due to an infectious cause. Blood and urine cultures reported no growth. Her influenza and rapid strep were negative. Her chronic pain was controlled with Oxycodone, Tramadol and Lyrica #Acute pharyngitis Patient reported odynophagia and recent contact with strep positive family members. She was administered Amoxicillin 500 mg BID to complete a 10-day course #Tachycardia Her Verapamil was increased from 180 mg to 240 mg due to persistent tachycardia #Chronic medical conditions We continued her home meds Allergies: Coded Allergies: NO KNOWN ALLERGIES (09/18/15) Pertinent Lab Results: 02/03/18-0047 EXAM TYPE: RAD - XRY-PORTABLE CHEST XRAY IMPRESSION: Clear lungs. No acute process. Disposition Summary Disposition Principal Diagnosis: Generalized pain and weakness Acute pharyngitis Additional Diagnosis: as above Discharge Disposition: home or self care Discharge Instructions General Discharge Information Code Status: Full Code Patient's Diet: Regular Patient's Activity: As tolerated Follow-Up Instructions/Appts: Follow up with Dr. Tillman within 1 week of discharge Follow up with your PCP-Dr. Chery within 1-2weeks of discharge Your Verapamil was increased from 180 mg to 240 mg Medications at Discharge Discharge Medications: Stop taking the following medications: Verapamil HCl (Verapamil ER) 180 MG CAP24H.PEL ORAL DAILY Qty = 90 Continue taking these medications: Ergocalciferol (Vitamin D2) (Vitamin D2) 50,000 UNIT CAPSULE 1 Capsule ORAL EVERY MONDAY Qty = 4 Comments: NOT GIVEN Oxybutynin Chloride (Oxybutynin Chloride) 5 MG TABLET 2 Tablet ORAL TWICE DAILY Qty = 360 Comments: NOT GIVEN Topiramate (Topamax) 25 MG TABLET 1 Tablet ORAL THREE TIMES DAILY Comments: Last Taken: 02/05/18 Time: 9:00 am Tramadol HCl (Tramadol HCl) 50 MG TABLET 1 Tablet ORAL THREE TIMES DAILY Qty = 180 Comments: Last Taken: 02/05/18 Time: 8:47 am Apixaban (Eliquis) 5 MG TABLET 1 Tablet ORAL TWICE DAILY Comments: Last Taken: 02/05/18 Time: 8:47 am Ocrelizumab (Ocrevus) 300 MG/10 ML VIAL 300 Milligram INTRAVEN Q6M Qty = 20 Comments: NOT GIVEN Pantoprazole Sodium (Pantoprazole Sodium) 40 MG TABLET.DR 1 Tablet ORAL DAILY Qty = 90 Comments: Last Taken: 02/05/18 Time: 6:00 am po prilosec given while in hospital Bupropion HCl (Bupropion HCl Sr) 150 MG TABLET.ER 1 Tablet ORAL DAILY Qty = 90 Comments: Last Taken: 02/05/18 Time: 8:47 am Lidocaine (Lidocaine) 5 % ADH..PATCH 1 Patch On the skin As Directed as needed for PAIN Qty = 90 Comments: Last Taken: 02/05/18 Time: 8:47 am Medroxyprogesterone Acetate (Provera) 5 MG TABLET 1 Tablet ORAL As Directed as needed for MESNTRUAL CYCLE Qty = 90 Comments: Last Taken: 02/05/18 Time: 8:47 am Tizanidine HCl (Tizanidine HCl) 2 MG TABLET 1-2 Tablet ORAL TWICE DAILY as needed for MUSCLE SPASMS Qty = 120 Comments: NOT GIVEN Neomycin/Polymyxin B Sulf/Hc (Vawqkrad-Opuedivfc-Jc Ear Soln) 3.5 MG/ML-10,000 UNIT/ML-1 % SOLUTION 2-3 DROP OTIC As Directed as needed for ITCHING Comments: NOT GIVEN IN HOSPITAL Cholecalciferol (Vitamin D3) (Vitamin D) 2,000 UNIT TABLET 1 Tablet ORAL DAILY Qty = 30 Comments: NOT GIVEN Butalb/Acetaminophen/Caffeine (Pooape-Rlbwestb-Waml 50-325-40) 50 MG-325 MG-40 MG TABLET 1 Tablet ORAL EVERY 8 HOURS NEEDED as needed for HEADACHE Qty = 30 Comments: Last Taken: 02/05/18 Time: 8:47 am Amitriptyline HCl (Amitriptyline HCl) 25 MG TABLET 1 Tablet ORAL Every 12 hours as needed Comments: NOT GIVEN Eszopiclone (Eszopiclone) 3 MG TABLET 1 Tablet ORAL Every night as needed for insomnia Comments: NOT GIVEN Ibuprofen (Ibuprofen) 800 MG TABLET 1 Tablet ORAL EVERY 8 HOURS Comments: Last Taken: 02/05/18 Time: 06:19 am Pregabalin (Lyrica) 150 MG CAPSULE 1 Capsule ORAL TWICE DAILY as needed for back pain Comments: Last Taken: 02/03/18 Time: 12:19 PM Methocarbamol (Robaxin-750) 750 MG TABLET 1 Tablet ORAL TWICE DAILY as needed for back pain Comments: NOT GIVEN Oxycodone HCl (Oxycodone HCl) 10 MG TABLET 10 Milligram ORAL EVERY 4 HOURS NEEDED as needed for PAIN SCALE 4-6 ( MODERATE) Qty = 12 Comments: Last Taken: 02/05/18 Time: 10:55 am This prescription has been renewed Start taking the following new medications: Amoxicillin (Amoxicillin) 500 MG CAPSULE 500 Milligram ORAL THREE TIMES DAILY Qty = 21 No Refills Instructions: . Comments: Last Taken: 02/05/18 Time: 8:47 am Verapamil HCl (Verapamil ER) 240 MG TABLET.ER 1 Tablet ORAL DAILY Qty = 30 No Refills Instructions: . Comments: NOT GIVEN Copies To: Aldo Chery MD; Ronan Tillman MD Copies To: Aldo Chery MD; Ronan Tillman MD
== END 2018-02-05 13:11 | DRG 153 ==
LOC: ERH 19:01 → 2NA 23:43 → ERHI 23:43 → ENRESERV 02-03 00:20 → CANRESERV 02-03 00:20 → ENRESERV 02-03 00:30 → 2NA 02-03 01:48 → ENPENDDIS 02-05 10:50 → ENTRNSPT 02-05 12:54 → EDTRNSPTSTS 02-05 13:00 → EDTRNSPT 02-05 13:00 → 2NA 02-05 13:11 → CMPTRNSPT 02-05 13:18
PROVIDERS: Internal Medicine; Internal Medicine Adolescent Medicine; Student in an Organized Health Care Education/Training Program
DX: J02.9 Acute pharyngitis, unspecified (principal); E87.2 Acidosis; E87.8 Other disorders of electrolyte and fluid balance, not elsewhere classified; I05.0 Rheumatic mitral stenosis; G35 Multiple sclerosis; R32 Unspecified urinary incontinence; K21.9 Gastro-esophageal reflux disease without esophagitis; M62.838 Other muscle spasm; Z86.718 Personal history of other venous thrombosis and embolism; Z79.01 Long term (current) use of anticoagulants; G43.909 Migraine, unspecified, not intractable, without status migrainosus; R00.0 Tachycardia, unspecified; E66.9 Obesity, unspecified; Z68.33 Body mass index [BMI] 33.0-33.9, adult
CPT/HCPCS: 2NAP; ERO; 36415; 36592; 71045; 81001; 82436; 87040; 87086; 87804; 87804-59; 96374; 96375; 96376; J3490

== ENCOUNTER 2018-04-03 16:37 | Inpatient (IN) | payer OTHER ==
[~2018-04-03] VITALS: Ht 162.6 cm; Wt 90.8 kg
[~2018-04-03 16:37] MED LIST changes: +AMITRIPTYLINE H25 M2 PO; +AMOXICILLIN500 M2 PO; +ESZOPICLONE3 M1 PO; +IBUPROFEN800 M1 PO; +LYRICA150 M1 PO; +ROBAXIN-750750 M1 PO; +VERAPAMIL ER240 M1 PO
[2018-04-03 20:03] LABS: ABSOLUTE BASOPHIL COUNT 0 /CUMM (0.0-0.2); ABSOLUTE EOSINOPHIL COUNT 0.4 /CUMM (0.0-0.7); ABSOLUTE GRANULOCYTE CT 3.1 /CUMM (1.4-6.5); ABSOLUTE LYMPH COUNT 1.4 /CUMM (1.2-3.4); ABSOLUTE MONOCYTE COUNT 0.7 /CUMM (0.10-0.60); BASOPHIL % 0.4 % (0.0-2.0); EOSINOPHIL % 7.6 % (0-5); GRANULOCYTE % 55.1 % (42.2-75.2); HEMATOCRIT 29.4 % (37-47); MEAN CORPUSCULAR HGB 23.8 PG (27.0-31.0); MEAN CORPUSCULAR HGB CONC 32.4 G/DL (33.0-37.0); MEAN CORPUSCULAR VOLUME 73.6 FL (81.0-99.0); MEAN PLATELET VOLUME 9.5 FL (7.4-10.4); PLATELET COUNT 343 /CUMM (130-400); RBC DISTRIBUTION WIDTH 18.9 % (11.5-14.5); RED BLOOD CELL CT 3.99 /CUMM (4.20-5.40); WHITE BLOOD CELL COUNT 5.7 /CUMM (4.8-10.8)
--- NOTE | 2018-04-03 20:14 | ED GENERAL ADULT ---
History of Present Illness General Chief Complaint: General Adult Stated Complaint: PT HAS MS WAS TOLD TO COME IN BY PAIN&WEAKNESS Source: patient, family Exam Limitations: no limitations Vital Signs & Intake/Output Vital Signs & Intake/Output Vital Signs Date Time Temp Pulse Resp B/P B/P Pulse O2 O2 Flow FiO2 Mean Ox Delivery Rate 04/06 1345 98.2 110 18 126/76 97 Room Air 04/06 0646 98.4 99 20 115/80 99 Room Air ED Intake and Output 04/06 0000 04/05 1200 Intake Total 1720 500 Output Total 800 600 Balance 920 -100 Intake, IV 1020 Intake, Oral 700 500 Output, Urine 800 600 Allergies Coded Allergies: NO KNOWN ALLERGIES (09/18/15) Triage Note: 27F TO ED FOR WORSENING WEAKNESS IN LEGS, SHOULDER PAIN TO LEFT, AND TINGLING IN HANDS. REPORTS BLURRED VISION WITH EXACERBATION OF MS. SHE HAS BEEN IN BED FOR TWO WEAKS DUE TO SYMPTOMS. PARENTS ENCOURAGED HER TO COME TO ED AND THEY SPOKE TO HER DR WHO RECOMMENDED SHE COME IN FOR IV STEROIDS. Triage Nurses Notes Reviewed? yes Onset: Gradual Duration: week(s): Timing: constant : No Patient currently breastfeeds: No HPI: 27-year-old female with a history of MS, hypertension, and PE presenting with extremity weakness with the lower extremities greater than the upper extremities , and blurry vision over the past 2 weeks. Patient reports that symptoms are consistent with her usual MS exacerbations. She is currently followed by the MS center at [facility]. States that her MS doctor instructed her to come to the emergency department for admission and IV steroids. At baseline patient ambulates with a walker, states that she has still been able to ambulate with her walker, but that it has been increasingly difficult to do so, and therefore has been spending more time in bed. Denies fevers, headache, URI symptoms, cough, chest pain, shortness of breath, abdominal pain, nausea, vomiting, diarrhea, dysuria. (Velma Pavon) Reconcile Medications Amitriptyline HCl 25 MG TABLET 1 TAB PO Q12P headache (Reported) Amoxicillin 500 MG CAPSULE 500 MG PO TID Strep throat . Apixaban (Eliquis) 5 MG TABLET 1 TAB PO BID DVT/PE (Reported) Bupropion HCl (Bupropion HCl Sr) 150 MG TABLET.ER 1 TAB PO DAILY MENTAL HEALTH (Reported) Butalb/Acetaminophen/Caffeine (Jwxohc-Gkdmpcbn-Vksr 50-325-40) 50 MG-325 MG-40 MG TABLET 1 TAB PO Q8P PRN HEADACHE Cholecalciferol (Vitamin D3) (Vitamin D) 2,000 UNIT TABLET 1 TAB PO DAILY supplement Docusate Sodium 100 MG CAPSULE 100 MG PO BID PRN CONSTIPATION Ergocalciferol (Vitamin D2) (Vitamin D2) 50,000 UNIT CAPSULE 1 CAP PO QSUN SUPPLEMENT (Reported) Eszopiclone 3 MG TABLET 1 TAB PO QPM PRN insomnia (Reported) Ferrous Sulfate 325 MG (65 MG IRON) TABLET.DR 325 MG PO BID ANEMIA Ibuprofen 800 MG TABLET 1 TAB PO Q8 pain (Reported) Lidocaine 5 % ADH..PATCH 1 PAT TOP AD PRN PAIN (Reported) Medroxyprogesterone Acetate (Provera) 5 MG TABLET 1 TAB PO AD PRN MESNTRUAL CYCLE (Reported) Methocarbamol (Robaxin-750) 750 MG TABLET 1 TAB PO BID PRN back pain ( Reported) Neomycin/Polymyxin B Sulf/Hc (Dzteuoio-Zuazleury-De Ear Soln) 3.5 MG/ML-10,000 UNIT/ML-1 % SOLUTION 2-3 DROP OTIC AD PRN ITCHING (Reported) Ocrelizumab (Ocrevus) 300 MG/10 ML VIAL 300 MG IV Q6M MS (Reported) Oxybutynin Chloride 5 MG TABLET 2 TAB PO BID BLADDER (Reported) Oxycodone HCl 10 MG TABLET 10 MG PO Q4P PRN PAIN SCALE 4-6 (MODERATE) Pantoprazole Sodium 40 MG TABLET.DR 1 TAB PO DAILY GI (Reported) Polyethylene Glycol 3350 (Miralax) 17 GRAM/DOSE POWDER 17 GM PO DAILY PRN CONSTIPATION Pregabalin (Lyrica) 150 MG CAPSULE 1 CAP PO BID PRN back pain (Reported) Tizanidine HCl 2 MG TABLET 1-2 TAB PO BID PRN MUSCLE SPASMS (Reported) Topiramate (Topamax) 25 MG TABLET 1 TAB PO TID migraine (Reported) Tramadol HCl 50 MG TABLET 1 TAB PO TID PAIN (Reported) Verapamil HCl (Verapamil ER) 180 MG TABLET.ER 1 TAB PO DAILY HTN (Reported) (Carlos Story DO) Past History Travel History Traveled to [place] past 21 day No Medical History Any Pertinent Medical History? 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 No (Velma Pavon) Review of Systems Review of Systems Constitutional: Reports: no symptoms. EENTM: Reports: see HPI. Respiratory: Reports: no symptoms. Cardiovascular: Reports: no symptoms. GI: Reports: no symptoms. Genitourinary: Reports: no symptoms. Musculoskeletal: Reports: see HPI. Skin: Reports: no symptoms. Neurological/Psychological: Reports: no symptoms. Hematologic/Endocrine: Reports: no symptoms. Immunologic/Allergic: Reports: no symptoms. All Other Systems: Reviewed and Negative (Velma Pavon) Physical Exam Physical Exam General Appearance: well developed/nourished, no apparent distress, alert, awake Head: atraumatic, normal appearance Eyes: Bilateral: normal appearance, PERRL, EOMI. Neck: normal inspection Respiratory: normal breath sounds, lungs clear Cardiovascular: regular rate/rhythm Gastrointestinal: soft, non-tender Back: normal inspection Extremities: normal inspection Neurologic/Psych: awake, alert, oriented x 3, normal mood/affect, no sensory deficitis 5/5 motor strength against gravity decreased motor strength against resistance Skin: intact, normal color, warm/dry Core Measures ACS in differential dx? No CVA/TIA Diagnosis: No Sepsis Present: No Sepsis Focused Exam Completed? No (Velma Pavon) Progress Differential Diagnoses I considered the following diagnoses in my evaluation of the patient: [MS exacerbation versus infection versus metabolic, low concern for CVA] Plan of Care: Orders Procedure Date/time Status MISSING MEDICATION FORM 04/06 UNK Active Current Medications Sig/Angélica Start time Last Medication Dose Stop Time Status Admin Magnesium Hydroxide 30 ML ONE PRN 04/06 1500 AC (Milk Of Magnesia) Docusate Sodium 100 MG BID 04/05 1100 AC 04/06 (Colace) 2058 Polyethylene Glycol 17 GM DAILY 04/05 1100 AC 04/06 (Miralax) 09 Morphine Sulfate 2 MG Q4P PRN 04/05 0200 AC 04/06 (MORPHINE SULFATE) 2056 Apixaban 5 MG BID 04/04 09 AC 04/06 (Eliquis) 2058 Bupropion HCl 150 MG DAILY 04/04 09 AC 04/06 (Wellbutrin SR) 950 Ferrous Sulfate 325 MG TID 04/04 900 AC 04/06 (Feosol) 2058 Medroxyprogesterone 5 MG DAILY 04/04 900 AC 04/06 Acetate 0951 (Provera 2.5 MG Tab) Methylprednisolone 1,000 MG DAILY 04/04 09 AC 04/06 (Solu Medrol) 04/08 1100 0955 Dextrose/Water 1,000 ML (D5W 1000) Oxybutynin Chloride 10 MG BID 04/04 900 AC 04/06 (Ditropan) 2058 Verapamil HCl 180 MG DAILY 04/04 09 AC 04/06 (Isoptin Dw181is Tab 0953 (Verapamil Sr)) Omeprazole 40 MG DAILY AC 04/04 07 AC 04/06 (Prilosec) 0557 Tramadol HCl 50 MG Q6P PRN 04/04 0300 AC 04/06 (Ultram) 0954 Acetaminophen 650 MG Q6P PRN 04/04 0130 AC (Tylenol) Acetaminophen/ 1 TAB Q8P PRN 04/04 011 AC 04/06 Butalbital/Caffeine 0954 (Fioricet) Amitriptyline HCl 25 MG Q12P PRN 04/04 115 AC 04/04 (Elavil 25 Mg. 1216 Tablet) Lidocaine 1 PAT DAILY PRN 04/04 011 AC 04/04 (Lidoderm) 172 Tizanidine HCl 4 MG BID PRN 04/04 115 AC 04/05 (Zanaflex) 2145 Topiramate 25 MG TID 04/04 115 AC 04/06 (Topamax) 2058 Zolpidem Tartrate 5 MG AT BEDTIME NEED.. 04/04 115 AC 04/06 (Ambien) 2100 Laboratory Tests 04/06/18 0600: CBC w Diff NO MAN DIFF REQ, RBC 4.05 L, MCV 74.9 L, MCH 24.4 L, MCHC 32.5 L, RDW 19.1 H, MPV 10.1, Gran % 92.1 H, Lymphocytes % 6.4 L, Monocytes % 1.4 L, Eosinophils % 0.1, Basophils % 0, Absolute Granulocytes 16.7 H, Absolute Lymphocytes 1.2, Absolute Monocytes 0.3, Absolute Eosinophils 0, Absolute Basophils 0 Labs show anemia relatively at baseline. Patient given 1 g of Solu-Medrol. Attempted to reach the MS center 3 times by telephone and email without success. Discussed with Dr. Roberto and will admit to general medicine for MS exacerbation. Initial ED EKG: none (Velma Pavon) Departure Departure Disposition: STILL A PATIENT Condition: Stable Clinical Impression Primary Impression: Multiple sclerosis exacerbation Referrals: Miri RODRIGUEZ,Aldo Hernandez (PCP/Family) Departure Forms: Customer Survey General Discharge Information Admission Note Spoke With: Dino Roberto MD Documentation of Exam: Documentation of any treatments & extenuating circumstances including Concerns Regarding Discharge (functional status, medication knowledge or non-compliance, living conditions, etc.) that warrant an admission rather than observation: [IV steroids, neurology consult, physical therapy consult, hemodynamic monitoring] (Velma Pavon) Departure Prescriptions: Current Visit Scripts Ferrous Sulfate 325 MG PO BID #60 TAB Docusate Sodium 100 MG PO BID PRN CONSTIPATION #60 CAP Polyethylene Glycol 3350 (Miralax) 17 GM PO DAILY PRN CONSTIPATION #30 POW PA/TRANSLATION DIRECTOR Co-Sign Statement Statement: ED Attending supervision documentation- [] I saw and evaluated the patient. I have also reviewed all the pertinent lab results and diagnostic results. I agree with the findings and the plan of care as documented in the PA's/TRANSLATION DIRECTOR's documentation. [x] I have reviewed the ED Record and agree with the PA's/TRANSLATION DIRECTOR's documentation. [] Additions or exceptions (if any) to the PAs/TRANSLATION DIRECTOR's note and plan are summarized below: [] (Carlos Story DO) Critical Care Note Critical Care Note Critical Care Time: non-applicable (Velma Pavon)
--- NOTE | 2018-04-03 23:07 | History & Physical ---
General Information and HPI Allergies/Medications Allergies: Coded Allergies: NO KNOWN ALLERGIES (09/18/15) Home Med list Amitriptyline HCl 25 MG TABLET 1 TAB PO Q12P headache (Reported) Amoxicillin 500 MG CAPSULE 500 MG PO TID Strep throat . Apixaban (Eliquis) 5 MG TABLET 1 TAB PO BID DVT/PE (Reported) Bupropion HCl (Bupropion HCl Sr) 150 MG TABLET.ER 1 TAB PO DAILY MENTAL HEALTH (Reported) Butalb/Acetaminophen/Caffeine (Yyvhtx-Nqsfmfti-Dcrm 50-325-40) 50 MG-325 MG-40 MG TABLET 1 TAB PO Q8P PRN HEADACHE Cholecalciferol (Vitamin D3) (Vitamin D) 2,000 UNIT TABLET 1 TAB PO DAILY supplement Ergocalciferol (Vitamin D2) (Vitamin D2) 50,000 UNIT CAPSULE 1 CAP PO QSUN SUPPLEMENT (Reported) Eszopiclone 3 MG TABLET 1 TAB PO QPM PRN insomnia (Reported) Ibuprofen 800 MG TABLET 1 TAB PO Q8 pain (Reported) Lidocaine 5 % ADH..PATCH 1 PAT TOP AD PRN PAIN (Reported) Medroxyprogesterone Acetate (Provera) 5 MG TABLET 1 TAB PO AD PRN MESNTRUAL CYCLE (Reported) Methocarbamol (Robaxin-750) 750 MG TABLET 1 TAB PO BID PRN back pain ( Reported) Neomycin/Polymyxin B Sulf/Hc (Kguifmes-Nohdnijho-By Ear Soln) 3.5 MG/ML-10,000 UNIT/ML-1 % SOLUTION 2-3 DROP OTIC AD PRN ITCHING (Reported) Ocrelizumab (Ocrevus) 300 MG/10 ML VIAL 300 MG IV Q6M MS (Reported) Oxybutynin Chloride 5 MG TABLET 2 TAB PO BID BLADDER (Reported) Oxycodone HCl 10 MG TABLET 10 MG PO Q4P PRN PAIN SCALE 4-6 (MODERATE) Pantoprazole Sodium 40 MG TABLET.DR 1 TAB PO DAILY GI (Reported) Pregabalin (Lyrica) 150 MG CAPSULE 1 CAP PO BID PRN back pain (Reported) Tizanidine HCl 2 MG TABLET 1-2 TAB PO BID PRN MUSCLE SPASMS (Reported) Topiramate (Topamax) 25 MG TABLET 1 TAB PO TID migraine (Reported) Tramadol HCl 50 MG TABLET 1 TAB PO TID PAIN (Reported) Verapamil HCl (Verapamil ER) 240 MG TABLET.ER 1 TAB PO DAILY Heart . 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 parent Services at Home: None Primary Language: Hungarian Illicit Drug Use: marijuana Functional Ability ADLs Independent: eating, toileting, bathing. Needs Assist: dressing. Ambulation: walker IADLs Needs Assist: transportation. Core Measures/Misc (06/04) Sepsis (View protocol) Sepsis Present: No If YES complete Sepsis Event Note If YES complete Sepsis Event Note
--- NOTE | 2018-04-04 00:10 | History & Physical ---
Cheri Darnelli 04/04/18 0008: General Information and HPI MD Statement: I have seen and personally examined JUDY ALBA and documented this H&P. The patient is a 27 year old F who presented with a patient stated chief complaint of []. Source of Information: patient Exam Limitations: no limitations History of Present Illness: 27 yo Female with past medical history of Multiple sclerosis, hypertension, migraine, depression and DVT/Pulmonary embolism presents to the ER with excaerbation of MS. She first noticed worsening of her symptoms one and a half weeks ago but passed it off assuming it is because of the hot weather. She has had severe headaches, new onset and progresisvely worsening weakness in her legs and worsening of pain in her shoulder and arms, not accomapanied by any numbness or tingling. She has also noticed blurring in her vision which but denies any eye pain. She has been following up with her neurologist regularly and undergoes plasmapheresis once every month. She has no other symptoms and is not steroid dependant at baseline. She stopped taking Verapamil for her hypertension a month ago as she thinks her 'blood pressure numbers are great' when she visits her doctors' offices. Allergies/Medications Allergies: Coded Allergies: NO KNOWN ALLERGIES (09/18/15) Home Med list Amitriptyline HCl 25 MG TABLET 1 TAB PO Q12P headache (Reported) Apixaban (Eliquis) 5 MG TABLET 1 TAB PO BID DVT/PE (Reported) Bupropion HCl (Bupropion HCl Sr) 150 MG TABLET.ER 1 TAB PO DAILY MENTAL HEALTH (Reported) Butalb/Acetaminophen/Caffeine (Ernpmw-Wdysdnxl-Yqfh 50-325-40) 50 MG-325 MG-40 MG TABLET 1 TAB PO Q8P PRN HEADACHE Cholecalciferol (Vitamin D3) (Vitamin D) 2,000 UNIT TABLET 1 TAB PO DAILY supplement Docusate Sodium 100 MG CAPSULE 100 MG PO BID PRN CONSTIPATION . Ergocalciferol (Vitamin D2) (Vitamin D2) 50,000 UNIT CAPSULE 1 CAP PO QSUN SUPPLEMENT (Reported) Eszopiclone 3 MG TABLET 1 TAB PO QPM PRN insomnia (Reported) Ferrous Sulfate 325 MG (65 MG IRON) TABLET.DR 325 MG PO BID ANEMIA . Ibuprofen 800 MG TABLET 1 TAB PO Q8 pain (Reported) Lidocaine 5 % ADH..PATCH 1 PAT TOP AD PRN PAIN (Reported) Medroxyprogesterone Acetate (Provera) 5 MG TABLET 1 TAB PO AD PRN MESNTRUAL CYCLE (Reported) Methocarbamol (Robaxin-750) 750 MG TABLET 1 TAB PO BID PRN back pain ( Reported) Neomycin/Polymyxin B Sulf/Hc (Supkctlh-Syvikpclt-Pk Ear Soln) 3.5 MG/ML-10,000 UNIT/ML-1 % SOLUTION 2-3 DROP OTIC AD PRN ITCHING (Reported) Ocrelizumab (Ocrevus) 300 MG/10 ML VIAL 300 MG IV Q6M MS (Reported) Oxybutynin Chloride 5 MG TABLET 2 TAB PO BID BLADDER (Reported) Oxycodone HCl 10 MG TABLET 10 MG PO Q4P PRN PAIN SCALE 4-6 (MODERATE) Pantoprazole Sodium 40 MG TABLET.DR 1 TAB PO DAILY GI (Reported) Polyethylene Glycol 3350 (Miralax) 17 GRAM/DOSE POWDER 17 GM PO DAILY PRN CONSTIPATION . Pregabalin (Lyrica) 150 MG CAPSULE 1 CAP PO BID PRN back pain (Reported) Tizanidine HCl 2 MG TABLET 1-2 TAB PO BID PRN MUSCLE SPASMS (Reported) Topiramate (Topamax) 25 MG TABLET 1 TAB PO TID migraine (Reported) Tramadol HCl 50 MG TABLET 1 TAB PO TID PAIN (Reported) Verapamil HCl (Verapamil ER) 180 MG TABLET.ER 1 TAB PO DAILY HTN (Reported) Past History Travel History Traveled to [place] past 21 day No Medical History Neurological: migraine, multiple sclerosis EENT: NONE Cardiovascular: hypertension Respiratory: pulmonary embolism Gastrointestinal: GERD Hepatic: NONE Renal: urinary incontinence Musculoskeletal: muscle spasms Psychiatric: NONE Endocrine: NONE Blood Disorders: PE Cancer(s): NONE OR FIRST ASSIST REGISTERED NURSE/Reproductive: NONE History of MRSA: No History of VRE: No History of CDIFF: No Surgical History Surgical History: appendectomy Past Family/Social History Family History Relations & Conditions if any Relation not specified for: FH: hypertension FH: lung cancer FHx: diabetes mellitus Psychosocial History Who Do You Live With? parent Services at Home: None Primary Language: Iranian Illicit Drug Use: denies illicit drug use (medical marijuana), marijuana Functional Ability ADLs Independent: eating, toileting, bathing. Needs Assist: dressing. Ambulation: walker IADLs Needs Assist: transportation. Review of Systems Review of Systems Constitutional: Reports: weakness. EENTM: Reports: blurred vision, visual changes. Denies: eye pain. Cardiovascular: Reports: no symptoms. Respiratory: Reports: no symptoms. GI: Reports: no symptoms. Genitourinary: Reports: no symptoms. Musculoskeletal: Reports: back pain, joint pain, muscle pain. Skin: Reports: no symptoms. Neurological/Psychological: Reports: depressed, headache, weakness. Exam & Diagnostic Data Last 24 Hrs of Vital Signs/I&O Vital Signs Date Time Temp Pulse Resp B/P B/P Pulse O2 O2 Flow FiO2 Mean Ox Delivery Rate 04/04 0108 97.9 78 18 121/64 99 Room Air 04/03 2256 97.6 86 20 122/65 98 Room Air 04/03 2023 97.8 85 18 117/69 97 Room Air 04/03 1644 98.3 101 18 135/83 99 Room Air Intake & Output 04/04 0800 04/04 0000 04/03 1600 Intake Total 1008 Output Total Balance 1008 Intake, IV 1008 Patient 180 lb Weight Physical Exam General Appearance Alert, Oriented X3, Cooperative, Mild Distress Skin No Rashes, No Breakdown, No Significant Lesion HEENT Atraumatic, PERRLA, EOMI, Mucous Membr. moist/pink Neck Supple Cardiovascular Regular Rate, Normal S1, Normal S2, No Murmurs Lungs Clear to Auscultation, Normal Air Movement Abdomen Normal Bowel Sounds, Soft, No Tenderness Neurological Normal Tone, Sensation Intact, strength 5/5 in upper extremities 4/ 5 in lowe extremities Extremities No Clubbing, No Cyanosis, No Edema Assessment/Plan Assessment: This is a 27 yo young woman with PMH significant for Multiple Sclerosis, hypertension, migraine, depression, and DVT/PE, presents to the ER with an acute excaerbation of MS. She has blurirng of visoin and acute onset of progressive weakness in her legs. She denies any eye pain, numbness or tingiling,however. She also complains of shoulderm arm and back pain as a part of her chronic pain syndrome. She was advised by her neurologist to check into the hospital for a course of iv steroids for her MS exacerbation. We are admitting her to the floors due to the following problems: 1.Exacerbation of MS -Patient compalaing of new onset progressive bilateral lower extremity weakness along with blurirng of vision -Solu Medrol 1000mg daily -Consult with patient's current neurologist -MENDOZA nieves 2. Chronic pain symdrome -patient complain sof severe debilitating pain in her shoulders, arms and back -continue home pain medications 3. Migraine -Patient complains of worsening migraine headaches for a week -Continue her home meds for migraine -No other active intervention at this time 4. Depression -Patient chronically depressed and takes Bupropion for it -Continue home meds -No active intervention at this time 5. Hypertension -Patient has diagnosed hypertension -She stopped taking Verapamil a month ago - Her Blood pressure in the hospital has been essentially normal - Restart Verapamil and monitor blood pressure closely Chronic DVT prophylaxis; continue Eliquis FULL CODE As Ranked By This Provider Problem List: 1. Lower extremity weakness 2. Exacerbation of multiple sclerosis 3. Lower back pain 4. Migraine 5. Multiple sclerosis exacerbation Core Measures/Misc (06/04) Sepsis (View protocol) Sepsis Present: No If YES complete Sepsis Event Note If YES complete Sepsis Event Note Dino Roberto MD 04/04/18 0018: Core Measures/Misc (06/04) Sepsis (View protocol) If YES complete Sepsis Event Note If YES complete Sepsis Event Note Attending MD Review Statement Attending Statement Attending MD Statement: examined this patient, discuss w/resident/PA/INSPECTOR GOLF BALL, agreed w/resident/PA/INSPECTOR GOLF BALL, reviewed EMR data (avail), discussed with nursing, amended to note Attending Assessment/Plan: -year-old female with history of multiple sclerosis, DVT/pulmonary embolism on anticoagulation with Eliquis, chronic microcytic anemia, hypertension, chronic pain syndrome. Presents to the emergency room with complaints of progressive weakness. She reports that symptoms are similar to previous exacerbations of her multiple sclerosis. She gives no specific complaints other than generalized weakness. in the emergency room she was found afebrile hemodynamically stable. No acute pathology noted on laboratory data. She was given a dose of Solu- Medrol and attempts were made to discharge the patient home from the emergency room however she refused and insisted to be hospitalized. Attempts were made unsuccessfully to contact neurologist to discuss the plan of care. On examination she is alert and oriented 3 not in any acute distress. Eyes for over 5 bilateral upper extremities and 3/5 bilateral lower extremities. Problems: 1. Acute exacerbation of multiple sclerosis. 2. Chronic pain syndrome 3. Chronic microcytic anemia 4. History of DVT/pulmonary embolism. Plan: Admit to the inpatient medical service. Solu-Medrol 1 g IV daily for a total of 5 doses. Consultation with the patient's neurology service. Continue home pain management regimen. Physical therapy consultation. Continue chronic anticoagulation therapy. Check iron profile and begin patient on iron supplementation if needed. Skyler RODRIGUEZ,Jana 04/04/18 0035: Core Measures/Misc (06/04) Acute Coronary Syndrome ACS Diagnosis: No Congestive Heart Failure Congestive Heart Failure Diagnosis No Cerebrovascular Accident CVA/TIA Diagnosis: No VTE (View Protocol) VTE Risk Factors Age>40 No Mechanical VTE Prophylaxis d/t N/A MechProphylax Ordered No VTE Pharm Prophylaxis d/t NA PharmProphylax ordered Sepsis (View protocol) If YES complete Sepsis Event Note If YES complete Sepsis Event Note Resident Review Statement Resident Statement: examined this patient, discussed with pr internship, agreed with pr internship Other Findings: Ms. Alba is a 27 -year-old lady with past medical history significant for MS (on Cardizem and plasmapheresis), migraine headaches, PE, GERD, and Urinary incontinence who was sent in by her neurologist for IV steroids for her MS exacerbation. Patient has been having weakness in her bilateral upper and lower extremities, headache and blurred vision for the past 1.5 weeks. She attributed the symptoms to warm weather, as her symptoms are always present Vizcarra but yesterday her symptoms got worse and she decided on her neurologist asked her to go to the ER for IV steroid administration. She uses a walker to ambulate at home. She also reports pain in her lower back which is chronic and left shoulder. Denies any fever/chills, cough, chest pain, shortness of breath, palpitations, abdominal pain, diarrhea/constipation or nausea/vomiting. She gets locally summa is every 6 months and has been on it for the past 1 year. Her plasmapharesis is scheduled once every month for the past 2 yrs and she is due for her next session at the end of this month. Vitals on admission were Temp 98.3, HR 101, RR 18, BP 135/83 and O2 sats 99% on Room Air. On Physical Exam sh has 4/5 strenght in bilateral lower extremities, otherwise normal physcal exam. Labs significant for H&H of 9.5/29.4, RDW 18.9, BUN/ Cr 14/1.1, Blood Glucose 100. Problem List; 1. MS Exacerbation. 2. Chronic Back pain 3. Other chronic medical conditions. - Admit the Patient to [facility] Floor - Start the Patient on IV Solumedrol 1 gm daily - Neuro Consult with Dr. Schuster. - Pain managment; Patient asking for Toradol but given on IV high dose steroid pt is at high risk of GI Bleed. Will keep her on tramadol as needed. - PT Eval. - Continue her home medications. DVT Prophylaxis; ALPS and ELiquis Patient is Full Code
[2018-04-04] MEDS ORDERED: VERAPAMIL ER180 M1 PO (01:16)
[2018-04-04 06:02] LABS: ABSOLUTE BASOPHIL COUNT 0 /CUMM (0.0-0.2); ABSOLUTE EOSINOPHIL COUNT 0 /CUMM (0.0-0.7); ABSOLUTE GRANULOCYTE CT 4.9 /CUMM (1.4-6.5); ABSOLUTE LYMPH COUNT 0.7 /CUMM (1.2-3.4); ABSOLUTE MONOCYTE COUNT 0 /CUMM (0.10-0.60); BASOPHIL % 0 % (0.0-2.0); EOSINOPHIL % 0 % (0-5); MEAN CORPUSCULAR HGB 23.9 PG (27.0-31.0); MEAN CORPUSCULAR HGB CONC 32.7 G/DL (33.0-37.0); MEAN PLATELET VOLUME 9.5 FL (7.4-10.4); PLATELET COUNT 339 /CUMM (130-400); RBC DISTRIBUTION WIDTH 18.6 % (11.5-14.5); WHITE BLOOD CELL COUNT 5.6 /CUMM (4.8-10.8)
[2018-04-04 06:03] LABS: GRANULOCYTE % 88.2 % (42.2-75.2)
--- NOTE | 2018-04-04 08:43 | PN- Housestaff ---
Ryan North 04/04/18 0843: Subjective Follow-up For: MS Exacerbation Subjective: Patient seen and examined at bedside in the emergency department with medical student. Patient states that she has had 1-1/2 week history of blurry vision, headaches, lethargy. Patient states that she has had flares in the past, and the usually come on the summer. Patient states that she was sent in by Ronan Tillman MD after she called and said that she thought she was having a flare. She denied fevers/chills/night sweats/chest pain/abdominal pain/lower extremity edema. She has a neurogenic bladder, and so she is incontinent at baseline. She also uses a walker and a wheelchair to ambulate at home, and states that she has not had any trouble ambulating during this flare. Review of Systems Constitutional: Reports: see HPI. Objective Last 24 Hrs of Vital Signs/I&O Vital Signs Date Time Temp Pulse Resp B/P B/P Pulse O2 O2 Flow FiO2 Mean Ox Delivery Rate 04/04 0955 98.0 80 20 130/76 98 Room Air 04/04 0858 97.5 91 20 140/85 04/04 0558 97.6 89 18 136/86 97 Room Air 04/04 0108 97.9 78 18 121/64 99 Room Air 04/03 2256 97.6 86 20 122/65 98 Room Air 04/03 2023 97.8 85 18 117/69 97 Room Air 04/03 1644 98.3 101 18 135/83 99 Room Air Intake & Output 04/04 1600 04/04 0800 04/04 0000 Intake Total 1008 Output Total Balance 1008 Intake, IV 1008 Patient 180 lb 180 lb Weight Weight Reported by Patient Measurement Method Physical Exam General Appearance: Alert, Oriented X3, Cooperative, No Acute Distress Skin: No Rashes Skin Temp/Moisture Exam: Warm/Dry Cardiovascular: Regular Rate, Normal S1, Normal S2 Lungs: Clear to Auscultation, Normal Air Movement Abdomen: Soft, No Tenderness Neurological: Normal Speech, Cranial Nerves 3-12 NL, ULE 4/5 to flexion and extension, 5/5 in all other distal extremities Extremities: No Edema Current Medications: Current Medications Sig/Angélica Start time Last Medication Dose Route Stop Time Status Admin Acetaminophen 0 .STK-MED ONE 04/04 0902 DC PO Acetaminophen 650 MG Q6P PRN 04/04 0130 AC PO Acetaminophen/ 1 TAB Q8P PRN 04/04 0115 AC 04/04 Butalbital/Caffeine PO 0406 Amitriptyline HCl 25 MG Q12P PRN 04/04 0115 AC 04/04 PO 1216 Apixaban 5 MG BID 04/04 0900 AC 04/04 PO 0858 Bupropion HCl 150 MG DAILY 04/04 0900 AC 04/04 PO 0858 Enoxaparin Sodium 40 MG DAILY 04/04 0900 CAN SC Ferrous Sulfate 325 MG TID 04/04 0900 AC 04/04 PO 0915 Ketorolac 0 .STK-MED ONE 04/04 0143 DC Tromethamine .ROUTE Ketorolac 15 MG Q6P PRN 04/04 0130 DC 04/04 Tromethamine IV 0145 Ketorolac 0 .STK-MED ONE 04/03 2102 DC Tromethamine .ROUTE Ketorolac 30 MG ONCE ONE 04/03 2100 DC 04/03 Tromethamine IV 04/03 2101 2106 Lidocaine 1 PAT DAILY PRN 04/04 0115 AC TOP Medroxyprogesterone 5 MG DAILY 04/04 0900 AC 04/04 Acetate PO 0858 Methylprednisolone 1,000 MG DAILY 04/04 0900 AC 04/04 Dextrose/Water 1,000 ML IV 04/08 1100 0858 Methylprednisolone 1,000 MG ONCE ONE 04/03 2015 DC 04/03 Dextrose/Water 1,000 ML IV 04/03 2215 2047 Morphine Sulfate 0 .STK-MED ONE 04/04 1201 DC .ROUTE Morphine Sulfate 2 MG Q4P PRN 04/04 0130 AC 04/04 IV 1216 Omeprazole 40 MG DAILY AC 04/04 0700 AC 04/04 PO 0616 Omeprazole 0 .STK-MED ONE 04/04 0615 DC PO Oxybutynin Chloride 10 MG BID 04/04 0900 AC 04/04 PO 0858 Oxycodone HCl 10 MG Q6 PRN 04/04 0115 DC PO Tizanidine HCl 4 MG BID PRN 04/04 0115 AC PO Topiramate 25 MG TID 04/04 0115 AC 04/04 PO 0858 Tramadol HCl 50 MG Q6P PRN 04/04 0300 AC PO Verapamil HCl 180 MG DAILY 04/04 0900 AC 07/18 PO 0858 Zolpidem Tartrate 5 MG AT BEDTIME NEED.. 04/04 0115 AC PO Last 24 Hrs of Lab/Dani Results Last 24 Hrs of Labs/Mics: Laboratory Tests 04/04/18 0555: CBC w Diff MAN DIFF ORDERED, RBC 4.10 L, MCV 73.0 L, MCH 23.9 L, MCHC 32.7 L , RDW 18.6 H, MPV 9.5, Gran % 88.2 H, Lymphocytes % 11.7 L, Monocytes % 0.1 L, Eosinophils % 0, Basophils % 0, Absolute Granulocytes 4.9, Absolute Lymphocytes 0.7 L, Absolute Monocytes 0 L, Absolute Eosinophils 0, Absolute Basophils 0, Platelet Estimate ADEQUATE, Polychromasia 1+, Hypochromic- Microcytic 1+, Anisocytosis 1+, Schistocytes 1+ 04/03/182050: Urine Color YEL, Urine Clarity CLEAR, Urine pH 6.5, Ur Specific Barry 1.010, Urine Protein NEG, Urine Ketones NEG, Urine Nitrite NEG, Urine Bilirubin NEG, Urine Urobilinogen 0.2, Ur Leukocyte Esterase NEG, Ur Microscopic EXAM NOT REQUIRED, Urine Hemoglobin NEG, Urine Glucose NEG, Urine Test NEGATIVE 04/03/18 1950: Anion Gap 11, Estimated GFR 59 L, BUN/Creatinine Ratio 12.7, Glucose 100 H, Calcium 9.4, Iron 24 L, TIBC 370, Ferritin 4.8 L, Total Bilirubin 0.2, AST 14, ALT 25, Alkaline Phosphatase 43, Total Protein 6.7, Albumin 4.0, Globulin 2.7, Albumin/Globulin Ratio 1.5, CBC w Diff NO MAN DIFF REQ, RBC 3.99 L, MCV 73.6 L , MCH 23.8 L, MCHC 32.4 L, RDW 18.9 H, MPV 9.5, Gran % 55.1, Lymphocytes % 25.3, Monocytes % 11.6 H, Eosinophils % 7.6 H, Basophils % 0.4, Absolute Granulocytes 3.1, Absolute Lymphocytes 1.4, Absolute Monocytes 0.7 H, Absolute Eosinophils 0.4, Absolute Basophils 0 Assessment/Plan Assessment: Ms Smith is a 27yo F with past medical history of progressive multiple sclerosis relapsing remitting per patient, urinary incontinence secondary to neurogenic bladder, DVT/pulmonary embolism on Eliquis, GERD, migraines, hypertension, muscle spasm, chronic pain syndrome, who comes in with a 1-1/2 week history of progressive weakness, headaches, blurred vision, who states that this is similar to her previous flares of MS, admitted for a flare of multiple sclerosis. #Multiple Sclerosis Flare at 8:00pm in the emergency department on April 03, 1 g today April 04. incontinence secondary to neurogenic bladder, and so uses a wheelchair to get to the bathroom as she leaks otherwise. States she has had this for over 15 years. Currently denies any functional limitations, although states she is weak. course. States that if there is significant clinical improvement, can discharge earlier prior to completion of 5 days of Solu-Medrol. upper extremity to flexion and extension. #Chronic pain syndrome pain seeking behavior, although not experienced during my clinical interview. Did request Toradol overnight for shoulder pain. Is currently on tramadol as well as pain pathway. #Microcytic anemia #Hypertension #GERD #Migraines IV access DVT prophylaxis Tolerating regular diet PT evaluation: Will see if patient can ambulate at baseline, will hold off on PT eval for now. If patient cannot ambulate with the nurse, will contact PT as patient will be below baseline functioning. Problem List: 1. MULTIPLE SCLEROSIS Pain Ratin Pain Location: na Pain Goal: Pain 4 or less Pain Plan: pathway, avoid opiates unless necessary Tomorrow's Labs & Rationales: Ignacio Sanders 04/04/18 1205: Attending MD Review Statement Attending Statement Attending MD Statement: examined this patient, discuss w/resident/PA/CRM CONSULTANT, agreed w/resident/PA/CRM CONSULTANT, discussed with family, reviewed EMR data (avail), discussed with nursing, discussed with case mgmt, reviewed images, amended to note Attending Assessment/Plan: Patient admitted here for progressive weakness and blurriness of vision from exacerbation of MS. Patient emailed her neurologist Dr German and he sent her to ER for iv steroids. Pateint with n obvious triggers including infections. Plan will be continue with iv steroids high dose. Continue supporitve care. Continue home pain meds. Provide pain control. Follow Dr German recommendations.
--- NOTE | 2018-04-04 11:11 | PN- Student ---
Subjective Subjective: CC: Exaceration of Multiple Sclerosis HPI: 27 y/o AA female with a history of MS for 15 years, Depression, Migraines, DVT/PE, HTN, and Neurogenic bladder presents with new onset and progressive bilateral leg weakness, pain in shoulders and arms bilaterally, and blurred vision for the past two weeks. Patient denies numbness, tingling, and eye pain. Advised by outpatient Neurologist, Dr. Tillman, to come to the hospital for a course of IV steroids. Patient was interviewed and examined at bedside in the ER this morning by both myself and Dr. North. Patient stated that "she gets worse in the summer" and that she has been dealing with MS for 15 years. Patient also stated that she has "trouble" with her left side of her body as well as with bladder control. Objective Objective: Vitals: Temp: 97F; Oral B/P: 130/76mmHg HR: 80bpm RR: 20br/min; Non-labored SpO2: 98% RA Focused Physical Exam: A neuro exam was performed and revealed that CN I-XII were in tact. Muscle strength was 4/5 on her left sided extremeties compared to 5/5 on her right sided extremities. It was also observed that the patient had difficulty raising her left eyebrow, although she was able to eventually accomplish the requested task. Results Results: Laboratory Tests 04/04/18 0555: CBC w Diff MAN DIFF ORDERED, RBC 4.10 L, MCV 73.0 L, MCH 23.9 L, MCHC 32.7 L , RDW 18.6 H, MPV 9.5, Gran % 88.2 H, Lymphocytes % 11.7 L, Monocytes % 0.1 L, Eosinophils % 0, Basophils % 0, Absolute Granulocytes 4.9, Absolute Lymphocytes 0.7 L, Absolute Monocytes 0 L, Absolute Eosinophils 0, Absolute Basophils 0, Platelet Estimate ADEQUATE, Polychromasia 1+, Hypochromic- Microcytic 1+, Anisocytosis 1+, Schistocytes 1+ 04/03/182050: Urine Color YEL, Urine Clarity CLEAR, Urine pH 6.5, Ur Specific Elsie 1.010, Urine Protein NEG, Urine Ketones NEG, Urine Nitrite NEG, Urine Bilirubin NEG, Urine Urobilinogen 0.2, Ur Leukocyte Esterase NEG, Ur Microscopic EXAM NOT REQUIRED, Urine Hemoglobin NEG, Urine Glucose NEG, Urine Test NEGATIVE 04/03/18 1950: Anion Gap 11, Estimated GFR 59 L, BUN/Creatinine Ratio 12.7, Glucose 100 H, Calcium 9.4, Iron 24 L, TIBC 370, Ferritin 4.8 L, Total Bilirubin 0.2, AST 14, ALT 25, Alkaline Phosphatase 43, Total Protein 6.7, Albumin 4.0, Globulin 2.7, Albumin/Globulin Ratio 1.5, CBC w Diff NO MAN DIFF REQ, RBC 3.99 L, MCV 73.6 L , MCH 23.8 L, MCHC 32.4 L, RDW 18.9 H, MPV 9.5, Gran % 55.1, Lymphocytes % 25.3, Monocytes % 11.6 H, Eosinophils % 7.6 H, Basophils % 0.4, Absolute Granulocytes 3.1, Absolute Lymphocytes 1.4, Absolute Monocytes 0.7 H, Absolute Eosinophils 0.4, Absolute Basophils 0 Assessment/Plan Assessment: Assessment: This is a 27 y/o AA female with a history of MS for 15 years, Depression, Migraines, DVT/PE, HTN, and Neurogenic bladder presents with new onset and progressive bilateral leg weakness, pain in shoulders and arms bilaterally, and blurred vision for the past two weeks. Lab results indicate a microcytic anemia. Plan: Plan: Multiple Sclerosis Exacerbation Solu Medrol IV x5 days Physical Therapy consult scheduled for this morning Depression Continue home medications Hypertension Continue home medications Migraines Continue home medications History of DVT/PE Continue home medications for prophylaxis Neurogenic Bladder Continue home medications Microcytic Anemia Order Iron profile labs and begin Iron supplement if indicated
[2018-04-04 14:48] VITALS: BP 132/82
[2018-04-04 22:40] VITALS: BP 110/60
[2018-04-05 06:55] VITALS: BP 132/80
--- NOTE | 2018-04-05 07:12 | PN- Housestaff ---
Ryan North 04/05/18711: Subjective Follow-up For: MS Exacerbation Subjective: Patient examined at bedside. Patient's father was present in the room. Patient states that she feels better today. Patient states that the blurriness in her eyes is gone. Patient states that she does have some retro-orbital pain. Patient also states that she still weak in the legs. Patient's upper extremities weakness has resolved. Patient denied fever/chills/night sweats/ chest pain/abdominal pain/lower extremity edema. No acute events overnight Review of Systems Constitutional: Reports: see HPI. Objective Last 24 Hrs of Vital Signs/I&O Vital Signs Date Time Temp Pulse Resp B/P B/P Pulse O2 O2 Flow FiO2 Mean Ox Delivery Rate 04/05 0655 98.8 109 20 132/80 98 Room Air 04/04 2240 98.1 88 19 110/60 98 Room Air 04/04 1448 98.0 97 18 132/82 99 Room Air Intake & Output 04/05 1600 04/05 0800 04/05 0000 Intake Total 500 120 Output Total 600 250 Balance -100 -130 Intake, Oral 500 120 Output, Urine 600 250 Physical Exam General Appearance: Alert, Oriented X3, Cooperative, No Acute Distress Skin: No Rashes Skin Temp/Moisture Exam: Warm/Dry Cardiovascular: Regular Rate, Normal S1, Normal S2 Lungs: Clear to Auscultation, Normal Air Movement Abdomen: Soft, No Tenderness Neurological: Cranial Nerves 3-12 NL, 5/5 F/E B/l Upper Extremity; 4/5 F/E to LLE; 3/5 F/E to RLE Extremities: No Edema Current Medications: Current Medications Sig/Angélica Start time Last Medication Dose Route Stop Time Status Admin Acetaminophen 650 MG Q6P PRN 04/04 0130 AC PO Acetaminophen/ 1 TAB Q8P PRN 04/04 0115 AC 04/05 Butalbital/Caffeine PO 0957 Amitriptyline HCl 25 MG Q12P PRN 04/04 0115 AC 04/04 PO 1216 Apixaban 5 MG BID 04/04 900 AC 04/05 PO 0949 Bupropion HCl 150 MG DAILY 04/04 900 AC 04/05 PO 0949 Diphenhydramine HCl 25 MG .STK-MED ONE 04/05 1036 DC PO 04/05 1037 Diphenhydramine HCl 25 MG ONCE ONE 04/05 0330 DC 04/05 PO 04/05 0331 0322 Docusate Sodium 100 MG BID 04/05 1100 AC PO Ferrous Sulfate 325 MG TID 04/04 09 AC 04/05 PO 0949 Lidocaine 1 PAT DAILY PRN 04/04 0115 AC 04/04 TOP 1729 Medroxyprogesterone 5 MG DAILY 04/04 900 AC 04/05 Acetate PO 0948 Methylprednisolone 1,000 MG DAILY 04/04 900 AC 04/05 Dextrose/Water 1,000 ML IV 04/08 1100 0946 Morphine Sulfate 2 MG Q4P PRN 04/05 0200 04/05 IV 0957 Morphine Sulfate 4 MG .STK-MED ONE 04/04 2159 DC IM 04/04 2200 Morphine Sulfate 4 MG .STK-MED ONE 04/04 1718 DC IM 04/04 1719 Morphine Sulfate 2 MG Q4P PRN 04/04 0130 DC 04/04 IV 1722 Omeprazole 40 MG DAILY AC 04/04 07 AC 04/05 PO 0552 Oxybutynin Chloride 10 MG BID 04/04 09 AC 04/05 PO 0949 Polyethylene Glycol 17 GM DAILY 04/05 1100 AC PO Tizanidine HCl 4 MG BID PRN 04/04 0115 AC PO Topiramate 25 MG TID 04/04 0115 AC 04/05 PO 0949 Tramadol HCl 50 MG Q6P PRN 04/04 0300 AC 04/05 PO 0555 Verapamil HCl 180 MG DAILY 04/04 09 AC 04/05 PO 0950 Zolpidem Tartrate 5 MG AT BEDTIME NEED.. 04/04 0115 AC PO Assessment/Plan Assessment: Ms Smith is a 27yo F with past medical history of progressive multiple sclerosis relapsing remitting per patient, urinary incontinence secondary to neurogenic bladder, DVT/pulmonary embolism on Eliquis, GERD, migraines, hypertension, muscle spasm, chronic pain syndrome, who comes in with a 1-1/2 week history of progressive weakness, headaches, blurred vision, who states that this is similar to her previous flares of MS, admitted for a flare of multiple sclerosis. #Multiple Sclerosis Flare at 8:00pm in the emergency department on April 03, April 04, 1g today April 05. incontinence secondary to neurogenic bladder, and so uses a wheelchair to get to the bathroom as she leaks otherwise. States she has had this for over 15 years. Currently denies any functional limitations, although states she is weak. course. States that if there is significant clinical improvement, can discharge earlier prior to completion of 5 days of Solu-Medrol. upper extremity to flexion and extension, lower extremities are weak today. #Constipation -Pt had Colace and Miralax added to her medications as she only has bowel movements twice a week. #Chronic pain syndrome pain seeking behavior, although not experienced during my clinical interview. #Microcytic anemia #Hypertension #GERD #Migraines IV access DVT prophylaxis Tolerating regular diet PT evaluation: Will continue to monitor. Pt does state some LE weakness, if weakness persists or increases will be placed Problem List: 1. MULTIPLE SCLEROSIS Pain Ratin Pain Location: headache Pain Goal: Pain 4 or less Pain Plan: pathway Tomorrow's Labs & Rationales: Ignacio Sanders 04/05/18 1114: Attending MD Review Statement Attending Statement Attending MD Statement: examined this patient, discuss w/resident/PA/HEAD PORTER BAGGAGE, agreed w/resident/PA/HEAD PORTER BAGGAGE, discussed with family, reviewed EMR data (avail), discussed with nursing, discussed with case mgmt, reviewed images, amended to note Attending Assessment/Plan: Patient will be continue with iv steroids as per neurology recommendations. Constipation add bowel regimen, montor for bowel movements generalised weakness chronic pain c/w home meds rest supportive care
--- NOTE | 2018-04-05 08:33 | PN- Student ---
Subjective Subjective: CC: MS Exacerbation HPI: 27 y/o AA female with a history of MS for 15 years, Depression, Migraines, DVT/PE, HTN, and Neurogenic bladder presents with new onset and progressive bilateral leg weakness, pain in shoulders and arms bilaterally, and blurred vision for the past two weeks. Patient denies numbness, tingling, and eye pain. Advised by outpatient Neurologist, Dr. Tillman, to come to the hospital for a course of IV steroids. Patient was interviewed and examined at bedside in the ER this morning by both myself and Dr. North. Patient stated that "she is feeling better" overall and feels that "the walking is better", but is still experiencing weakness in her lower extremities bilaterally. Patient states that the blurred vision she has been experiencing this past week has resolved and that she is now experiencing eye pain that is described as pain of the eye itself, bilaterally. Objective Objective: Vitals: Temp: 98F B/P: 130/22mmHg HR: 109bpm RR: 20br/min SpO2: 98% RA Focused Physical Exam: A neuro exam was performed and revealed that CN II-XII were in tact. Muscle strength was 5/5 on her ULE and URE in both flexion and extension at the elbow. Muslce strength was 3/5 on her LLE and 4/5 on her distal RLE. The patient continues to have difficulty raising her left eyebrow, although she is able to accomplish the requested task. Crankshaft Grinder strength in tact for both hands bilaterally. Results Results: Laboratory Tests 04/04/18 0555: CBC w Diff MAN DIFF ORDERED, RBC 4.10 L, MCV 73.0 L, MCH 23.9 L, MCHC 32.7 L , RDW 18.6 H, MPV 9.5, Gran % 88.2 H, Lymphocytes % 11.7 L, Monocytes % 0.1 L, Eosinophils % 0, Basophils % 0, Absolute Granulocytes 4.9, Absolute Lymphocytes 0.7 L, Absolute Monocytes 0 L, Absolute Eosinophils 0, Absolute Basophils 0, Platelet Estimate ADEQUATE, Polychromasia 1+, Hypochromic- Microcytic 1+, Anisocytosis 1+, Schistocytes 1+ 04/03/182050: Urine Color YEL, Urine Clarity CLEAR, Urine pH 6.5, Ur Specific [place] 1.010, Urine Protein NEG, Urine Ketones NEG, Urine Nitrite NEG, Urine Bilirubin NEG, Urine Urobilinogen 0.2, Ur Leukocyte Esterase NEG, Ur Microscopic EXAM NOT REQUIRED, Urine Hemoglobin NEG, Urine Glucose NEG, Urine Test NEGATIVE 04/03/18 1950: Anion Gap 11, Estimated GFR 59 L, BUN/Creatinine Ratio 12.7, Glucose 100 H, Calcium 9.4, Iron 24 L, TIBC 370, Ferritin 4.8 L, Total Bilirubin 0.2, AST 14, ALT 25, Alkaline Phosphatase 43, Total Protein 6.7, Albumin 4.0, Globulin 2.7, Albumin/Globulin Ratio 1.5, CBC w Diff NO MAN DIFF REQ, RBC 3.99 L, MCV 73.6 L , MCH 23.8 L, MCHC 32.4 L, RDW 18.9 H, MPV 9.5, Gran % 55.1, Lymphocytes % 25.3, Monocytes % 11.6 H, Eosinophils % 7.6 H, Basophils % 0.4, Absolute Granulocytes 3.1, Absolute Lymphocytes 1.4, Absolute Monocytes 0.7 H, Absolute Eosinophils 0.4, Absolute Basophils 0 Assessment/Plan Assessment: Assessment: This is a 27 y/o AA female with a history of MS for 15 years, Depression, Migraines, DVT/PE, HTN, and Neurogenic bladder presents with new onset and progressive bilateral leg weakness, pain in shoulders and arms bilaterally, and blurred vision for the past two weeks. Lab results indicate a microcytic anemia. She is being treated for both her MS exacerbation and Microcytic anemia. Plan: Plan: Multiple Sclerosis Exacerbation Continue Solu Medrol IV to complete 5 days of therapy Awaiting Physical Therapy consult Microcytic Anemia Ferrous Sulfate 325mg TID Depression Continue home medications Hypertension Continue home medications Migraines Continue home medications History of DVT/PE Continue home medications for chronic prophylaxis Neurogenic Bladder Continue home medications
[2018-04-05 14:15] VITALS: BP 110/68
--- NOTE | 2018-04-05 14:33 | Patient Discharge Instructions ---
Discharge Instructions General Discharge Information Special Instructions: - Please follow up with your neurologist Dr. Tillman within 1-2 weeks of discharge. - Please follow up with your primary care physician within 1-2 weeks of discharge. Inform your primary care physician of this admission to [facility]. - Continue your current medications per discharge instructions. - Please watch for these problems: Fever, Chills, Nausea, Vomiting, Shortness of Breath, Productive Cough, Chest Pain/Discomfort, Abdominal Pain, Active Bleeding or Bloody urine/stool. Diet Continue normal diet: Yes Activity Full Activity/No Limits: No Activity Self Limited: Yes Acute Coronary Syndrome Inclusion Criteria At DC or during hospital stay patient has or had the following: ACS DIAGNOSIS No Discharge Core Measures Meds if any: Prescribed or Continued at Discharge Meds if any: NOT Prescribed or Continued at Discharge Congestive Heart Failure Inclusion Criteria At DC or during hospital stay patient has or had the following: CHF DIAGNOSIS No Discharge Core Measures Meds if any: Prescribed or Continued at Discharge Meds if any: NOT Prescribed or Continued at Discharge Cerebrovascular accident Inclusion Criteria At DC or during hospital stay patient has or had the following: CVA/TIA Diagnosis No Discharge Core Measures Meds if any: Prescribed or Continued at Discharge Meds if any: NOT Prescribed or Continued at Discharge Venous thromboembolism Inclusion Criteria VTE Diagnosis No VTE Type NONE VTE Confirmed by (Test) NONE Discharge Core Measures - Per Current guidelines, there needs to be overlap - treatment for the first 5 days of Warfarin therapy. - If discharged on Warfarin prior to 5 days of - overlap therapy, the patient will need to be - assessed for post discharge needs including - *Post discharge parental anticoagulation - *Warfarin and/or parental anticoagulation education - *Follow up date to check INR post discharge At least 5 days overlap therapy as Inpatient No Meds if any: Prescribed or Continued at Discharge Note: Overlap Therapy is Warfarin and Anticoagulant Meds if any: NOT Prescribed or Continued at Discharge
[2018-04-05 22:14] VITALS: BP 126/80
[2018-04-06 06:46] VITALS: BP 115/80
--- NOTE | 2018-04-06 07:13 | PN- Housestaff ---
See Addendum Subjective Follow-up For: MS Exacerbation Subjective: Patient seen and examined at bedside. Patient states that while she she knows she might be going today, she thinks that she could use 1 more day in the hospital with IV steroids. She states that she knows she will get it, as opposed to p.o. steroids where "something can happen". She states that yesterday she had a mini anxiety attack. She does state that she no longer has blurred vision, and the retro-orbital pain has decreased, however she states she still has a week. She also states that her extremities feel much stronger. She denies fevers/chills/night sweats/chest pain/abdominal pain/lower extremity edema Review of Systems Constitutional: Reports: see HPI. Objective Last 24 Hrs of Vital Signs/I&O Vital Signs Date Time Temp Pulse Resp B/P B/P Pulse O2 O2 Flow FiO2 Mean Ox Delivery Rate 04/06 0646 98.4 99 20 115/80 99 Room Air 04/05 2214 98.5 101 20 126/80 97 04/05 1415 98.2 118 20 110/68 99 Room Air Intake & Output 04/06 1600 04/06 0800 04/06 0000 Intake Total 150 120 Output Total 800 Balance 150 -680 Intake, IV 50 20 Intake, Oral 100 100 Output, Urine 800 Physical Exam General Appearance: Alert, Oriented X3, Cooperative, No Acute Distress Skin: No Rashes Skin Temp/Moisture Exam: Warm/Dry Cardiovascular: Regular Rate, Normal S1, Normal S2 Lungs: Clear to Auscultation, Normal Air Movement Abdomen: Soft, No Tenderness Neurological: Normal Speech, Cranial Nerves 3-12 NL, 5/5 B/L Upper extremities, 5/5 RLE, 5/5 Flexion LLE 4/5 Extension LLE Extremities: No Edema Vascular: Normal Pulses Current Medications: Current Medications Sig/Angélica Start time Last Medication Dose Route Stop Time Status Admin Acetaminophen 650 MG Q6P PRN 04/04 0130 AC PO Acetaminophen/ 1 TAB Q8P PRN 04/04 0115 AC 04/05 Butalbital/Caffeine PO 0957 Al Hydroxide/Mg 30 ML .STK-MED ONE 04/05 2139 DC Hydroxide PO 04/05 214 Al Hydroxide/Mg 30 ML ONCE ONE 04/05 2100 DC 04/05 Hydroxide PO 04/05 2101 2141 Amitriptyline HCl 25 MG Q12P PRN 04/04 0115 AC 04/04 PO 1216 Apixaban 5 MG BID 04/04 09 AC 04/05 PO 2010 Bupropion HCl 150 MG DAILY 04/04 09 AC 04/05 PO 0949 Diphenhydramine HCl 25 MG .STK-MED ONE 04/05 1036 DC PO 04/05 1037 Docusate Sodium 100 MG BID 04/05 1100 AC 04/05 PO 2010 Ferrous Sulfate 325 MG TID 04/04 09 AC 04/05 PO 2010 Lidocaine 1 PAT DAILY PRN 04/04 0115 AC 04/04 TOP 1729 Medroxyprogesterone 5 MG DAILY 04/04 09 AC 04/05 Acetate PO 0948 Methylprednisolone 1,000 MG DAILY 04/04 09 AC 04/05 Dextrose/Water 1,000 ML IV 04/08 1100 0946 Morphine Sulfate 2 MG Q4P PRN 04/05 0200 AC 04/06 IV 0557 Omeprazole 40 MG DAILY AC 04/04 07 AC 04/06 PO 0557 Oxybutynin Chloride 10 MG BID 04/04 09 AC 04/05 PO 2010 Patient Medication 1 ED ONE ONE 04/05 1800 DC Teaching ED 04/05 1801 Polyethylene Glycol 17 GM DAILY 04/05 1100 AC 04/05 PO 1357 Tizanidine HCl 4 MG BID PRN 04/04 011 AC 04/05 PO 2146 Topiramate 25 MG TID 04/04 011 AC 04/05 PO 2010 Tramadol HCl 50 MG Q6P PRN 04/04 0300 AC 04/05 PO 2146 Verapamil HCl 180 MG DAILY 04/04 09 AC 04/05 PO 0950 Zolpidem Tartrate 5 MG AT BEDTIME NEED.. 04/04 011 AC 04/05 PO 2012 Last 24 Hrs of Lab/Dani Results Last 24 Hrs of Labs/Mics: Laboratory Tests 04/06/18 0600: CBC w Diff Pending, WBC Pending, RBC Pending, Hgb Pending, Hct Pending, MCV Pending, MCH Pending, MCHC Pending, RDW Pending, Plt Count Pending, MPV Pending Assessment/Plan Assessment: Ms Smith is a 27yo F with past medical history of progressive multiple sclerosis relapsing remitting per patient, urinary incontinence secondary to neurogenic bladder, DVT/pulmonary embolism on Eliquis, GERD, migraines, hypertension, muscle spasm, chronic pain syndrome, who comes in with a 1-1/2 week history of progressive weakness, headaches, blurred vision, who states that this is similar to her previous flares of MS, admitted for a flare of multiple sclerosis. #Multiple Sclerosis Flare - resolving at 8:00pm in the emergency department on April 03, April 04, 1g today April 05, April 06. Will receive one last dose tomorrow then discharge incontinence secondary to neurogenic bladder, and so uses a wheelchair to get to the bathroom as she leaks otherwise. States she has had this for over 15 years. Currently denies any functional limitations, although states she is weak. course. States that if there is significant clinical improvement, can discharge earlier prior to completion of 5 days of Solu-Medrol. upper extremity to flexion and extension, lower extremities improved strength. #Constipation -Pt had Colace and Miralax added to her medications as she only has bowel movements twice a week. Will add milk of mag as patient has not had a bowel movement overnight #Chronic pain syndrome pain seeking behavior, although not experienced during my clinical interview. #Microcytic anemia #Hypertension #GERD -Had heartburn yesterday, was given MAALOX #Migraines IV access DVT prophylaxis Tolerating regular diet PT evaluation: Will continue to monitor. Pt does state some LE weakness, if weakness persists or increases will be placed Dispo - to home, potentially today Problem List: 1. MULTIPLE SCLEROSIS Pain Ratin Pain Location: na Pain Goal: Pain 4 or less Pain Plan: pathway Tomorrow's Labs & Rationales: na
--- NOTE | 2018-04-06 08:04 | PN- Student ---
Subjective Subjective: HPI: 27 y/o AA female with a history of MS for 15 years, Depression, Migraines, DVT/PE, HTN, and Neurogenic bladder presents with new onset and progressive bilateral leg weakness, pain in shoulders and arms bilaterally, and blurred vision for the past two weeks. Patient denies numbness, tingling, and eye pain. Advised by outpatient Neurologist, Dr. Tillman, to come to the hospital for a course of IV steroids. Patient was interviewed and examined at bedside in the ER this morning by both myself and Dr. North. Patient stated that "she wants to stay another day" to ensure that she gets her steroid regimen all through IV instead of PO because "at least if it is IV, I know I get it all". Patient states that she has a constant headache and experienced an anxiety attack yesterday. Patient states that the eye pain she complained of yesterday is resolving. Objective Objective: Vitals: Temp: 98.4F; Oral B/P: 115/80mmHg HR: 99bpm RR: 20br/min SpO2: 99% RA Focused Physical Exam: A neuro exam was performed and is improved compared to yesterday's neuro exam.and CN II-XII in tact. Muscle strength was 5/5 on her ULE and URE in both flexion and extension at the elbow. Muscle strength was 4/5 with extension and 5 /5 with flexion with her LLE and 5/5 on her distal RLE. The patient continues to have difficulty raising her left eyebrow. Results Results: Laboratory Tests 04/06/18 0600: CBC w Diff Pending, WBC Pending, RBC Pending, Hgb Pending, Hct Pending, MCV Pending, MCH Pending, MCHC Pending, RDW Pending, Plt Count Pending, MPV Pending 04/04/18 0555: CBC w Diff MAN DIFF ORDERED, RBC 4.10 L, MCV 73.0 L, MCH 23.9 L, MCHC 32.7 L , RDW 18.6 H, MPV 9.5, Gran % 88.2 H, Lymphocytes % 11.7 L, Monocytes % 0.1 L, Eosinophils % 0, Basophils % 0, Absolute Granulocytes 4.9, Absolute Lymphocytes 0.7 L, Absolute Monocytes 0 L, Absolute Eosinophils 0, Absolute Basophils 0, Platelet Estimate ADEQUATE, Polychromasia 1+, Hypochromic- Microcytic 1+, Anisocytosis 1+, Schistocytes 1+ 04/03/182050: Urine Color YEL, Urine Clarity CLEAR, Urine pH 6.5, Ur Specific [place] 1.010, Urine Protein NEG, Urine Ketones NEG, Urine Nitrite NEG, Urine Bilirubin NEG, Urine Urobilinogen 0.2, Ur Leukocyte Esterase NEG, Ur Microscopic EXAM NOT REQUIRED, Urine Hemoglobin NEG, Urine Glucose NEG, Urine Test NEGATIVE 04/03/181949: Anion Gap 11, Estimated GFR 59 L, BUN/Creatinine Ratio 12.7, Glucose 100 H, Calcium 9.4, Iron 24 L, TIBC 370, Ferritin 4.8 L, Total Bilirubin 0.2, AST 14, ALT 25, Alkaline Phosphatase 43, Total Protein 6.7, Albumin 4.0, Globulin 2.7, Albumin/Globulin Ratio 1.5, CBC w Diff NO MAN DIFF REQ, RBC 3.99 L, MCV 73.6 L , MCH 23.8 L, MCHC 32.4 L, RDW 18.9 H, MPV 9.5, Gran % 55.1, Lymphocytes % 25.3, Monocytes % 11.6 H, Eosinophils % 7.6 H, Basophils % 0.4, Absolute Granulocytes 3.1, Absolute Lymphocytes 1.4, Absolute Monocytes 0.7 H, Absolute Eosinophils 0.4, Absolute Basophils 0 Assessment/Plan Assessment: This is a 27 y/o AA female with a history of MS for 15 years, Depression, Migraines, DVT/PE, HTN, and Neurogenic bladder presents with new onset and progressive bilateral leg weakness, pain in shoulders and arms bilaterally, and blurred vision for the past two weeks. Lab results indicate a microcytic anemia. She is being treated for both her MS exacerbation and Microcytic anemia. Plan: Multiple Sclerosis Exacerbation Continue Solu Medrol IV to complete 5 days of therapy Microcytic Anemia Ferrous Sulfate 325mg TID Depression Continue home medications Hypertension Continue home medications Migraines Continue home medications History of DVT/PE Continue home medications for chronic prophylaxis Neurogenic Bladder Continue home medication
[2018-04-06 08:49] LABS: ABSOLUTE BASOPHIL COUNT 0 /CUMM (0.0-0.2); ABSOLUTE EOSINOPHIL COUNT 0 /CUMM (0.0-0.7); ABSOLUTE GRANULOCYTE CT 16.7 /CUMM (1.4-6.5); ABSOLUTE LYMPH COUNT 1.2 /CUMM (1.2-3.4); ABSOLUTE MONOCYTE COUNT 0.3 /CUMM (0.10-0.60); BASOPHIL % 0 % (0.0-2.0); EOSINOPHIL % 0.1 % (0-5)
[2018-04-06 09:01] LABS: HEMATOCRIT 30.3 % (37-47); MEAN CORPUSCULAR HGB 24.4 PG (27.0-31.0); MEAN CORPUSCULAR HGB CONC 32.5 G/DL (33.0-37.0); MEAN CORPUSCULAR VOLUME 74.9 FL (81.0-99.0); MEAN PLATELET VOLUME 10.1 FL (7.4-10.4); PLATELET COUNT 354 /CUMM (130-400); RBC DISTRIBUTION WIDTH 19.1 % (11.5-14.5); RED BLOOD CELL CT 4.05 /CUMM (4.20-5.40)
[2018-04-06 09:06] LABS: WHITE BLOOD CELL COUNT 17.8 /CUMM (4.8-10.8)
[2018-04-06 10:05] LABS: GRANULOCYTE % 92.1 % (42.2-75.2)
[2018-04-06 13:45] VITALS: BP 126/76
[2018-04-06] MEDS ORDERED: DOCUSATE SODIU100 M3 PO (13:50)
[2018-04-06] MEDS ORDERED: FERROUS SULFAT325 M2 PO (13:50)
[2018-04-06] MEDS ORDERED: MIRALAX119 GM PO (13:50)
--- NOTE | 2018-04-06 14:15 | Discharge Summary ---
See Addendum Visit Information Visit Dates Admission Date: 04/03/18 Discharge Date: 04/08/18 Hospital Course Course Attending Physician: Ignacio Mendieta MD Primary Care Physician: Miri RODRIGUEZ,Aldo Hernandez Hospital Course: Ms. Smith is a 27 -year-old lady with past medical history significant for MS (on Cardizem and plasmapheresis), migraine headaches, PE, GERD, and Urinary incontinence who was sent in by her neurologist for IV steroids for her MS exacerbation. Patient has been having weakness in her bilateral upper and lower extremities, headache and blurred vision for the past 1.5 weeks. She attributed the symptoms to warm weather, as her symptoms are always present [place]car[place] but yesterday her symptoms got worse and she decided on her neurologist asked her to go to the ER for IV steroid administration. She uses a walker to ambulate at home. She also reports pain in her lower back which is chronic and left shoulder. Denies any fever/chills, cough, chest pain, shortness of breath, palpitations, abdominal pain, diarrhea/constipation or nausea/vomiting. She gets locally summa is every 6 months and has been on it for the past 1 year. Her plasmapharesis is scheduled once every month for the past 2 yrs and she is due for her next session at the end of this month. Vitals on admission were Temp 98.3, HR 101, RR 18, BP 135/83 and O2 sats 99% on Room Air. On Physical Exam sh has 4/5 strenght in bilateral lower extremities, otherwise normal physcal exam. Labs significant for H&H of 9.5/29.4, RDW 18.9, BUN/ Cr 14/1.1, Blood Glucose 100. Patient was admitted to general medicine floors for management of her MS flare. She was started on IV Solumedrol 1g, initiailly in the ED and then up on the floors, 1g/day for a [address] German her outpt MS doctor was informed and agreed with plan. She was also found to be anemic, iron deficiency, and was started on Ferrous Sulfate with improvement in her hemoglobin. Her blurred vision resolved, followed by her lower and upper extremity weakness. She remained vitally stable, completed her five day course of steroids. She complained of constipation during her stay, was started on a bowel regimen that will be continued outpatient which is Colace and Miralax. She will follow-up with her neurologist, as well as PCP upon discharge. Allergies: Coded Allergies: NO KNOWN ALLERGIES (09/18/15) Disposition Summary Disposition Principal Diagnosis: #Multiple Sclerosis flare #Neurogenic Bladder #GERD #Migraine #Constipation #HTN #Chronic pain syndrome #Chronic microcytic anemia 2/2 iron deficiency Additional Diagnosis: as above Discharge Disposition: home health services Discharge Instructions General Discharge Information Code Status: Full Code Patient's Diet: As tolerated Patient's Activity: As tolerated Follow-Up Instructions/Appts: - Please follow up with your Neurologist of choice within 1-2 weeks of discharge. - Please follow up with your primary care physician within 1-2 weeks of discharge. Inform your primary care physician of this admission to [facility]. - Continue your current medications per discharge instructions. - Please watch for these problems: Fever, Chills, Nausea, Vomiting, Shortness of Breath, Productive Cough, Chest Pain/Discomfort, Abdominal Pain, Active Bleeding or Bloody urine/stool. Medications at Discharge Discharge Medications: Stop taking the following medications: Amoxicillin (Amoxicillin) 500 MG CAPSULE ORAL THREE TIMES DAILY Qty = 21 Verapamil HCl (Verapamil ER) 240 MG TABLET.ER ORAL DAILY Qty = 30 Continue taking these medications: Ergocalciferol (Vitamin D2) (Vitamin D2) 50,000 UNIT CAPSULE 1 Capsule ORAL EVERY MONDAY Qty = 4 Comments: NOT GIVEN Oxybutynin Chloride (Oxybutynin Chloride) 5 MG TABLET 2 Tablet ORAL TWICE DAILY Qty = 360 Comments: NOT GIVEN Topiramate (Topamax) 25 MG TABLET 1 Tablet ORAL THREE TIMES DAILY Comments: Last Taken: 02/05/18 Time: 9:00 am Tramadol HCl (Tramadol HCl) 50 MG TABLET 1 Tablet ORAL THREE TIMES DAILY Qty = 180 Comments: Last Taken: 02/05/18 Time: 8:47 am Apixaban (Eliquis) 5 MG TABLET 1 Tablet ORAL TWICE DAILY Comments: Last Taken: 02/05/18 Time: 8:47 am Ocrelizumab (Ocrevus) 300 MG/10 ML VIAL 300 Milligram IV Q6M Qty = 20 Comments: NOT GIVEN Pantoprazole Sodium (Pantoprazole Sodium) 40 MG TABLET.DR 1 Tablet ORAL DAILY Qty = 90 Comments: Last Taken: 02/05/18 Time: 6:00 am po prilosec given while in hospital Bupropion HCl (Bupropion HCl Sr) 150 MG TABLET.ER 1 Tablet ORAL DAILY Qty = 90 Comments: Last Taken: 02/05/18 Time: 8:47 am Lidocaine (Lidocaine) 5 % ADH..PATCH 1 Patch On the skin As Directed as needed for PAIN Qty = 90 Comments: Last Taken: 02/05/18 Time: 8:47 am Medroxyprogesterone Acetate (Provera) 5 MG TABLET 1 Tablet ORAL As Directed as needed for MESNTRUAL CYCLE Qty = 90 Comments: Last Taken: 02/05/18 Time: 8:47 am Tizanidine HCl (Tizanidine HCl) 2 MG TABLET 1-2 Tablet ORAL TWICE DAILY as needed for MUSCLE SPASMS Qty = 120 Comments: NOT GIVEN Neomycin/Polymyxin B Sulf/Hc (Rvwhmclh-Ymmklmmmn-Cx Ear Soln) 3.5 MG/ML-10,000 UNIT/ML-1 % SOLUTION 2-3 DROP OTIC As Directed as needed for ITCHING Comments: NOT GIVEN IN HOSPITAL Cholecalciferol (Vitamin D3) (Vitamin D) 2,000 UNIT TABLET 1 Tablet ORAL DAILY Qty = 30 Comments: NOT GIVEN Butalb/Acetaminophen/Caffeine (Jbozzm-Viliwlfl-Anwu 50-325-40) 50 MG-325 MG-40 MG TABLET 1 Tablet ORAL EVERY 8 HOURS NEEDED as needed for HEADACHE Qty = 30 Comments: Last Taken: 02/05/18 Time: 8:47 am Amitriptyline HCl (Amitriptyline HCl) 25 MG TABLET 1 Tablet ORAL Every 12 hours as needed Comments: NOT GIVEN Eszopiclone (Eszopiclone) 3 MG TABLET 1 Tablet ORAL Every night as needed for insomnia Comments: NOT GIVEN Ibuprofen (Ibuprofen) 800 MG TABLET 1 Tablet ORAL EVERY 8 HOURS Comments: Last Taken: 02/05/18 Time: 06:19 am Pregabalin (Lyrica) 150 MG CAPSULE 1 Capsule ORAL TWICE DAILY as needed for back pain Comments: Last Taken: 02/03/18 Time: 12:19 PM Methocarbamol (Robaxin-750) 750 MG TABLET 1 Tablet ORAL TWICE DAILY as needed for back pain Comments: NOT GIVEN Oxycodone HCl (Oxycodone HCl) 10 MG TABLET 10 Milligram ORAL EVERY 4 HOURS NEEDED as needed for PAIN SCALE 4-6 ( MODERATE) Qty = 12 Comments: Last Taken: 02/05/18 Time: 10:55 am Verapamil HCl (Verapamil ER) 180 MG TABLET.ER 1 Tablet ORAL DAILY Start taking the following new medications: Ferrous Sulfate (Ferrous Sulfate) 325 MG (65 MG IRON) TABLET.DR 325 Milligram ORAL TWICE DAILY Qty = 60 No Refills Docusate Sodium (Docusate Sodium) 100 MG CAPSULE 100 Milligram ORAL TWICE DAILY as needed for CONSTIPATION Qty = 60 No Refills Polyethylene Glycol 3350 (Miralax) 17 GRAM/DOSE POWDER 17 Gram ORAL DAILY as needed for CONSTIPATION Qty = 30 No Refills Copies To: Miri RODRIGUEZ,Aldo Hernandez
[2018-04-06 22:39] VITALS: BP 120/80
[2018-04-07 06:58] VITALS: BP 100/60
--- NOTE | 2018-04-07 10:12 | PN- Housestaff ---
Odalis Connors 04/07/18 1012: Subjective Follow-up For: MS exacerbation with weakness and blurry vision Complaints: anxiety; panic attack this morning Subjective: Patient reports a panic attack this morning. She states her last panic attack was approx 3 months ago. She does not know what brought this on. I sat with her and we did some deep breathing techniques and then talked about her family and her hobbies for about 15-20minutes. She feels better. Denies any fever, chills, n/v/d, chest pain, SOB. Review of Systems Constitutional: Reports: see HPI. Objective Last 24 Hrs of Vital Signs/I&O Vital Signs Date Time Temp Pulse Resp B/P B/P Pulse O2 O2 Flow FiO2 Mean Ox Delivery Rate 04/07 1456 98.5 98 20 140/90 96 Room Air 04/07 0925 86 124/78 04/07 0658 97.8 60 18 100/60 94 04/06 2239 98.8 84 18 120/80 97 Intake & Output 04/07 1600 04/07 0800 04/07 0000 Intake Total 120 120 Output Total 800 Balance -800 120 120 Intake, IV 20 20 Intake, Oral 100 100 Output, Urine 800 Patient 202 lb Weight Physical Exam General Appearance: Alert, Oriented X3, Cooperative, Mild Distress Skin: No Rashes Skin Temp/Moisture Exam: Warm/Dry HEENT: Atraumatic, PERRLA Neck: Supple Cardiovascular: Regular Rate, Normal S1, Normal S2 Lungs: Clear to Auscultation Abdomen: Normal Bowel Sounds, Soft, No Tenderness Neurological: decreased strength LLE 4/5 Extremities: No Edema, Normal Pulses Assessment/Plan Assessment: Ms Smith is a 27yo F with past medical history of progressive multiple sclerosis relapsing remitting per patient, urinary incontinence secondary to neurogenic bladder, DVT/pulmonary embolism on Eliquis, GERD, migraines, hypertension, muscle spasm, chronic pain syndrome, who comes in with a 1-1/2 week history of progressive weakness, headaches, blurred vision, who states that this is similar to her previous flares of MS, admitted for a flare of multiple sclerosis. #Multiple Sclerosis Flare - resolving at 8:00pm in the emergency department on April 03, April 04, April 05, April 06, April 07. Will receive one last dose tomorrow then discharge incontinence secondary to neurogenic bladder, and so uses a wheelchair to get to the bathroom as she leaks otherwise. States she has had this for over 15 years. Currently denies any functional limitations, although states she is weak. course. States that if there is significant clinical improvement, can discharge earlier prior to completion of 5 days of Solu-Medrol. upper extremity to flexion and extension, lower extremities improved strength. #Constipation -Pt had Colace and Miralax added to her medications as she only has bowel movements twice a week. #Chronic pain syndrome pain seeking behavior; did not appreciate this possibility on my interview today. #Microcytic anemia #Hypertension #GERD -Had heartburn yesterday, was given MAALOX #Migraines #Leukocytosis 17.8 from 5.6-expected in the setting of steroid administration -continue to monitor IV access DVT prophylaxis Tolerating regular diet PT evaluation: Will continue to monitor. Pt does state some LE weakness, if weakness persists or increases will be placed Dispo - to home, potentially 04/08 Problem List: 1. Multiple sclerosis exacerbation Pain Ratin Pain Location: none Pain Goal: Remain pain free Pain Plan: see a/p Tomorrow's Labs & Rationales: none Dandre RODRIGUEZ,Amir 04/07/18 1148: Attending MD Review Statement Attending Statement Attending MD Statement: examined this patient, discuss w/resident/PA/ALUMINUM SIDING INSTALLER, agreed w/resident/PA/ALUMINUM SIDING INSTALLER, reviewed EMR data (avail), discussed with nursing Attending Assessment/Plan: Ms. Medrano was seen and evaluated. Reports little anxious otherwise no complaints. Currently receiving IV steroids. Likely d/c home in am rest of the plan as per sourcing internship's note
[2018-04-07 14:56] VITALS: BP 140/90
[2018-04-07 21:53] VITALS: BP 120/76
[2018-04-08 06:30] VITALS: BP 114/80
[2018-04-08 08:45] VITALS: BP 114/80
--- NOTE | 2018-04-08 09:09 | PN- Housestaff ---
See Addendum Subjective Follow-up For: MS exacerbation Subjective: Patient seen and examined at bedside. Pt denies complaints. States that her flare has resolved. States that her legs and extremities feel much stronger. Patient did complain that her neurologist did not see her at all during his hospital admission. Patient was inquiring about whether or not she could see an outside neurologist, became tearful, talked about the difficulties of living with MS for over 15 years. Patient reassured, empathized with. Denies fevers/ chills/night sweats/chest pain/abdominal pain/urinary symptoms/lower extremity edema Review of Systems Constitutional: Reports: see HPI. Objective Last 24 Hrs of Vital Signs/I&O Vital Signs Date Time Temp Pulse Resp B/P B/P Pulse O2 O2 Flow FiO2 Mean Ox Delivery Rate 04/08 0630 98.4 78 18 114/80 98 Room Air 04/07 2153 98.9 81 16 120/76 98 Room Air 04/07 1456 98.5 98 20 140/90 96 Room Air 04/07 0925 86 124/78 Intake & Output 04/08 1600 04/08 0800 04/08 0000 Intake Total 260 250 Output Total 550 850 Balance -290 -600 Intake, IV 20 Intake, Oral 240 250 Output, Urine 550 850 Patient 200 lb Weight Physical Exam General Appearance: Alert, Oriented X3, Cooperative, No Acute Distress Skin: No Rashes Skin Temp/Moisture Exam: Warm/Dry Cardiovascular: Regular Rate, Normal S1, Normal S2 Lungs: Clear to Auscultation, Normal Air Movement Abdomen: Soft, No Tenderness Neurological: Strength at 5/5 X4 Ext Extremities: No Edema Current Medications: Current Medications Sig/Angélica Start time Last Medication Dose Route Stop Time Status Admin Acetaminophen 650 MG Q6P PRN 04/04 0130 AC PO Acetaminophen/ 1 TAB Q8P PRN 04/04 0115 AC 04/08 Butalbital/Caffeine PO 0844 Al Hydroxide/Mg 30 ML .STK-MED ONE 04/07 2113 DC Hydroxide PO 04/07 2114 Al Hydroxide/Mg 30 ML Q4-6 PRN PRN 04/06 2345 AC 04/07 Hydroxide PO 2114 Amitriptyline HCl 25 MG Q12P PRN 04/04 0115 AC 04/04 PO 1216 Apixaban 5 MG BID 04/04 0900 AC 04/08 PO 0845 Bupropion HCl 150 MG DAILY 04/04 0900 AC 04/08 PO 0846 Docusate Sodium 100 MG BID 04/05 1100 AC 04/08 PO 0846 Ferrous Sulfate 325 MG TID 04/04 09 AC 04/08 PO 0846 Lidocaine 1 PAT DAILY PRN 04/04 0115 04/04 TOP 1729 Magnesium Hydroxide 30 ML ONE PRN 04/06 1500 AC PO Medroxyprogesterone 5 MG DAILY 04/04 09 AC 04/08 Acetate PO 0846 Methylprednisolone 1,000 MG DAILY 04/04 09 DC 04/07 Dextrose/Water 1,000 ML IV 04/08 1100 1035 Morphine Sulfate 2 MG Q4P PRN 04/05 0200 AC 04/08 IV 0840 Omeprazole 40 MG DAILY AC 04/04 07 AC 04/08 PO 0639 Oxybutynin Chloride 10 MG BID 04/04 09 AC 04/08 PO 0845 Polyethylene Glycol 17 GM DAILY 04/05 1100 AC 04/08 PO 0846 Tizanidine HCl 4 MG BID PRN 04/07 1700 AC 04/07 PO 1729 Tizanidine HCl 4 MG BID PRN 04/04 0115 DC 04/05 PO 2146 Topiramate 25 MG TID 04/04 0115 04/08 PO 0846 Tramadol HCl 50 MG Q6P PRN 04/04 0300 AC 04/07 PO 1641 Verapamil HCl 180 MG DAILY 04/04 09 AC 04/08 PO 0845 Zolpidem Tartrate 5 MG AT BEDTIME NEED.. 04/04 0115 04/06 PO 2101 Assessment/Plan Assessment: Ms Smith is a 27yo F with past medical history of progressive multiple sclerosis relapsing remitting per patient, urinary incontinence secondary to neurogenic bladder, DVT/pulmonary embolism on Eliquis, GERD, migraines, hypertension, muscle spasm, chronic pain syndrome, who comes in with a 1-1/2 week history of progressive weakness, headaches, blurred vision, who states that this is similar to her previous flares of MS, admitted for a flare of multiple sclerosis. #Multiple Sclerosis Flare - resolved at 8:00pm in the emergency department on April 03, April 04, today April 05, April 06, April 07. Completed course. incontinence secondary to neurogenic bladder, and so uses a wheelchair to get to the bathroom as she leaks otherwise. States she has had this for over 15 years. Currently denies any functional limitations, although states she is weak. course. States that if there is significant clinical improvement, can discharge earlier prior to completion of 5 days of Solu-Medrol. upper extremity to flexion and extension, lower extremities improved strength. #Constipation -Pt had Colace and Miralax added to her medications as she only has bowel movements twice a week. Will add milk of mag as patient has not had a bowel movement overnight #Chronic pain syndrome pain seeking behavior, although not experienced during my clinical interview. #Microcytic anemia - resolving #Hypertension - controlled #GERD -Maalox at night #Migraines IV access DVT prophylaxis Tolerating regular diet PT evaluation: No intervention at this time Dispo - to home, today Problem List: 1. MULTIPLE SCLEROSIS Pain Ratin Pain Location: na Pain Goal: Pain 4 or less Pain Plan: pathway Tomorrow's Labs & Rationales: na Discharge Plan Discharge Disposition: home Stable for Discharge? Yes
[2018-04-08] MEDS ORDERED: MIRALAX119 GM PO (11:51)
[2018-04-08] MEDS ORDERED: FERROUS SULFAT325 M2 PO (11:51)
[2018-04-08] MEDS ORDERED: DOCUSATE SODIU100 M3 PO (11:51)
== END 2018-04-08 15:00 | DRG 60 ==
LOC: ERH 16:37 → 2NA 23:47 → ERHI 23:47 → ENRESERV 04-04 13:45 → 2NA 04-04 14:26 → ENPENDDIS 04-08 10:48 → 2NA 04-08 15:00
PROVIDERS: Internal Medicine; Physical Medicine & Rehabilitation; Physician Assistant
DX: G35 Multiple sclerosis (principal); N31.8 Other neuromuscular dysfunction of bladder; I10 Essential (primary) hypertension; G43.909 Migraine, unspecified, not intractable, without status migrainosus; F32.9 Major depressive disorder, single episode, unspecified; Z86.711 Personal history of pulmonary embolism; R32 Unspecified urinary incontinence; Z90.49 Acquired absence of other specified parts of digestive tract; G89.4 Chronic pain syndrome; D50.9 Iron deficiency anemia, unspecified; K21.9 Gastro-esophageal reflux disease without esophagitis; N39.498 Other specified urinary incontinence; K59.00 Constipation, unspecified; M54.5 Low back pain; Z79.01 Long term (current) use of anticoagulants
CPT/HCPCS: 2NAP; ERO; 36592; 81003; 81025; J1040; J1885; J3490; J7060